=== PATIENT | female | born 1950 | race Caucasian/White ===

== ENCOUNTER 2016-11-22 07:33 | Emergency (ER) | payer OTHER ==
[~2016-11-22] VITALS: Ht 162.6 cm; Wt 68.0 kg
[~2016-11-22 07:33] MED LIST: ACETYLCYST100 MG/1 M INH; AMBIEN 5 MG TABL5 M1 PO; APAP/CODEINE ELI5 M1 PO; APAP500 PO; ASPIR 8181 MG PO; ASPIRIN325; B & O SUPPRETT1 EAC1 RECTAL; B COMPLEX WITH1 EACH PO; B COMPLEX1 EAC1 PO; BACTRIM DS TAB1 EACH PO; CEPACOL SORE T1 EAC7 MM; CIPROFLOXACIN500 M1 PO; COUMADIN 3 MG TA3 M1 PO; DOXYCYCLINE 10100 MG PO; DUONEB 2.5-0.5 M3 ML INH; EFFIENT10 MG; FIBER TABS625 MG PO; FISH OIL 1,001000 M2 PO; FLEXERIL PO; FLUSH FLUSH; GARLIC OIL1 EACH PO; GARLIC1 EACH PO; HYDROCODONE-AP1 EAC6 PO; KEFLEX500 MG PO; LEVAQUIN 500 M500 M1 PO; LIPITOR40 MG; LISINOPRIL2.5 MG PO; LISINOPRIL20 MG; LOPRESSOR25 PO; MAG-AL PLUS SUS30 ML PO; MAGOX 400400 MG PO; MAXIPIME1 GM IVPB; MIRALAX17 GM PO; MUCINEX TA600 MG/TA2 PO; NITROGLYCERIN0.4 MG; NORCO 5-325 TA1 EACH PO; NOVOLOG100 UNIT/1 SUBQ; NYSTATIN 1100000 U/M SW&SWALLOW; NYSTATIN TOP; PERCOCET 5-3251 EACH PO; PREVACID30 MG PO; PRILOSEC10 MG PER TUBE; PROTONIX40 M1 PO; REMERON15 MG PO; RESTORIL15 MG PO; TOPROL XL25 MG; TOPROL XL25 MG PO; TRAMADOL 50 MG50 MG PO; TYLENOL325 MG PO; ULCER MEDICATION; UNICOMPLEX M TA1 TA1 PO; VITALEE TABLET0.4 MG PO; VITAMINC500 PO; XANAX 0.5 MG0.5 MG PO; ZANAFLEX4 MG PO; ZYVOX600 MG PER TUBE; [UNRECOGNIZED DRUG - OTHER]
[2016-11-22] MEDS ORDERED: MOBIC15 MG PO (07:56)
[2016-11-22 08:48] VITALS: BP 123/71
== END 2016-11-22 08:50 | disposition home or self-care (01) ==
LOC: ER 07:33
DX: M25.511 Pain in right shoulder (principal); M25.512 Pain in left shoulder; M79.602 Pain in left arm; M79.601 Pain in right arm; E78.5 Hyperlipidemia, unspecified; I10 Essential (primary) hypertension; E66.8 Other obesity; Z86.79 Personal history of other diseases of the circulatory system; Z98.890 Other specified postprocedural states; Z88.1 Allergy status to other antibiotic agents; Z88.0 Allergy status to penicillin

== ENCOUNTER 2016-11-29 00:07 | Inpatient (IN) | payer OTHER ==
[2016-11-29] VITALS (9 sets, daily range): BP systolic 122–168; BP diastolic 64–117
[~2016-11-29] VITALS: Ht 167.6 cm; Wt 98.3 kg
--- NOTE | ~2016-11-29 | 2DMMODE ---
[place] [address] [facility] [place] [address] 2 D/M-MODE ECHOCARDIOGRAM Name: NATALI UNGER Room #: 205-P [facility] IN ..#: [id number] Admission: 11/29/16 Attend Phys: Ramses Escobedo, Discharge: Date of : 52 Date of Service: 11/29/16 1657 Report #: [id number] THIS REPORT FOR: //name// APPROVED REPORT Study performed: 11/29/2016 14:07:25 EXAM: Comprehensive 2D, Doppler, and color-flow Echocardiogram Patient Location: Bedside Room #: 205 Blood Pressure: 122/64 mmHg Other Information Study Quality: Technically Difficult Indications CAD Hypertension/HDD 2D Dimensions RVDd: 34.70 mm LVEF(%): 75.90 (>50%) IVSd: 9.79 (7-11mm) LVOT Diam: 17.11 (18-24mm) LVDd: 41.33 mm PWd: 10.46 (7-11mm) Ascending Ao: 29.56 (22-36mm) LVDs: 23.06 (25-40mm) Aortic Root: 24.54 mm IVC: 18.00 mm Tovar's LVEF: 75.90 % Volumes Left Atrial Volume (Systole) Single Plane 4CH: 50.16 mL Single Plane 2CH: 102.84 mL LA ESV Index: 38.00 mL/m2 Aortic Valve AoV Peak Harjeet.: 1.65 m/s AO Peak Gr.: 10.95 mmHg LVOT Max P.30 mmHg LVOT Max V: 1.04 m/s OPAL Vmax: 1.44 cm2 Mitral Valve MV Decel. Time: 211.03 ms [facility] [place] [address] [place] [address] 2 D/M-MODE ECHOCARDIOGRAM Name: NATALI UNGER Room #: 205-P [facility] IN [facility].#: [id number] Admission: 11/29/16 Attend Phys: Ramses Escobedo, Discharge: Date of : 52 Date of Service: 11/29/16 1657 Report #: [id number] MV PHT: 61.20 ms IVRT: 72.66 ms Pulmonary Valve PV Peak Harjeet.: 0.90 m/s PV Peak Gr.: 3.22 mmHg Pulmonary Vein P Vein S: 0.73 m/s P Vein A: 0.19 m/s P Vein D: 0.78 m/s P Vein A Dur.: 93.4 msec P Vein S/D Ratio: 0.94 Tricuspid Valve TR Peak Harjeet.: 3.31 m/s RAP Estimate: 10.00 mmHg TR Peak Gr.: 43.84 mmHg Left Ventricle The left ventricle is normal size. Regional wall motion is not well visualized but grossly normal. There is normal left ventricular wall thickness. The overall left ventricular systolic function appears normal. LVEF is 65-70%. Diastolic function is difficult to assess due to patient being unable to perform the valsalva maneuver. Right Ventricle The right ventricle is normal size. The right ventricular systolic function is normal. Atria Left atrium is mildly dilated. The right atrium size is normal. Aortic Valve The aortic valve is mildly sclerotic No aortic regurgitation is present. There is no aortic valvular stenosis. Mitral Valve The mitral valve is normal in structure. No mitral regurgitation. No evidence of mitral valve stenosis. Tricuspid Valve The tricuspid valve is normal in structure. Mild to moderate tricuspid regurgitation. Pulmonic Valve The pulmonary valve is normal in structure. Trace to mild pulmonic regurgitation. [address] [address] 2 D/M-MODE ECHOCARDIOGRAM Name: NATALI UNGER Room #: 205-P [facility] IN ..#: [id number] Admission: 11/29/16 Attend Phys: Ramses Escobedo, Discharge: Date of : 52 Date of Service: 11/29/16 1657 Report #: [id number] Great Vessels The aortic root is normal in size. The ascending aorta is normal in size. IVC is normal in size and collapses <50% with inspiration. Pericardium There is no pericardial effusion. There is no pleural effusion. <Conclusion> The overall left ventricular systolic function appears normal. LVEF is 65-70%. Regional wall motion is not well visualized but grossly normal. The aortic valve is mildly sclerotic without stenosis or insufficiency The mitral valve is normal in structure. No mitral regurgitation. Pulmonary artery pressure of 40mmHg There is no pericardial effusion. <ELECTRONICALLY SIGNED> By: Landon Gamboa MD, [facility] 11/29/161656 56 56 Landon Gamboa MD, FACC /INF
--- NOTE | ~2016-11-29 | EKG ---
[address] [address] ELECTROCARDIOGRAM REPORT Name: NATALI UNGER Room #: [facility] IN .R.#: [id number] Admission: 11/29/16 Attend Phys: Ramses Escobedo MD Discharge: 11/29/16 Date of : 52 Report #: [id number] THIS REPORT FOR: //name// [facility] Test Date: 2016-11-29 Test Time: 17:12:15 Pat Name: NATALI UNGER Department: Room: 205 Gender: F Wedger Machine: Sivakumar CALVO : 1950 Requested By: Ny Bullock Order Number: [id number] MD: Landon Gamboa Measurements Intervals [place] Rate: 52 P: 34 AL: 184 QRS: -40 QRSD: 101 T: 16 QT: 484 QTc: 451 Interpretive Statements Sinus bradycardia Left axis deviation Low voltage, precordial leads Nonspecific T wave abnormality No previous ECGs available for comparison Electronically Signed On 11-30-2016 7:44:57 CDT by Landon Gamboa [email or web address] <ELECTRONICALLY SIGNED> By: Landon Gamboa MD, [facility] 11/30/16 0744 171 11 Landon Gamboa MD, [facility] /EPI
--- NOTE | ~2016-11-29 | HC ---
[facility] [place] [address] CONSULTATION Name: NATALI UNGER Room #: 205-P [facility] IN ..#: [id number] Admission: 11/29/16 Attend Phys: Ramses Escobedo MD Discharge: 11/29/16 Date of : 52 Report #: [id number] THIS REPORT FOR: //name// CC: Ramses Pendleton DATE OF SERVICE: 11/29/2016 HISTORY OF PRESENT ILLNESS: This is a 65-year-old female patient who was seen by me. I discussed the patient with Dr. Escobedo. This patient is being evaluated for leg weakness. Talking to Dr. Escobedo, it would indicate that this patient's history is pretty inconsistent. She complained of some shoulder pain. She vomited on some staff member, etc. She said she has been unable to move the lower extremities since Sunday. That history cannot be confirmed. Everybody has noticed that the history has been pretty impersistent in this patient. REVIEW OF SYSTEMS: Indicate that this patient was here for encephalopathy at one time. She also has up pleural effusion with congestion. She had some flight of ideas. She had no trauma. According to her, it started spontaneously, on other occasion she said she is somewhat weaken all over the body. She does not cooperate with the examination at all. REVIEW OF SYSTEMS: Indicate she complained of rheumatoid arthritis pain. She has a history of hyperlipidemia. She had gastric ulcer in the past. She has polymyalgia rheumatica. She just like she has a previous history of encephalitis. This was a 14-point review of system, which was carried out. PAST MEDICAL HISTORY: Positive for encephalopathy. FAMILY HISTORY: Negative for early age stroke. SOCIAL HISTORY: She does not smoke or drink any alcohol. PHYSICAL EXAMINATION: Multiple attempts were made to examine this patient, but this patient does not cooperate very well. She moves the legs spontaneously, but when I asked her to move, she does not move. This has been the examination of the other people. She will not cooperate with higher function examination, she just talked irreverently . She has no meningeal sign. She looks reasonably well-developed individual. Pulses are difficult to feel. She has no edema, cyanosis or jaundice. Cardiac examination is stable. She does not appear to be in any respiratory difficulty. She is anemic with a hemoglobin of 9.9. Her INR is 4.6, INR is 4.6. She has not had any imaging study. [facility] [address] [place] [address] CONSULTATION Name: UTENATALI Room #: [facility]#: [id number] Admission: 11/29/16 Attend Phys: Ramses Escobedo MD Discharge: 11/29/16 Date of : 52 Report #: [id number] IMPRESSION: It is not clear what the patient's symptoms are from. Her exam is inconsistent. However, the concern is that she is on blood thinner. Because of that, I think we need to make sure there is no spine pathology for that I ordered an MRI in this patient and I will evaluate that and decide about the further management in this patient. RECOMMENDATIONS: MRI of the spine. I noticed this does not done yet. I would like to make sure that it is done today, even if the symptoms are going on since Sunday according to her. Dr. Ro will take over this patient's care from tomorrow morning at 8:00 and follow up with you. Thank very much for this referral. <ELECTRONICALLY SIGNED> By: Matthew Burns MD 12/02/16 1206 1730 0103 Matthew Burns MD /nt
[~2016-11-29 00:07] MED LIST changes: +MOBIC15 MG PO; +OMEPRAZOLE 20 M20 M1 PO; +PREDNISONE 10 M10 MG PO
[2016-11-29 02:00] LABS: HEMATOCRIT 29.1 % (37.0-47.0); HEMOGLOBIN 9.9 gm/dL (12.0-15.0); MCH 29.9 pg (26.0-34.0); MCHC 34.1 g/dL (28.0-37.0); MCV 87.8 fL (80.0-100.0); PLATELET COUNT 338 thou/uL (150-400); RBC 3.31 mil/uL (4.20-5.00); RDW 13.7 % (10.5-14.5); WBC 11.5 thou/uL (4.0-11.0)
[2016-11-29 02:10] LABS: MANUAL DIFF YES
[2016-11-29 02:14] LABS: ACETAMINOPHEN < 2 ug/mL (10-30); ALBUMIN 2.4 g/dL (3.4-5.0); ALKALINE PHOSPHATASE 167 U/L (46-116); ANION GAP 9 mmol/L (7-16); BUN 47 mg/dL (7-18); CALCIUM 8.2 mg/dL (8.5-10.1); CHLORIDE 108 mmol/L (98-107); CO2 22 mmol/L (21-32); CREATININE 1.3 mg/dL (0.6-1.0); GLUCOSE 157 mg/dL (74-106); POTASSIUM 4.7 mmol/L (3.5-5.1); SALICYLATE < 2.8 mg/dL (2.8-20.0); SGOT 43 U/L (15-37); SGPT 63 U/L (30-65); SODIUM 139 mmol/L (136-145); TOTAL BILIRUBIN 0.2 mg/dL (<0.1-1.0); TOTAL PROTEIN 5.9 g/dL (6.4-8.2)
[2016-11-29 02:27] LABS: ABSOLUTE NEUTROPHILS 9.9 thou/uL (1.4-8.2); MYELOCYTES 1 %; TOTAL CELL COUNT 100
[2016-11-29 08:34] LABS: ALBUMIN 2.4 g/dL (3.4-5.0); ALKALINE PHOSPHATASE 158 U/L (46-116); ANION GAP 6 mmol/L (7-16); BUN 47 mg/dL (7-18); CALCIUM 8.1 mg/dL (8.5-10.1); CHLORIDE 112 mmol/L (98-107); CO2 22 mmol/L (21-32); GLUCOSE 133 mg/dL (74-106); SGOT 35 U/L (15-37); SGPT 60 U/L (30-65); SODIUM 140 mmol/L (136-145); TOTAL BILIRUBIN 0.2 mg/dL (<0.1-1.0); TOTAL PROTEIN 5.5 g/dL (6.4-8.2); TROPONIN-I < 0.04 ng/mL (<0.04-0.07)
[2016-11-29 17:06] LABS: PROTIME 48.1 Seconds (9.3-11.4)
[2016-11-29 17:12] LABS: INR 4.6
[2016-11-30 02:11] LABS: GLYCOHEMOGLOBIN (HGB A1C) 5.9 % (4.8-5.6)
== END 2016-11-29 22:40 | disposition short-term general hospital (02) | DRG 91 ==
LOC: ER 00:07 → EROBS 00:13 → ER 00:13 → EROBS 01:25 → 2N 01:25
PROVIDERS: Internal Medicine; Nurse Practitioner Gerontology; Physician Assistant
PROC: 30233L1 Transfusion of Nonautologous Fresh Plasma into Peripheral Vein, Percutaneous Approach (ICD-10-PCS; principal; 2016-11-29)
PROC: 30233K1 Transfusion of Nonautologous Frozen Plasma into Peripheral Vein, Percutaneous Approach (ICD-10-PCS; principal; 2016-11-29)
DX: G95.19 Other vascular myelopathies (principal); G93.40 Encephalopathy, unspecified; E43 Unspecified severe protein-calorie malnutrition; J96.01 Acute respiratory failure with hypoxia; I50.33 Acute on chronic diastolic (congestive) heart failure; N17.9 Acute kidney failure, unspecified; E78.5 Hyperlipidemia, unspecified; I11.0 Hypertensive heart disease with heart failure; M19.90 Unspecified osteoarthritis, unspecified site; I25.10 Atherosclerotic heart disease of native coronary artery without angina pectoris; D63.8 Anemia in other chronic diseases classified elsewhere; E86.0 Dehydration; Z68.35 Body mass index [BMI] 35.0-35.9, adult; I25.5 Ischemic cardiomyopathy; R41.0 Disorientation, unspecified; Z88.1 Allergy status to other antibiotic agents; Z88.0 Allergy status to penicillin; Z86.718 Personal history of other venous thrombosis and embolism; Z95.5 Presence of coronary angioplasty implant and graft; Z79.82 Long term (current) use of aspirin; Z79.899 Other long term (current) drug therapy; Z95.828 Presence of other vascular implants and grafts; Z91.14 Patient's other noncompliance with medication regimen
CPT/HCPCS: 10081

== ENCOUNTER 2016-12-28 01:11 | Inpatient (IN) | payer OTHER ==
[2016-12-28] VITALS (7 sets, daily range): BP systolic 90–114; BP diastolic 46–68
[~2016-12-28] VITALS: Ht 162.6 cm; Wt 97.5 kg
--- NOTE | ~2016-12-28 | H ---
[facility] [place] [address] HISTORY AND PHYSICAL Name: NATALI UNGER Room #: 305-P [facility] IN M.R.#: [id number] Admission: 12/28/16 Attend Phys: Medardo Soria DO Discharge: 01/01/17 Date of : 52 Report #: [id number] THIS REPORT FOR: //name// CC: Medardo Pendleton ATTENDING PHYSICIAN: Dr. Briceño. PRIMARY CARE PHYSICIAN: Dr. Mara Pendleton. CHIEF COMPLAINT: Dysuria, fever, decreased urine output. HISTORY OF PRESENT ILLNESS: The patient is a 65-year-old female who was just admitted here at [facility] with altered mental status and lower extremity weakness. She was noted during that admission to have thoracic spinal hemorrhages on MRI and was transferred to [facility]. She said she did go right the surgery. She is not exactly sure what was done, but she has since been discharged to rehab facility. She has been there for about the last week. She had been on Coumadin at the time of her spinal bleeding that has since been discontinued. She says she continues to have weakness in her bilateral lower extremities and has not been able to ambulate yet or standing on her own. Apparently last week since arrival, she has been having some low-grade fevers. She says she has not been eating much because she really has not felt well, but denies any nausea, vomiting or diarrhea. She was noted in the ER to have significant UTI and has been admitted for further treatment. She has had a UTI during the past admission, which was positive for VRE and Ranjana. She has been hospitalized for a very long hospitalization in mid 2016 when she was treated for bilateral DVT and PE as well as diastolic heart failure. She developed significant dysphagia and required a PEG tube placement. That has subsequently been removed. She also had an IVC filter Placed. She was also treated for gluteal abscess which was drained. PAST MEDICAL HISTORY: Hyperlipidemia, diastolic heart failure, hypertension, osteoarthritis, obesity, coronary artery disease with stent placement, duodenal ulcer with perforation, possible polymyalgia rheumatica, bilateral DVT, PE, recent thoracic spine hemorrhage, gluteal abscess. PAST SURGICAL HISTORY: Left elbow pinning after fracture, , deviated septum surgery, PEG tube placement with subsequent removal, coronary stents, exploratory laparotomy for perforated ulcer, repair of umbilical hernia, IVC filter placement, gluteal abscess I and D. ALLERGIES: ERYTHROMYCIN and PENICILLIN. HOME MEDICATIONS: Med list was not sent by rehab, so current meds are unknown. We do note she was recently taken off her Coumadin because of her thoracic spine hemorrhages. [address] [address] HISTORY AND PHYSICAL Name: NATALI UNGER Room #: 305-P [facility] IN M.R.#: [id number] Admission: 12/28/16 Attend Phys: Medardo Soria DO Discharge: 01/01/17 Date of : 52 Report #: [id number] SOCIAL HISTORY: The patient is a never smoker, denies any alcohol or drug use. She had been living alone prior to her hospitalization, going to rehab. FAMILY HISTORY: Unknown. She was adopted. REVIEW OF SYSTEMS: Twelve point review of systems was reviewed with the patient and otherwise negative unless stated in the HPI. PHYSICAL EXAMINATION: GENERAL: The patient is an alert female in no acute distress. VITAL SIGNS: Temperature is 37.2, heart rate 82, respirations 18, blood pressure 107/54, oxygen is 95% on room air. HEENT: PERRLA. Sclerae are nonicteric. Oral mucosa is pink and dry. NECK: Supple, no JVD noted. CARDIOVASCULAR: No murmurs, rubs, or gallops. Normal S1, S2. RESPIRATORY: Breath sounds are clear in bilateral upper lobes. She is diminished in both bases. Breathing is nonlabored. ABDOMEN: Obese, soft, and nondistended. She does have significant tenderness across the lower quadrant to palpation, specifically in the suprapubic area. VASCULAR: 1+ bilateral lower extremity edema. Pedal pulses are 2+. GENITOURINARY: She does have a Avery catheter in place with cloudy yellow urine. NEUROLOGIC: The patient is alert and oriented. She is able to answer most questions and follow commands, although she does have significant bilateral lower extremity weakness. She is unable to lift her leg the bed at this time. Her hand grasps were 5/5 and there is no facial asymmetry. LABS AND DIAGNOSTICS: WBC is 14.8, hemoglobin 8.8, platelets 342. Sodium 138, potassium 3.7, BUN 21, creatinine 1.0, and glucose is 108. Lactate is 0.9. INR is 1.0. Urine showed 3+ protein, 1+ ketones, 3+ blood, positive nitrites, 3+ leukocyte esterase, many WBCs, and moderate bacteria. ASSESSMENT AND PLAN: 1. Complicated urinary tract infection. We will change her Avery out because it has not been done recently. Continue with Rocephin and follow urine culture. 2. Recent thoracic spine hemorrhages. She underwent recent surgery for these at [facility]. The incision looks clean, dry and intact. She will need to follow up with her surgeon at [facility] after discharge. 3. History of deep venous thrombosis and pulmonary embolism. Coumadin has been on hold since thoracic spine hemorrhages. She does have an IVC filter in place. She continues to have residual bilateral lower extremity weakness for which she will need to continue with physical therapy. 4. History of coronary artery disease with stents. The patient is denying any chest pain. 5. Anemia. This is acute on chronic. There is likely some component of [facility] [address] [place] [address] HISTORY AND PHYSICAL Name: NATALI UNGER Room #: 305-P [facility] IN [facility].#: [id number] Admission: 12/28/16 Attend Phys: Medardo Soria DO Discharge: 01/01/17 Date of : 52 Report #: [id number] blood loss anemia. Currently no signs of bleeding. 6. Deep venous thrombosis prophylaxis. Place sequential compression devices. We will continue to follow the patient closely throughout the hospitalization and make changes based on clinical status. <ELECTRONICALLY SIGNED> By: GLEN Arenas 01/02/17 0907 0910 1126 GLEN Arenas /nt
[2016-12-28 01:33] LABS: URINE BLOOD 3+ (Negative); URINE COLOR YELLOW; URINE GLUCOSE-RANDOM* NEGATIVE (Negative); URINE KETONES 1+ (Negative); URINE LEUKOCYTES-REFLEX 3+ (Negative); URINE PROTEIN (DIPSTICK) 3+ (Negative); URINE SPECIFIC GRAVITY 1.025 (1.003-1.035); URINE UROBILINOGEN 0.2 E.U./dl (0.2-1.0)
[2016-12-28 01:39] LABS: URINE BILIRUBIN NEGATIVE (Negative)
[2016-12-28 01:40] LABS: ICTOTEST (BILI CONFIRMATORY) Negative (Negative)
[2016-12-28 01:41] LABS: CASTS None Seen /LPF (None Seen); SQUAMOUS None Seen /LPF (0-3); URINE WBC-REFLEX >25 Many /HPF (0-5)
[2016-12-28 01:42] LABS: CRYSTALS None Seen /LPF (None Seen); URINE RBC 3-10 Few /HPF (0-2); WBC CLUMPS Packed (None Seen)
[2016-12-28 02:05] LABS: ABSOLUTE NEUTROPHILS 11.1 thou/uL (1.4-8.2); BASOPHILS 0.5 % (0.0-2.0); EOSINOPHILS 0.7 % (0.0-3.0); HEMATOCRIT 26.8 % (37.0-47.0); HEMOGLOBIN 8.8 gm/dL (12.0-15.0); LYMPHOCYTES 17.4 % (24.0-44.0); MCH 29.8 pg (26.0-34.0); MCV 90.4 fL (80.0-100.0); MONOCYTES 6.7 % (1.0-8.0); PLATELET COUNT 342 thou/uL (150-400); POLYS 74.7 % (36.0-66.0); RBC 2.96 mil/uL (4.20-5.00); WBC 14.8 thou/uL (4.0-11.0)
[2016-12-28 02:09] LABS: MANUAL DIFF NO
[2016-12-28 02:10] LABS: CALCIUM 8.6 mg/dL (8.5-10.1); POTASSIUM 3.7 mmol/L (3.5-5.1)
[2016-12-28 04:58] LABS: PROTIME 10.7 Seconds (9.3-11.4)
[2016-12-28] MEDS ORDERED: COUMADIN 5 MG TA5 M1 PO (05:01)
[2016-12-29] MEDS ORDERED: FLEXERIL PO (02:22)
[2016-12-29] MEDS ORDERED: FLOMAX0.4 MG PO (02:23)
[2016-12-29] MEDS ORDERED: LIDODERM 5%1 PATC1 TRANSDERM (02:24)
[2016-12-29] MEDS ORDERED: OLANZAPINE ODT5 MG PO (02:27)
[2016-12-29] MEDS ORDERED: OXYCONTIN10 M1 PO (02:30)
[2016-12-29] MEDS ORDERED: MOM PO (02:31)
[2016-12-29] MEDS ORDERED: PROTONIX40 M1 PO (02:32)
[2016-12-29] MEDS ORDERED: SEROQUEL 25 MG25 M1 PO (02:33)
[2016-12-29 03:51] LABS: ABSOLUTE NEUTROPHILS 6.3 thou/uL (1.4-8.2); BASOPHILS 0.6 % (0.0-2.0); EOSINOPHILS 1.8 % (0.0-3.0); HEMATOCRIT 24.1 % (37.0-47.0); HEMOGLOBIN 8.1 gm/dL (12.0-15.0); LYMPHOCYTES 18.6 % (24.0-44.0); MCHC 33.7 g/dL (28.0-37.0); MCV 89.1 fL (80.0-100.0); MONOCYTES 6.2 % (1.0-8.0); PLATELET COUNT 326 thou/uL (150-400); POLYS 72.8 % (36.0-66.0); RBC 2.71 mil/uL (4.20-5.00); RDW 15.6 % (10.5-14.5); WBC 8.7 thou/uL (4.0-11.0)
[2016-12-29 03:57] LABS: MANUAL DIFF NO
[2016-12-29 03:59] LABS: CALCIUM 8.5 mg/dL (8.5-10.1); CREATININE 0.6 mg/dL (0.6-1.0); POTASSIUM 3.8 mmol/L (3.5-5.1)
[2016-12-29 04:10] VITALS: BP 106/58
[2016-12-29 09:50] VITALS: BP 121/66
[2016-12-29] MEDS ORDERED: KEFLEX500 MG PO (11:12)
[2016-12-29] MEDS ORDERED: NORCO 5-325 TA1 EACH PO (11:12)
[2016-12-29 17:19] VITALS: BP 135/81
[2016-12-29 19:29] VITALS: BP 114/59
[2016-12-30 03:55] VITALS: BP 125/75
[2016-12-30 07:52] VITALS: BP 112/68
[2016-12-30 16:23] VITALS: BP 134/75
[2016-12-30 20:03] VITALS: BP 100/64
[2016-12-31 03:23] VITALS: BP 126/64
[2016-12-31 08:35] VITALS: BP 133/78
[2016-12-31 17:20] VITALS: BP 132/74
[2016-12-31 19:14] VITALS: BP 152/86
[2017-01-01 04:15] VITALS: BP 150/83
[2017-01-01 07:50] VITALS: BP 149/83
== END 2017-01-01 16:42 | DRG 871 ==
LOC: ER 01:11 → 3N 03:46 → EROBS 03:46 → 3N 04:13
PROVIDERS: Emergency Medicine; Family Medicine; Nurse Practitioner Acute Care
DX: A41.9 Sepsis, unspecified organism (principal); G93.41 Metabolic encephalopathy; N39.0 Urinary tract infection, site not specified; I50.30 Unspecified diastolic (congestive) heart failure; N17.9 Acute kidney failure, unspecified; E78.5 Hyperlipidemia, unspecified; M19.90 Unspecified osteoarthritis, unspecified site; I25.10 Atherosclerotic heart disease of native coronary artery without angina pectoris; E66.9 Obesity, unspecified; I11.0 Hypertensive heart disease with heart failure; D64.9 Anemia, unspecified; Z95.5 Presence of coronary angioplasty implant and graft; Z86.718 Personal history of other venous thrombosis and embolism; Z68.36 Body mass index [BMI] 36.0-36.9, adult; Z87.81 Personal history of (healed) traumatic fracture; Z79.899 Other long term (current) drug therapy; Z88.1 Allergy status to other antibiotic agents; Z88.0 Allergy status to penicillin; Z86.711 Personal history of pulmonary embolism; Z93.1 Gastrostomy status
CPT/HCPCS: 10094

== ENCOUNTER 2017-01-01 18:33 | Emergency (ER) | payer OTHER ==
[~2017-01-01] VITALS: Ht 162.6 cm; Wt 86.6 kg
[~2017-01-01 18:33] MED LIST changes: +COUMADIN 5 MG TA5 M1 PO; +FLOMAX0.4 MG PO; +LIDODERM 5%1 PATC1 TRANSDERM; +MOM PO; +OLANZAPINE ODT5 MG PO; +OXYCONTIN10 M1 PO; +SEROQUEL 25 MG25 M1 PO
[2017-01-01 21:41] VITALS: BP 137/85
== END 2017-01-01 20:39 ==
LOC: ER 18:33
DX: M54.5 Low back pain (principal); M54.6 Pain in thoracic spine; G89.29 Other chronic pain; M54.2 Cervicalgia; E78.5 Hyperlipidemia, unspecified; I10 Essential (primary) hypertension; M19.90 Unspecified osteoarthritis, unspecified site; E66.9 Obesity, unspecified; I25.10 Atherosclerotic heart disease of native coronary artery without angina pectoris; Z88.1 Allergy status to other antibiotic agents; Z88.0 Allergy status to penicillin; W17.89XA Other fall from one level to another, initial encounter; Y93.89 Activity, other specified; Y92.89 Other specified places as the place of occurrence of the external cause; Y99.8 Other external cause status

== ENCOUNTER 2017-01-11 18:41 | Emergency (ER) | payer OTHER ==
[~2017-01-11] VITALS: Ht 162.6 cm; Wt 86.6 kg
[2017-01-11 20:16] LABS: ABSOLUTE NEUTROPHILS 5.1 thou/uL (1.4-8.2); BASOPHILS 0.8 % (0.0-2.0); EOSINOPHILS 0.9 % (0.0-3.0); HEMATOCRIT 30.1 % (37.0-47.0); LYMPHOCYTES 25.3 % (24.0-44.0); MCH 29.6 pg (26.0-34.0); MCHC 33.1 g/dL (28.0-37.0); MCV 89.6 fL (80.0-100.0); MONOCYTES 9.2 % (1.0-8.0); PLATELET COUNT 341 thou/uL (150-400); POLYS 63.8 % (36.0-66.0); RBC 3.36 mil/uL (4.20-5.00); RDW 16.7 % (10.5-14.5); WBC 8.1 thou/uL (4.0-11.0)
[2017-01-11 20:20] LABS: MANUAL DIFF NO
[2017-01-11 20:26] LABS: CALCIUM 9.3 mg/dL (8.5-10.1); CREATININE 0.9 mg/dL (0.6-1.0); POTASSIUM 3.5 mmol/L (3.5-5.1)
[2017-01-11 20:45] LABS: URINE BILIRUBIN NEGATIVE (Negative); URINE BLOOD 3+ (Negative); URINE COLOR YELLOW; URINE GLUCOSE-RANDOM* NEGATIVE (Negative); URINE KETONES NEGATIVE (Negative); URINE NITRITE POSITIVE (Negative); URINE PROTEIN (DIPSTICK) 1+ (Negative); URINE UROBILINOGEN 0.2 E.U./dl (0.2-1.0)
[2017-01-11 20:51] LABS: BACTERIA >30 Many /HPF (None Seen); CASTS None Seen /LPF (None Seen); CRYSTALS None Seen /LPF (None Seen); SQUAMOUS None Seen /LPF (0-3); URINE WBC >25 Many /HPF (0-5)
[2017-01-11] MEDS ORDERED: MACROBID 100 M100 M1 PO (21:14)
[2017-01-11 23:51] VITALS: BP 125/74
== END 2017-01-11 23:51 ==
LOC: ER 18:41
PROVIDERS: Emergency Medicine
DX: N39.0 Urinary tract infection, site not specified (principal); R51 Headache; E78.5 Hyperlipidemia, unspecified; I10 Essential (primary) hypertension; M19.90 Unspecified osteoarthritis, unspecified site; E66.9 Obesity, unspecified; I25.10 Atherosclerotic heart disease of native coronary artery without angina pectoris; Z98.890 Other specified postprocedural states; Z88.0 Allergy status to penicillin; Z88.1 Allergy status to other antibiotic agents

== ENCOUNTER → 2017-10-29 | Outpatient (CLI) | payer OTHER ==
[~2017-10-29] MED LIST changes: +MACROBID 100 M100 M1 PO
== END ==
LOC: HYPER 08:45
DX: T24.212A Burn of second degree of left thigh, initial encounter (principal); T31.0 Burns involving less than 10% of body surface; S31.109A Unspecified open wound of abdominal wall, unspecified quadrant without penetration into peritoneal cavity, initial encounter; I21.9 Acute myocardial infarction, unspecified; I25.2 Old myocardial infarction; X58.XXXA Exposure to other specified factors, initial encounter; X08.8XXA Exposure to other specified smoke, fire and flames, initial encounter; Y93.89 Activity, other specified; Y92.89 Other specified places as the place of occurrence of the external cause; Y99.8 Other external cause status

== ENCOUNTER → 2017-11-12 | Outpatient (CLI) | payer OTHER | LOC: HYPER 06:48 | DX: T24.012D Burn of unspecified degree of left thigh, subsequent encounter (principal); R21 Rash and other nonspecific skin eruption; I25.2 Old myocardial infarction; X08.8XXD Exposure to other specified smoke, fire and flames, subsequent encounter ==

== ENCOUNTER 2018-01-10 15:57 | Inpatient (IN) | payer OTHER ==
[~2018-01-10] VITALS: Ht 162.6 cm; Wt 79.0 kg
--- NOTE | ~2018-01-10 | HC ---
[facility] [place] [place] [address] CONSULTATION Name: NATALI UNGER Room #: 417-I ADM IN ..#: [id number] Admission: 01/10/18 Attend Phys: Ramses Escobedo MD Discharge: Date of : 52 Report #: [id number] THIS REPORT FOR: //name// CC: Ramses Peters ATTENDING PHYSICIAN: Ramses Escobedo MD CONSULTATION REQUESTED BY: Isac Peters MD HISTORY OF PRESENT ILLNESS: A 67-year-old white woman admitted [facility] the [facility] through the Emergency Room with left gluteal decubitus soiled with stool. Apparently, the patient had this wound cared for by nursing who referred to Dr. Isac ePters and the patient is admitted. She is started on vancomycin. Apparently, this patient has suffered a neurologic damage to her spinal cord [facility] The patient apparently has weakness, paraparesis, left lower extremity more so than the right and she is not very well versed as to what had transpired all these years. I suspect she may have developed a hemorrhagic lesion that resulting the spinal cord compression, for which she underwent the decompression laminectomy. DRUG ALLERGIES: PENICILLIN, UNKNOWN ADVERSE REACTION; ERYTHROMYCIN, UNKNOWN ADVERSE REACTION. MEDICATIONS: She is on treatment with pantoprazole, lidocaine patch, tamsulosin, metoprolol, Silvadene topical, enoxaparin 40 mg subQ daily, quetiapine fumarate at bedtime, polyethylene glycol, vancomycin loading dose and subsequently 750 mg IV daily. She is also on cyclobenzaprine. SOCIAL HISTORY: . Disabled. Two children. PAST MEDICAL HISTORY: . Dyslipidemia. Hypertension. Coronary artery disease. Inferior vena cava filter after her pulmonary embolism. History of [facility] with subsequent development of left lower extremity weakness, more so than the right. The patient is wheelchair bound. PHYSICAL EXAMINATION: GENERAL: Well-developed woman, not toxic looking, afebrile. VITAL SIGNS: Since admission, temperature 98.6, pulse 83, respirations 18, BP 107/60, O2 saturation normal at room air. HEENMT: Within range. NECK: Supple. She does have a long midline surgical scar from C5 through T6 posteriorly. [address] [place] [address] CONSULTATION Name: UTENATALI Room #: 417-I [facility] IN [facility]#: [id number] Admission: 01/10/18 Attend Phys: Ramses Escobedo MD Discharge: Date of : 52 Report #: [id number] LUNGS: Clear. HEART: S1, S2. ABDOMEN: Reveals surgical scar of previous perforated gastric ulcer. Abdomen is soft. No palpable masses or megaly. BACK: Reveals a stage 2-3 left gluteal decubitus soiled with stool. EXTREMITIES: Revealed weakness particularly left lower extremity. The right appears to be weak as well. LABORATORY DATA: Sodium 142, potassium 4.1, BUN 23, creatinine 1.3, glucose 107. Alkaline phosphatase elevated at 196 U/L, upper limits of normal 116. Note is made that the patient have significant elevation of alkaline phosphatase in the past. WBC 7.9, hemoglobin 11.6, platelets 326,000. White blood cell count differential yesterday was normal. Prealbumin 19.2. Urinalysis revealed 3+ blood, 3+ leukocyte esterase, squamous epithelial cells present indicating vaginal contamination. There is pyuria, bacteriuria and microscopic hematuria as well. MICROBIOLOGY DATA: Decubitus culture obtained. Gram stain and culture result pending. Blood cultures were obtained in the Emergency Room as well. Note is made previously, the patient had Pseudomonas aeruginosa in urine. RADIOLOGY EVALUATION: None available for this hospitalization. ASSESSMENT: 1. Stage 2-3 left gluteal decubitus with stool soiling. 2. 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 3. History of pulmonary embolism treated with warfarin and subsequently inferior vena cava filter. 4. History of perforated gastric ulcer status post exploratory laparotomy and patching of perforated ulcer. 5. History of right gluteal abscess. 6. Chronic pain syndrome. 7. Coronary artery disease. SUGGESTIONS: Recommend continue vancomycin. If MRSA screen negative, discontinue vancomycin, start meropenem 500 mg IV every 8 hours. Obtain ESR, CRP as well as the urine culture. We will discuss with Dr. Isac Peters as to how to approach the patient's care. Dr. Peters and Dr. Escobedo, thank you for requesting my suggestions. <ELECTRONICALLY SIGNED> By: Dilip Keyes MD 01/14/18 1033 1114 0008 Dilip Keyes MD /nt
--- NOTE | ~2018-01-10 | O ---
[facility] [place] [address] OPERATIVE REPORT Name: NATALI UNGER Room #: 417-I [facility] IN ..#: [id number] Admission: 01/10/18 Attend Phys: Ramses Escobedo MD Discharge: Date of : 52 Report #: [id number] THIS REPORT FOR: //name// CC: Ramses Pendleton Isacshira TapiaPeters DATE OF SERVICE: 01/15/2018 PREOPERATIVE DIAGNOSES: 1. Unstageable sacral/perianal decubitus ulcer. 2. Chronic fecal contamination. 3. Generalized debility. 4. Paraplegia. POSTOPERATIVE DIAGNOSES: 1. Stage 3 sacral/perianal decubitus ulcer. 2. Chronic fecal contamination. 3. Generalized debility. 4. Paraplegia. PROCEDURES PERFORMED: 1. Excisional debridement of skin, subcutaneous tissue and muscle of a stage 3 sacral/perianal decubitus wound, ultimately measuring 3 x 3 cm in dimension (9 square cm). Preoperative wound measurements were 2 x 2 cm in dimension with scant periwound necrosis. 2. Diverting loop transverse colostomy. SURGEON: Tejas Nowak MD MAINTENANCE ASSISTANT: NILS Ivan ANESTHESIA: General endotracheal anesthesia. ESTIMATED BLOOD LOSS: Minimal (less than 10 mL). COMPLICATIONS: None appreciated. SPECIMENS: Debrided sacral/perianal tissue to pathology. INDICATIONS: The patient is a 67-year-old female with paraplegia and generalized debility who has had chronic fecal contamination of a perianal/sacral decubitus wound as she sits in her feces for hours on end with inability to obtain proper wound care. The patient's wound has a slight amount of periwound necrosis and improved cellulitis on antibiotic therapy and as such, indication was for debridement today with a diverting colostomy to allow for [facility] [address] [place] [address] OPERATIVE REPORT Name: NATALI UNGER Room #: 417-I [facility] IN [facility]#: [id number] Admission: 01/10/18 Attend Phys: Ramses Escobedo MD Discharge: Date of : 51 Report #: [id number] proper long-term wound healing. DESCRIPTION OF PROCEDURE: After explaining the risks, benefits and alternatives of the procedure with the patient in detail in the preoperative holding area and obtaining written consent, the patient was brought to the operating room and placed supine on the operating room table. After conducting a thorough timeout procedure, verifying correct patient and procedure, the patient was given general endotracheal anesthesia. Once adequate anesthesia was obtained, her SCDs were hooked up to pneumatic compression device. She was already on an inpatient regimen of IV antibiotic therapy, which was all in line with the SCIP protocol. The patient was now positioned in the prone position with all pressure points appropriately padded and her sacral/perianal wound was prepped and draped in a standard surgical sterile fashion. Electrocautery was used to circumferentially debride all nonviable skin, subcutaneous tissue and muscle from the periphery of the wound, carried to the depths of the wound where there was a healthy viable granulation tissue present. The General Compressiononix ultrasonic debridement tool was used to remove all remaining biofilm and nonviable tissue throughout the bed of the wound. Electrocautery was used for hemostasis. The wound was packed after meticulous hemostasis with sterile saline soaked 4 x 4s, dressed with gauze, ABDs and Medipore tape. The patient was now positioned back in the supine position on the operating room table and her abdomen was prepped and draped in standard surgical sterile fashion. A 10 mL of 1% plain lidocaine was used to anesthetize the skin, midway between the xiphoid and the umbilicus, 3 cm to the patient's right. A #15 bladed scalpel was used to create a 2.5 cm vertical incision at this location. Electrocautery was used to carry this down through skin and subcutaneous tissues to ensure hemostasis. Once I arrived upon the anterior fascia, this was scored longitudinally as well revealing the right rectus muscle posteriorly. The belly of the rectus muscle was spread with a hemostat revealing the posterior rectus sheath. This was elevated between hemostats and Metzenbaum scissors were used to gain entry into the peritoneal cavity. A finger was placed in the abdomen and the fascia was opened vertically for the 2.5 cm distance of the skin incision using electrocautery. The transverse colon was seen to reside immediately posterior to this incision. This was grasped with a [place]inas clamp and elevated in the bed of the wound. A window was made in the mesocolon by blunt finger passage with ease. A colostomy retention bar was placed through this window and was anchored to the skin using 2-0 nylon in standard fashion. The antimesenteric aspect of the colon was opened with electrocautery to create a colotomy and then a hemostat was placed within the colotomy and used to control the incision so as not to cause injury to the back wall of the colon from electrocautery burn. The colotomy was extended approximately 2 cm longitudinally. I then used 3-[address] 4 sutures of full thickness bites of the colon and anchoring it to the dermis on either side of the retention bar on both the superior and inferior aspects. These 4 sutures were placed and imbricated the colon appropriately. The remaining mucocutaneous junction on both the right and left lateral aspects was then completed using 3-0 Vicryl in a standard running fashion to anchor the [facility] [address] [place] [address] OPERATIVE REPORT Name: NATALI UNGER Room #: 417-I ADM IN .R.#: [id number] Admission: 01/10/18 Attend Phys: Ramses Escobedo MD Discharge: Date of : 51 Report #: [id number] mucocutaneous junction on either side. This gave us an excellently oriented diverting loop transverse colostomy. Digital finger intubation of the colostomy showed it to be patent to a subfascial level. A sterile colostomy appliance was then applied in standard fashion completing the procedure. At the end of the procedure, all instrument, needle and sponge counts were correct. The patient tolerated the procedure without incident, was awakened in the operating room, transitioned to the recovery room in stable condition with no apparent complications. <ELECTRONICALLY SIGNED> By: Tejas Nowak MD, FACS 01/17/18 1009 [id number] Tejas Nowak MD, FACS /nt
--- NOTE | ~2018-01-10 | HC ---
[facility] [place] [address] CONSULTATION Name: NATALI UNGER Room #: 417-I ADM IN ..#: [id number] Admission: 01/10/18 Attend Phys: Ramses Escobedo MD Discharge: Date of : 51 Report #: [id number] THIS REPORT FOR: //name// CC: Ramses Peters DATE OF SERVICE: 01/10/2018 GENERAL SURGERY CONSULT REFERRING PROVIDER: Isac Peters MD REASON FOR CONSULTATION: Sacral decubitus wound. HISTORY OF PRESENT ILLNESS: The patient is a 67-year-old female well known to me as I performed a prior debridement on her while hospitalized at [facility], who is paraplegic and is admitted directly from Dr. Peters' wound care clinic for recurrent sacral decubitus ulcer. The patient has had ongoing issues over the past year with intermittent wound breakdown as she lays in her own feces for hours on end and as her wound has worsened once again, she is being admitted for proper wound care, antibiotic therapy and ongoing care. PAST MEDICAL HISTORY: Extensive and includes prior perforated duodenal ulcer, diastolic CHF, prior acute respiratory failure, paraplegia, multiple sacral decubitus wounds and chronic pain. HOME MEDICATIONS: Toprol, Flexeril, Flomax, Lidoderm patch, Protonix, Seroquel and nitroglycerin. ALLERGIES: ERYTHROMYCIN AND PENICILLIN. SOCIAL HISTORY: Does not utilize tobacco, alcohol or illicit drugs. FAMILY HISTORY: Reviewed and noncontributory. REVIEW OF SYSTEMS: GENERAL: The patient denies nocturnal fevers or chills. HEENT: No change in vision or change in hearing. NECK: No swelling or difficulty swallowing. HEART: No chest pain or palpitations. LUNGS: No cough or shortness of breath. ABDOMEN: No nausea, no vomiting. GENITOURINARY: No dysuria or hematuria. ENDOCRINE: No polyuria or polydipsia. HEMATOLOGIC: No history of bleeding or easy bruising. [facility] [address] [place] [address] CONSULTATION Name: NATALI UNGER Room #: 417-I [facility] IN [facility].#: [id number] Admission: 01/10/18 Attend Phys: Ramses Escobedo MD Discharge: Date of : 51 Report #: [id number] EXTREMITIES: No history of weakness or limited range of motion. NEUROLOGIC: No history of syncope or near syncopal episodes. SKIN AND INTEGUMENT: No history of abnormal lesions or moles. PSYCHIATRIC: No history of anxiety or depression. PHYSICAL EXAMINATION: VITAL SIGNS: Temperature 98.6, pulse 87, respirations 16, blood pressure 129/87. She is 5 feet 4 inches tall and weighs 174 pounds. GENERAL: She is alert, in no acute distress. HEENT: Normocephalic, atraumatic. Pupils equal, round, reactive to light. NECK: Supple, without lymphadenopathy. Trachea midline. HEART: Regular rate and rhythm. LUNGS: Clear to auscultation bilaterally. ABDOMEN: Soft, nontender, nondistended. GENITOURINARY: Normal external female genitalia. EXTREMITIES: No clubbing, cyanosis or edema. NEUROLOGIC: Cranial nerves 2-12 are grossly intact. She does have paraplegia. PSYCHIATRIC: Normal mood and affect. SKIN AND INTEGUMENT: Unstageable sacral decubitus wound without gross infection. She does have mild surrounding erythema. There is stool covering her wound. LABORATORY AND X-RAY DATA: CBC shows white blood cell count of 10.8 thousand, hemoglobin 12.8, platelets 417,000. Creatinine 1.2, albumin 3.5, lactic acid normal at 0.8. Prealbumin is 19.2. ASSESSMENT AND PLAN: A 67-year-old female well known to me from multiple prior debridements and exploratory laparotomy for perforated duodenal ulcer as well as PEG tube interventions in the past, who presents with a recurrent unstageable sacral decubitus wound. She does have mild surrounding erythema, but no gross fluctuance. The patient will ultimately necessitate debridement of this wound. I recommend admission with IV fluids and antibiotics per the direction of Infectious Disease. The patient has been refusing to proceed with a colostomy, which is necessary for proper wound care in this patient; however, upon discussing with her this evening, she has stated she would be open to it after ongoing discussions and as such, we will hold off on debridement at this time and hopefully proceed with debridement and colostomy in the same setting to avoid multiple anesthetic exposures, especially in light of this not being an emergency debridement. I sincerely appreciate this consult. I did spend greater than 60 minutes at the patient's bedside this evening discussing all the above. I will follow the [address] [address] CONSULTATION Name: NATALI UNGER Room #: 417-I ADM IN M.R.#: [id number] Admission: 01/10/18 Attend Phys: Ramses Escobedo MD Discharge: Date of : 51 Report #: [id number] patient closely and leave any further recommendations in the patient's chart as appropriate. <ELECTRONICALLY SIGNED> By: Tejas Nowak MD, FACS 01/14/18 1717 0925 [id number] Tejas Nowak MD, FACS /nt
--- NOTE | ~2018-01-10 | HC ---
[place] [address] CONSULTATION Name: NATALI UNGER Room #: 417-I [facility]#: [id number] Admission: 01/10/18 Attend Phys: Ramses Escobedo MD Discharge: 01/18/18 Date of : 51 Report #: [id number] THIS REPORT FOR: //name// CC: Ramses Peters DATE OF SERVICE: 01/11/2018 CHIEF COMPLAINT: Coccygeal/perirectal pressure ulceration. HISTORY OF PRESENT ILLNESS: This is a 67-year-old female patient with a history of paraplegia after a spinal infection that occurred approximately a year ago. She has some history of coronary artery disease. She has developed pressure ulceration in the sacrococcygeal region. She was seen by my partner, Dr. Peters in the wound clinic and admitted for further evaluation and treatment. The patient is incontinent of stools. She has not been receptive to the idea of a diverting colostomy thus far. PAST MEDICAL HISTORY: Rheumatoid arthritis, perforated duodenal ulcer, history of gluteal abscess, obesity, coronary artery disease. SOCIAL HISTORY: Negative for alcohol or tobacco use. FAMILY HISTORY: Noncontributory, unknown due to the fact that she is adopted. MEDICATIONS: The patient's medications include metoprolol, Flexeril, Flomax, Lidoderm patch, Protonix, sublingual nitroglycerin p.r.n. and Seroquel. ALLERGIES: TO ERYTHROMYCIN AND PENICILLIN. REVIEW OF SYSTEMS: CONSTITUTIONAL: The patient denies fever, chills or weight loss. NEUROLOGICAL: The patient has paraplegia secondary to spinal cord injury. ENT: The patient denies earache, nasal drainage, sore throat. CARDIOVASCULAR: The patient denies chest pain, palpitations, or diaphoresis. PULMONARY: The patient denies cough or shortness of breath. GASTROINTESTINAL: The patient denies nausea, vomiting, diarrhea, or abdominal pain. She does have stool incontinence. SKIN: The patient notes the pressure ulceration to the coccygeal region. The other systems in a 14-point review of systems are negative. PHYSICAL EXAMINATION: VITAL SIGNS: At this time include pulse rate of 80, respiration of 18, blood pressure 113/69, temperature 98.3. GENERAL: This is a chronically ill-appearing male patient who appears to be in [address] [address] CONSULTATION Name: NATALI UNGER Room #: 417-I [facility] IN [facility].#: [id number] Admission: 01/10/18 Attend Phys: Ramses Escobedo MD Discharge: 01/18/18 Date of : 51 Report #: [id number] no distress. HEENT: Head is normocephalic. Nose and throat are clear. NECK: Supple. CHEST: Clear. HEART: Regular rate and rhythm. ABDOMEN: Bowel sounds present. MUSCULOSKELETAL: Examination of the coccyx demonstrates a stage 2 pressure ulcer that is reasonably clean with a little bit of fibrin. It is very, very close, almost adjacent to the rectal area and it is contaminated with fecal material upon this examination. EXTREMITIES: Lower extremities demonstrate slight contractures. SKIN: [place], warm and dry. NEUROLOGIC: The patient has paraplegia, otherwise alert, oriented and appropriate. LABORATORY DATA: Includes sodium 142, potassium 4.1, chloride 107, CO2 of 26, BUN 23, creatinine is 1.3, glucose 107. Albumin is 3.5. White blood cell count 7.9 with hemoglobin 11.6. CLINICAL IMPRESSION: 1. Stage 3 pressure ulceration to the coccyx. 2. Paraplegia secondary to prior spinal cord injury. 3. Fecal incontinence with wound contamination. 4. Chronic back pain. 5. Rheumatoid arthritis. RECOMMENDATIONS: At this point in time, we will recommend local care with moist gauze dressings. General Surgery has been consulted for surgical debridement. I have discussed with her the possibility of a diverting colostomy and she seems open to the idea. She is concerned that it would not be a temporary or reversible procedure. We will discuss this further with surgery, but it is my recommendation that she have fecal diversion. We will continue with aggressive nutritional support, low air loss mattress, q.2 hour turning and repositioning. I appreciate being asked to see her in consultation. <ELECTRONICALLY SIGNED> By: Delano Castaneda MD 01/21/18 1406 0828 1428 Delano Castaneda MD /nt
[~2018-01-10 15:57] MED LIST changes: -NITROSTAT0.4 M1 SUBLING
[2018-01-10 16:02] VITALS: BP 129/87
[2018-01-10] MEDS ORDERED: NITROSTAT0.4 M1 SUBLING (16:19)
[2018-01-10 17:39] LABS: ABSOLUTE NEUTROPHILS 6.4 thou/uL (1.4-8.2); BASOPHILS 1.6 % (0.0-2.0); EOSINOPHILS 1.3 % (0.0-3.0); HEMATOCRIT 38.1 % (37.0-47.0); HEMOGLOBIN 12.8 gm/dL (12.0-15.0); LYMPHOCYTES 32.1 % (24.0-44.0); MCH 28.1 pg (26.0-34.0); MCHC 33.7 g/dL (28.0-37.0); MCV 83.4 fL (80.0-100.0); PLATELET COUNT 417 thou/uL (150-400); RBC 4.56 mil/uL (4.20-5.00); RDW 14.1 % (10.5-14.5); WBC 10.8 thou/uL (4.0-11.0)
[2018-01-10 17:47] LABS: CALCIUM 9.8 mg/dL (8.5-10.1); CREATININE 1.2 mg/dL (0.6-1.0); POTASSIUM 3.7 mmol/L (3.5-5.1)
[2018-01-10 17:53] LABS: ALBUMIN 3.5 g/dL (3.4-5.0); DIRECT BILIRUBIN 0.1 mg/dL (<0.1-0.3); TOTAL BILIRUBIN 0.6 mg/dL (<0.1-1.0); TOTAL PROTEIN 8.2 g/dL (6.4-8.2)
[2018-01-10 19:04] VITALS: BP 129/87
[2018-01-10 19:20] VITALS: BP 138/83
[2018-01-10 19:20] LABS: ALBUMIN 3.5 g/dL (3.4-5.0); TOTAL PROTEIN 8.1 g/dL (6.4-8.2)
[2018-01-10 19:45] LABS: TSH 1.703 uIU/mL (0.358-3.740)
[2018-01-11 00:01] VITALS: BP 108/64
[2018-01-11 04:20] VITALS: BP 113/69
[2018-01-11 06:03] LABS: HEMATOCRIT 33.9 % (37.0-47.0); HEMOGLOBIN 11.6 gm/dL (12.0-15.0); MCH 28.5 pg (26.0-34.0); MCHC 34.3 g/dL (28.0-37.0); RBC 4.08 mil/uL (4.20-5.00); RDW 13.7 % (10.5-14.5); WBC 7.9 thou/uL (4.0-11.0)
[2018-01-11 06:22] LABS: CALCIUM 9.2 mg/dL (8.5-10.1); CREATININE 1.3 mg/dL (0.6-1.0); POTASSIUM 4.1 mmol/L (3.5-5.1)
[2018-01-11 07:25] VITALS: BP 107/60
[2018-01-11 07:44] LABS: URINE BILIRUBIN NEGATIVE (Negative); URINE BLOOD 3+ (Negative); URINE CLARITY CLOUDY; URINE COLOR YELLOW; URINE GLUCOSE-RANDOM* NEGATIVE (Negative); URINE KETONES NEGATIVE (Negative); URINE LEUKOCYTES 3+ (Negative); URINE NITRITE NEGATIVE (Negative); URINE PROTEIN (DIPSTICK) 1+ (Negative); URINE SPECIFIC GRAVITY 1.015 (1.005-1.035); URINE UROBILINOGEN 0.2 E.U./dl (0.2-1.0)
[2018-01-11 08:03] LABS: CASTS None Seen /LPF (None Seen); CRYSTALS None Seen /LPF (None Seen); SQUAMOUS 4-10 Moderate /LPF (0-3); URINE RBC 3-10 Few /HPF (0-2); URINE WBC >25 Many /HPF (0-5)
[2018-01-11 08:04] LABS: BACTERIA >30 Many /HPF (None Seen)
[2018-01-11 08:15] VITALS: BP 107/60
[2018-01-11 16:30] VITALS: BP 111/69
[2018-01-11 20:42] VITALS: BP 131/70
[2018-01-12 05:36] LABS: HEMATOCRIT 32.8 % (37.0-47.0); HEMOGLOBIN 11.2 gm/dL (12.0-15.0); MCH 28.1 pg (26.0-34.0); MCV 82.6 fL (80.0-100.0); RBC 3.97 mil/uL (4.20-5.00); WBC 6.3 thou/uL (4.0-11.0)
[2018-01-12 05:41] VITALS: BP 142/80
[2018-01-12 05:45] LABS: CALCIUM 8.6 mg/dL (8.5-10.1); CREATININE 1.3 mg/dL (0.6-1.0); MAGNESIUM 1.8 mg/dL (1.8-2.4); POTASSIUM 3.8 mmol/L (3.5-5.1)
[2018-01-12 07:28] VITALS: BP 147/91
[2018-01-12 15:38] VITALS: BP 132/72
[2018-01-12 20:00] VITALS: BP 117/68
[2018-01-13 04:39] VITALS: BP 130/71
[2018-01-13 07:45] VITALS: BP 140/83
[2018-01-13 07:45] LABS: HEMATOCRIT 35.5 % (37.0-47.0); MCH 28.2 pg (26.0-34.0); MCHC 33.7 g/dL (28.0-37.0); MCV 83.4 fL (80.0-100.0); RBC 4.25 mil/uL (4.20-5.00); RDW 13.8 % (10.5-14.5); WBC 6.7 thou/uL (4.0-11.0)
[2018-01-13 08:03] LABS: CALCIUM 8.8 mg/dL (8.5-10.1); CREATININE 1.2 mg/dL (0.6-1.0); MAGNESIUM 1.7 mg/dL (1.8-2.4); POTASSIUM 3.9 mmol/L (3.5-5.1)
[2018-01-13 09:00] VITALS: BP 140/83
[2018-01-13 16:00] VITALS: BP 132/79
[2018-01-13 20:00] VITALS: BP 149/82
[2018-01-14 03:30] VITALS: BP 137/82
[2018-01-14 05:50] LABS: HEMATOCRIT 34.5 % (37.0-47.0); HEMOGLOBIN 11.8 gm/dL (12.0-15.0); MCH 28.2 pg (26.0-34.0); MCHC 34.2 g/dL (28.0-37.0); MCV 82.7 fL (80.0-100.0); RBC 4.18 mil/uL (4.20-5.00); RDW 13.9 % (10.5-14.5); WBC 7.1 thou/uL (4.0-11.0)
[2018-01-14 06:02] LABS: CREATININE 1.1 mg/dL (0.6-1.0); MAGNESIUM 1.7 mg/dL (1.8-2.4)
[2018-01-14 07:47] VITALS: BP 172/72
[2018-01-14 08:04] VITALS: BP 150/85
[2018-01-14 09:00] VITALS: BP 150/85
[2018-01-14 16:00] VITALS: BP 141/79
[2018-01-14 20:43] VITALS: BP 135/65
[2018-01-15 04:14] VITALS: BP 140/69
[2018-01-15 07:10] VITALS: BP 132/76
[2018-01-15 10:50] VITALS: BP 133/73
[2018-01-15 16:21] VITALS: BP 122/64
[2018-01-15 20:00] VITALS: BP 145/89
[2018-01-16 03:39] VITALS: BP 119/69
[2018-01-16 05:30] LABS: HEMATOCRIT 30.2 % (37.0-47.0); HEMOGLOBIN 10.2 gm/dL (12.0-15.0); MCH 27.9 pg (26.0-34.0); MCHC 33.8 g/dL (28.0-37.0); MCV 82.4 fL (80.0-100.0); RBC 3.67 mil/uL (4.20-5.00); RDW 13.5 % (10.5-14.5); WBC 8.5 thou/uL (4.0-11.0)
[2018-01-16 05:35] LABS: CALCIUM 8.5 mg/dL (8.5-10.1); CREATININE 1.2 mg/dL (0.6-1.0)
[2018-01-16 08:00] VITALS: BP 117/69
[2018-01-16 16:00] VITALS: BP 113/67
[2018-01-16 20:09] VITALS: BP 139/80
[2018-01-17 03:02] VITALS: BP 98/61
[2018-01-17 07:53] VITALS: BP 124/79
[2018-01-17] MEDS ORDERED: DAKIN'S473 M2 IRRIG (09:11)
[2018-01-17] MEDS ORDERED: SSD CREAM 1% 5050 GM TOP (09:11)
[2018-01-17 15:39] VITALS: BP 98/63
[2018-01-17 19:19] VITALS: BP 128/74
[2018-01-18 03:47] VITALS: BP 132/69
[2018-01-18 09:06] VITALS: BP 105/59
[2018-01-18 14:13] VITALS: BP 94/55
[2018-01-18 15:45] VITALS: BP 139/62
== END 2018-01-18 16:42 | DRG 579 ==
LOC: ER 15:57 → 4E 18:11 → EROBS 18:11 → 4E 19:14
PROVIDERS: Emergency Medicine; Internal Medicine; Surgery
PROC: 0KBP0ZZ Excision of Left Hip Muscle, Open Approach (ICD-10-PCS; principal; 2018-01-15)
PROC: 0KBN0ZZ Excision of Right Hip Muscle, Open Approach (ICD-10-PCS; principal; 2018-01-15)
PROC: 0D1L0Z4 Bypass Transverse Colon to Cutaneous, Open Approach (ICD-10-PCS; principal; 2018-01-15)
DX: L89.153 Pressure ulcer of sacral region, stage 3 (principal); G82.20 Paraplegia, unspecified; I50.30 Unspecified diastolic (congestive) heart failure; L03.312 Cellulitis of back [any part except buttock and flank]; E78.5 Hyperlipidemia, unspecified; M19.90 Unspecified osteoarthritis, unspecified site; M06.9 Rheumatoid arthritis, unspecified; R15.9 Full incontinence of feces; G89.4 Chronic pain syndrome; F32.9 Major depressive disorder, single episode, unspecified; K21.9 Gastro-esophageal reflux disease without esophagitis; N31.9 Neuromuscular dysfunction of bladder, unspecified; I25.10 Atherosclerotic heart disease of native coronary artery without angina pectoris; E66.9 Obesity, unspecified; Z68.29 Body mass index [BMI] 29.0-29.9, adult; Z87.11 Personal history of peptic ulcer disease; Z95.5 Presence of coronary angioplasty implant and graft; Z86.711 Personal history of pulmonary embolism; Z87.81 Personal history of (healed) traumatic fracture; Z91.81 History of falling; Z98.891 History of uterine scar from previous surgery; Z79.899 Other long term (current) drug therapy; Z88.0 Allergy status to penicillin; Z88.1 Allergy status to other antibiotic agents
CPT/HCPCS: 10084; 50010; 50101; 50386; 50403; 56524; 56525; 62110; 62900; 70005

== ENCOUNTER → 2018-01-10 | Outpatient (CLI) | payer OTHER ==
[~2018-01-10] MED LIST changes: +NITROSTAT0.4 M1 SUBLING
== END ==
LOC: HYPER 06:49
DX: L89.153 Pressure ulcer of sacral region, stage 3 (principal); I21.9 Acute myocardial infarction, unspecified; R32 Unspecified urinary incontinence; I10 Essential (primary) hypertension; I25.2 Old myocardial infarction

== ENCOUNTER 2018-02-10 13:07 | Emergency (ER) | payer OTHER ==
[~2018-02-10] VITALS: Ht 162.6 cm; Wt 77.1 kg
[~2018-02-10 13:07] MED LIST changes: +DAKIN'S473 M2 IRRIG; +NITROSTAT0.4 M1 SUBLING; +SSD CREAM 1% 5050 GM TOP
[2018-02-10 13:56] LABS: ABSOLUTE NEUTROPHILS 6.4 thou/uL (1.4-8.2); BASOPHILS 0.6 % (0.0-2.0); HEMATOCRIT 34.7 % (37.0-47.0); HEMOGLOBIN 11.7 gm/dL (12.0-15.0); LYMPHOCYTES 22.1 % (24.0-44.0); MCH 28.1 pg (26.0-34.0); MCHC 33.6 g/dL (28.0-37.0); MCV 83.5 fL (80.0-100.0); MONOCYTES 5.7 % (1.0-8.0); PLATELET COUNT 402 thou/uL (150-400); POLYS 69.6 % (36.0-66.0); RBC 4.16 mil/uL (4.20-5.00); RDW 14.3 % (10.5-14.5); WBC 9.1 thou/uL (4.0-11.0)
[2018-02-10 13:59] LABS: CALCIUM 9.7 mg/dL (8.5-10.1); POTASSIUM 3.3 mmol/L (3.5-5.1)
[2018-02-10 14:27] LABS: URINE CLARITY TURBID; URINE COLOR YELLOW; URINE PROTEIN (DIPSTICK) 3+ (Negative); URINE SPECIFIC GRAVITY 1.015 (1.005-1.035)
[2018-02-10 14:28] LABS: URINE BILIRUBIN NEGATIVE (Negative); URINE BLOOD 3+ (Negative); URINE GLUCOSE-RANDOM* NEGATIVE (Negative); URINE KETONES NEGATIVE (Negative); URINE LEUKOCYTES-REFLEX 3+ (Negative); URINE NITRITE-REFLEX NEGATIVE (Negative); URINE UROBILINOGEN 0.2 E.U./dl (0.2-1.0)
[2018-02-10 14:31] LABS: CASTS None Seen /LPF (None Seen); CRYSTALS None Seen /LPF (None Seen); SQUAMOUS None Seen /LPF (0-3); URINE WBC-REFLEX >25 Many /HPF (0-5)
[2018-02-10 14:32] LABS: MUCUS >6 Heavy strn/LPF (None Seen)
[2018-02-10 14:33] LABS: BACTERIA-REFLEX >30 Many /HPF (None Seen); URINE RBC 3-10 Few /HPF (0-2); WBC CLUMPS Many (None Seen)
[2018-02-10 18:23] VITALS: BP 99/46
== END 2018-02-10 18:25 | disposition home or self-care (01) ==
LOC: ER 13:07
PROVIDERS: Emergency Medicine
DX: S31.000A Unspecified open wound of lower back and pelvis without penetration into retroperitoneum, initial encounter (principal); I10 Essential (primary) hypertension; M19.90 Unspecified osteoarthritis, unspecified site; E66.9 Obesity, unspecified; Z68.29 Body mass index [BMI] 29.0-29.9, adult; I25.10 Atherosclerotic heart disease of native coronary artery without angina pectoris; E78.5 Hyperlipidemia, unspecified; Z88.0 Allergy status to penicillin; Z88.1 Allergy status to other antibiotic agents; X58.XXXA Exposure to other specified factors, initial encounter; Y93.89 Activity, other specified; Y92.89 Other specified places as the place of occurrence of the external cause; Y99.8 Other external cause status

== ENCOUNTER 2018-04-18 22:52 | Inpatient (IN) | payer OTHER ==
[~2018-04-18] VITALS: Ht 162.6 cm; Wt 77.1 kg
--- NOTE | ~2018-04-18 | O ---
[facility] [place] [address] OPERATIVE REPORT Name: NATALI UNGER Room #: 359-P [facility] IN M.R.#: [id number] Admission: 04/19/18 Attend Phys: Elsi Briceño Discharge: 04/22/18 Date of : 51 Report #: [id number] THIS REPORT FOR: //name// CC: Elsi Pendleton DATE OF SERVICE: 04/20/2018 PREOPERATIVE DIAGNOSIS: Diverting loop transverse colostomy with prolapse. POSTOPERATIVE DIAGNOSES: 1. Diverting loop transverse colostomy with prolapse. 2. Parastomal hernia. PROCEDURES PERFORMED: 1. Colostomy revision to an end proximal transverse colostomy. 2. Suture repair of parastomal hernia. SURGEON: Tejas Nowak M.D. SEWER INSPECTOR: NILS Ivan ANESTHESIA: General endotracheal anesthesia. ESTIMATED BLOOD LOSS: Minimal (less than 10 mL). COMPLICATIONS: None appreciated. SPECIMENS: Prolapsed colostomy to pathology. INDICATIONS: The patient is a 67-year-old female who developed prolapsing of her transverse colostomy with a dusky bowel requiring resection and conversion to an end colostomy as well as suture repair of intraoperatively encountered parastomal hernia. DESCRIPTION OF PROCEDURE: After explaining the risks, benefits and alternatives of the procedure with the patient in detail in the preoperative holding area and obtaining written consent, the patient was brought to the operating room and placed supine on the operating room table. After conducting a thorough timeout procedure, verifying correct patient and procedure, the patient was given general endotracheal anesthesia. Once adequate anesthesia was obtained, her SCDs were hooked up to pneumatic compression device and she was given a preoperative dose of antibiotics in line with the SCIP protocol. The patient's abdomen was prepped and draped in standard surgical sterile fashion. Electrocautery was used to take down the mucocutaneous juncture circumferentially around the prolapsed bowel. This allowed me to elevate the [facility] [address] [place] [address] OPERATIVE REPORT Name: NATALI UNGER Room #: 359-P [facility] IN ..#: [id number] Admission: 04/19/18 Attend Phys: Elsi Briceño Discharge: 04/22/18 Date of : 51 Report #: [id number] entire bowel into the depths of the wound where I transected the prolapsed segment on either side using firings of the linear stapler 75 mm in length and utilizing blue loads. The EnSeal X1 advanced energy device was used to transect the mesentery for hemostasis. A prolapsed colostomy was passed off the field as specimen. The distal staple line and the defunctionalized left colon were placed back into the abdomen and a [place] clamp was placed on the proximal transverse colon staple line for control. We encountered a sizable parastomal hernia and as such, this was suture repaired using #1 PDS in standard running fashion to bring the fascial opening to where it was snug to the colon. 4-0 Monocryl was used in standard running subcuticular fashion for the excess skin opening and Dermabond glue was applied to the skin wound. I now mature the colostomy after removing the staple line with curved Calle scissors by placing imbricating sutures at the 12, 3, 6, and 9 o'clock positions using 3-0 Vicryl in standard [place] fashion. The resultant four quadrants were anchored at the mucocutaneous juncture using short runs of 3-0 Vicryl in standard fashion as well. Digital finger intubation showed that it was patent to a subfascial level. A sterile colostomy appliance was then applied. At the end of the procedure, all instruments, needle and sponge counts were correct. The patient tolerated the procedure without incident, was awakened in the operating room, transitioned to the recovery room in stable condition with no apparent complications. <ELECTRONICALLY SIGNED> By: Tjeas Nowak MD, FACS 05/15/18 0858 1212 1232 Tejas Nowak MD, FACS /nt
--- NOTE | ~2018-04-18 | HC ---
[facility] [place] [address] CONSULTATION Name: NATALI UNGER Room #: 359-P [facility] IN ..#: [id number] Admission: 04/19/18 Attend Phys: Elsi Briceño Discharge: 04/22/18 Date of : 51 Report #: [id number] THIS REPORT FOR: //name// CC: Elsi Pendleton DATE OF SERVICE: 04/19/2018 REASON FOR CONSULTATION: Sacral and bilateral heel ulcers. HISTORY OF PRESENT ILLNESS: This is a 67-year-old female patient with whom I am familiar from multiple admissions to [facility]. She is admitted with a prolapsed colostomy. She has been having increasing prolapse and some question of necrosis and is admitted for surgical evaluation and treatment. She denies any other pain or discomfort at this time. ALLERGIES: PENICILLIN, STATINS AND ERYTHROMYCIN. MEDICATIONS: Include trazodone, cephalexin, sodium hypochlorite, silver sulfadiazine, metoprolol, cyclobenzaprine, tamsulosin, lidocaine, pantoprazole, quetiapine, nitroglycerin. PAST MEDICAL HISTORY: Positive for coronary artery disease, hypertension, hyperlipidemia, possible polymyalgia rhuematica and history of paraplegia. REVIEW OF SYSTEMS: CONSTITUTIONAL: The patient denies fever, chills, weight loss. NEUROLOGICAL: The patient has paraplegia. ENT: The patient denies earache, nasal drainage or sore throat. CARDIOVASCULAR: The patient denies chest pain, palpitations, diaphoresis. PULMONARY: The patient denies cough or shortness of breath. GASTROINTESTINAL: The patient does notice the prolapse of her colostomy. ORTHOPEDIC: The patient is aware of ulcerations to the sacrum and both heels. Other systems and a 14-point review of systems are negative. PHYSICAL EXAMINATION: VITAL SIGNS: At this time include pulse 96, respiration of 18, blood pressure 105/64, temperature 100. GENERAL: This is a chronically ill-appearing female patient who appears to be in minimal distress. HEENT: Head normocephalic. Nose and throat are clear. NECK: Supple. LUNGS: Clear. HEART: Regular. ABDOMEN: Soft. Bowel sounds present. There is a colostomy in the left lower abdomen with moderate prolapse and some perhaps mucosal necrosis. There is no [address] [address] CONSULTATION Name: UTEKODINATALI Joel Room #: 359-P [facility] IN .R.#: [id number] Admission: 04/19/18 Attend Phys: Elsi Briceño Discharge: 04/22/18 Date of : 51 Report #: [id number] erythema or evidence of infection. Pelvic region demonstrates a stage 3 pressure ulceration to the sacrum, which is relatively clean and granulating. Slight amount of fibrin on the surface. Both heels show stage 3 ulcerations bilaterally. These are lint cleaner and improved since the last time I saw her. CLINICAL IMPRESSION: 1. Stage 3 pressure ulcer of both heels. 2. Paraplegia. 3. Status post diverting colostomy with evidence of prolapse. RECOMMENDATIONS: At this point in time, we will recommend silver alginate and a bordered foam to the sacral ulcers as well as both heel ulcers. She will need Prevalon boots for both lower extremities, low air loss mattress, q. 2 hour turning and positioning, aggressive nutritional support. She will need surgical consultation for correction of the prolapsed colostomy. All questions have been answered. I appreciate being asked to see her in consultation. <ELECTRONICALLY SIGNED> By: Delano Castaneda MD 04/30/18 1252 [id number] Delano Castaneda MD /nt
--- NOTE | ~2018-04-18 | PATH ---
[facility] [address] [place] [address] PATHOLOGY RPT PROCEDURE Name: NATALI UNGER Room #: 359-P [facility] IN M.R.#: [id number] Admission: 04/19/18 Date of : 52 Discharge: 04/22/18 Report #: [id number] Path Case #: [id number] [facility] Accession Number: [id number] . 01 Material submitted: . COLOSTOMY PROLAPSE . 01 Clinician provided ICD-10: K94.03 . 01 Clinical history: . Colostomy prolapse . 02 Diagnosis: Colostomy, removal: - Ulceration associated with acute inflammation of the large intestinal mucosa as well as showing ischemic changes. - Margin of bowel mucosa viable. - 13.5 cm of omentum showing chronic inflammation, fat necrosis and reactive changes. (IUV:pit 04/23/2018) QTP/04/24/2018 . 02 Electronically signed: . Jasmyn Flower MD, Pathologist NPI- [id number] . 01 Gross description: . The specimen is received in formalin, labeled "Ping Unger, colostomy". Received is a segment of light brown mucosa with overlying exudate measuring 8.6 x 7.5 x 5.6 cm in greatest dimensions. At the base of the mucosa, there is a slight amount of pale mcintosh skin present. The opposite aspect displays a moderate amount of yellow-mcintosh omentum measuring 13.5 x 13.0 x 4.5 cm, which surrounds a segment of bowel with a stapled margin, which goes up into the aforementioned mucosa, measuring 7.8 cm in length by 2.2 cm in diameter. Opening the segment of bowel reveals pink-mcintosh, smooth mucosa, which opens at the opposite aspect, suggestive that the exposed mucosa is a prolapsed stoma. No distinct nodules or lesions are noted grossly. The specimen is submitted representatively as follows: . A1 patient care representative sections through opened aspect of exposed mucosa A2 patient care representative sections of exposed mucosa with overlying exudate A3 patient care representative sections of bowel to include shefali margin. . Gross photographs are taken. (CAA; 04/22/2018) . [address] [address] PATHOLOGY RPT PROCEDURE Name: NATALI UNGER Room #: 359-P DIS IN M.R.#: [id number] Admission: 04/19/18 Date of : 52 Discharge: 04/22/18 Report #: [id number] Path Case #: [id number] After initial microscopic examination, patient care representative sections of the omentum are submitted in cassette A4. (CAA; 04/23/2018) QAC/QAC . 02 Pathologist provided ICD-10: K94.03, K65.4 . 02 CPT . 894205, 766182 Specimen Comment: A courtesy copy of this report has been sent to Specimen Comment: [phone], . Specimen Comment: Report sent to / DR TRAN Performed at: [address], [place] [id number] MD Ney Zavala MD Phone: [phone] Performed at: [address] [id number] MD Jasmyn Flower MD Phone: [phone]
[~2018-04-18 22:52] MED LIST changes: +BENZONATATE100 MG PO; +CEFDINIR300 MG PO; +COLACE 100 MG100 MG PO; +KEFLEX500 M1 PO; +TRAZODONE HCL50 MG PO
[2018-04-18 22:54] VITALS: BP 129/72
[2018-04-18 23:27] LABS: ABSOLUTE NEUTROPHILS 9.3 thou/uL (1.4-8.2); BASOPHILS 0.9 % (0.0-2.0); EOSINOPHILS 1.1 % (0.0-3.0); HEMATOCRIT 36.8 % (37.0-47.0); HEMOGLOBIN 12.4 gm/dL (12.0-15.0); LYMPHOCYTES 22.3 % (24.0-44.0); MCH 27.5 pg (26.0-34.0); MCHC 33.6 g/dL (28.0-37.0); MCV 81.8 fL (80.0-100.0); MONOCYTES 8.8 % (1.0-8.0); PLATELET COUNT 423 thou/uL (150-400); POLYS 66.9 % (36.0-66.0); RDW 16.3 % (10.5-14.5); WBC 13.9 thou/uL (4.0-11.0)
[2018-04-18 23:31] LABS: CALCIUM 9.9 mg/dL (8.5-10.1); POTASSIUM 3.6 mmol/L (3.5-5.1)
[2018-04-18 23:37] LABS: ALBUMIN 3.1 g/dL (3.4-5.0); TOTAL BILIRUBIN 0.5 mg/dL (<0.1-1.0); TOTAL PROTEIN 8.1 g/dL (6.4-8.2)
[2018-04-18 23:39] LABS: APTT 27.6 Seconds (24.5-32.8); PROTIME 9.9 Seconds (9.3-11.4)
[2018-04-18 23:51] LABS: URINE BILIRUBIN NEGATIVE (Negative); URINE BLOOD 3+ (Negative); URINE CLARITY CLOUDY; URINE COLOR YELLOW; URINE GLUCOSE-RANDOM* NEGATIVE (Negative); URINE KETONES NEGATIVE (Negative); URINE LEUKOCYTES-REFLEX 3+ (Negative); URINE NITRITE-REFLEX NEGATIVE (Negative); URINE PROTEIN (DIPSTICK) 1+ (Negative); URINE UROBILINOGEN 0.2 E.U./dl (0.2-1.0)
[2018-04-19] VITALS (7 sets, daily range): BP systolic 98–128; BP diastolic 50–77
[2018-04-19 00:03] LABS: BACTERIA-REFLEX 1-9 Few /HPF (None Seen); CASTS None Seen /LPF (None Seen); MUCUS 4-6 Moderate strn/LPF (None Seen); SQUAMOUS None Seen /LPF (0-3)
[2018-04-19 00:04] LABS: AMORPHOUS PHOSPHATES Many /LPF (None Seen); TRIPLE PHOSPHATE CRYSTALS 0-3 Few /LPF (None Seen); URINE RBC 3-10 Few /HPF (0-2); WBC CLUMPS Packed (None Seen)
[2018-04-20] VITALS (7 sets, daily range): BP systolic 102–140; BP diastolic 51–101
[2018-04-20 06:09] LABS: HEMATOCRIT 31.8 % (37.0-47.0); HEMOGLOBIN 10.5 gm/dL (12.0-15.0); MCH 27.3 pg (26.0-34.0); MCHC 33.1 g/dL (28.0-37.0); MCV 82.5 fL (80.0-100.0); RBC 3.85 mil/uL (4.20-5.00); RDW 16.2 % (10.5-14.5); WBC 8.8 thou/uL (4.0-11.0)
[2018-04-20 06:24] LABS: CALCIUM 9.4 mg/dL (8.5-10.1); CREATININE 0.9 mg/dL (0.6-1.0); POTASSIUM 3.6 mmol/L (3.5-5.1)
[2018-04-21 03:35] VITALS: BP 101/61
[2018-04-21 06:58] LABS: HEMATOCRIT 29.3 % (37.0-47.0); HEMOGLOBIN 10.1 gm/dL (12.0-15.0); MCH 28.3 pg (26.0-34.0); MCHC 34.4 g/dL (28.0-37.0); MCV 82.2 fL (80.0-100.0); RBC 3.57 mil/uL (4.20-5.00); RDW 15.7 % (10.5-14.5); WBC 9.7 thou/uL (4.0-11.0)
[2018-04-21 07:33] VITALS: BP 107/61
[2018-04-21 16:34] VITALS: BP 114/66
[2018-04-21 19:03] VITALS: BP 105/68
[2018-04-22 03:32] VITALS: BP 119/65
[2018-04-22 07:30] VITALS: BP 124/72
[2018-04-22] MEDS ORDERED: CEFUROXIME250 MG PO (09:32)
[2018-04-22] MEDS ORDERED: LEVAQUIN 500 M500 M2 PO (09:35)
[2018-04-22 12:37] VITALS: BP 124/72
[2018-04-22 14:13] VITALS: BP 124/72
[2018-04-22 16:59] VITALS: BP 124/72
== END 2018-04-22 17:07 | disposition home health service (06) | DRG 853 ==
LOC: ER 22:52 → EROBS 04-19 00:26 → 3W 04-19 00:26
PROVIDERS: Hospitalist; Physician Assistant; Surgery
PROC: 0WQF0ZZ Repair Abdominal Wall, Open Approach (ICD-10-PCS; principal; 2018-04-20)
PROC: 0DBE0ZZ Excision of Large Intestine, Open Approach (ICD-10-PCS; principal; 2018-04-20)
DX: A41.9 Sepsis, unspecified organism (principal); L89.153 Pressure ulcer of sacral region, stage 3; L89.623 Pressure ulcer of left heel, stage 3; L89.613 Pressure ulcer of right heel, stage 3; G82.50 Quadriplegia, unspecified; N39.0 Urinary tract infection, site not specified; I50.32 Chronic diastolic (congestive) heart failure; K94.09 Other complications of colostomy; I11.0 Hypertensive heart disease with heart failure; M19.90 Unspecified osteoarthritis, unspecified site; E78.5 Hyperlipidemia, unspecified; E66.9 Obesity, unspecified; Y83.8 Other surgical procedures as the cause of abnormal reaction of the patient, or of later complication, without mention of misadventure at the time of the procedure; I25.10 Atherosclerotic heart disease of native coronary artery without angina pectoris; M35.3 Polymyalgia rheumatica; Z98.891 History of uterine scar from previous surgery; Z79.01 Long term (current) use of anticoagulants; Z88.0 Allergy status to penicillin; Z88.1 Allergy status to other antibiotic agents; Z86.711 Personal history of pulmonary embolism; Z88.8 Allergy status to other drugs, medicaments and biological substances; Z86.718 Personal history of other venous thrombosis and embolism; Z95.5 Presence of coronary angioplasty implant and graft; Z68.29 Body mass index [BMI] 29.0-29.9, adult; Y92.89 Other specified places as the place of occurrence of the external cause
CPT/HCPCS: 10879; 50093; 50101; 50386; 51708; 51712; 54118; 56524; 56525; 56526; 57092; 62110; 62900; 70005

== ENCOUNTER 2018-05-07 12:18 | Inpatient (IN) | payer OTHER ==
[~2018-05-07] VITALS: Ht 162.6 cm; Wt 81.8 kg
--- NOTE | ~2018-05-07 | HC ---
[facility] [place] [address] CONSULTATION Name: NATALI UNGER Room #: 422-P [facility] IN M.R.#: [id number] Admission: 05/07/18 Attend Phys: Caleb Mart MD Discharge: Date of : 52 Report #: [id number] THIS REPORT FOR: //name// CC: Caleb Peters MD DATE OF SERVICE: 05/08/2018 ATTENDING PHYSICIAN: Dr. Caleb Mart. HISTORY OF PRESENT ILLNESS: A 67-year-old white woman with neurologic dysfunction lower extremities and decubitus ulceration coccygeal area and both feet, admitted [facility] the [facility] through the Emergency Room. The patient resided in assisted living facility, pretty happy with the care she is receiving there. PAST MEDICAL HISTORY: , dyslipidemia, hypertension, osteoarthritis, obesity, coronary artery disease, angioplasty, exploratory laparotomy for perforated gastric ulcer, hernia repair, thoracic spine hemorrhage requiring surgery with lower extremity paraplegia. Stage 3-4 sacrococcygeal decubitus. Diverting colostomy. Bilateral ankle wounds. DRUG ALLERGIES: PENICILLIN, STATINS, ERYTHROMYCIN. MEDICATIONS: The patient is on treatment with meropenem 1 gram IV every 8 hours, metoprolol, tamsulosin, pantoprazole, Silvadene topical p.r.n., ondansetron p.r.n., fentanyl p.r.n., acetaminophen, vancomycin 1 gram IV daily. REVIEW OF SYSTEMS: As above and see H and P. PHYSICAL EXAMINATION: GENERAL: A well-developed, nontoxic-looking woman. VITAL SIGNS: Temperature 97.5, pulse 95, respirations 18, BP 154/92, height 5 feet 4 inches, weight 180 pounds. HEENMT: Within range. NECK: Supple, no thyromegaly. LUNGS: Clear to auscultation. BREASTS: Deferred. HEART: S1, S2, no gallop. ABDOMEN: Colostomy in place, soft. No masses or megaly. EXTREMITIES: Revealed paraplegia. Decubitus both heels, stage 2-3. No active signs of infection. Stage 2 burn right thigh. BACK: Revealed stage 3-4 coccygeal decubitus. No active signs of infection. NEUROLOGIC: Paraplegia. [address] [address] CONSULTATION Name: NATALI UNGER Room #: 422-P [facility] IN ..#: [id number] Admission: 05/07/18 Attend Phys: Caleb Mart MD Discharge: Date of : 52 Report #: [id number] LABORATORY DATA: Sodium 141, potassium 3.9, BUN 13, creatinine 1, glucose 110, albumin 3 g/dL. WBC 7.7, hemoglobin 10.4, platelets 396,000. Blood cultures were obtained yesterday in patient who is not toxic patient, suspect contaminant or remain negative. ASSESSMENT: 1. Stage 3-4 coccygeal decubitus. 2. Bilateral ankle decubitus, stage 2-3. 3. Paraplegia. 4. Hypoalbuminemia. 5. Anemia. 6. Diverting colostomy. SUGGESTIONS: Recommend continue local wound care. Offloading. Improve nutrition. Continue combination with vancomycin and meropenem. Obtain ESR, CRP. Dr. Mart, thank you for requesting my suggestions. <ELECTRONICALLY SIGNED> By: Dilip Keyes MD 05/09/18 0952 1027 0542 Dilip Keyes MD /nt
--- NOTE | ~2018-05-07 | P ---
[facility] [place] [address] PROCEDURE REPORT Name: NATALI UNGER Room #: 422-P ADM IN M.R.#: [id number] Admission: 05/07/18 Attend Phys: Caleb Mart MD Discharge: Date of : 52 Report #: [id number] THIS REPORT FOR: //name// CC: Caleb Pendleton DATE OF SERVICE: 05/08/2018 CHIEF COMPLAINT: Ulceration to the left heel and sacrum. PROCEDURE PERFORMED: Surgical excisional debridement to left heel and sacrum. INDICATION: The patient was seen in room with the wound care team. Evaluation of wounds demonstrated both areas appeared to have a moderate slough and some necrotic tissue. The patient is agreeable to bedside surgical debridement and verbally did consent. A timeout was taken and correct patient, correct site, and correct procedure were identified and confirmed with nursing staff and the patient. The patient's left heel ulcer pre-debridement measured 2.0 x 3.3 x 0.1 cm, post-debridement 2.0 x 3.3 x 0.6 cm. Sacral ulceration stage 4 measured 2.6 x 2.8 x 0.8 cm and post-debridement is 2.6 x 2.9 x 1.6 cm. PROCEDURE DESCRIPTION: Both ulcerations were prepped and draped in usual sterile fashion. A curette was then used to sharply debride through some skin and subcutaneous tissue through the fat layer down to healthy clean bleeding tissue. Hemostasis was controlled with direct pressure. Estimated blood loss from both sites combined approximately 5 mL. The patient tolerated the procedure well with zero pain during or after the procedure. <ELECTRONICALLY SIGNED> By: Delano Castaneda MD 05/10/18 0828 1721 0710 Delano Castaneda MD /nt
[2018-05-07 12:20] VITALS: BP 118/69
[2018-05-07 12:59] LABS: ABSOLUTE NEUTROPHILS 5.2 thou/uL (1.4-8.2); BASOPHILS 1.1 % (0.0-2.0); HEMATOCRIT 34.5 % (37.0-47.0); HEMOGLOBIN 11.3 gm/dL (12.0-15.0); LYMPHOCYTES 33.6 % (24.0-44.0); MCHC 32.9 g/dL (28.0-37.0); MCV 82.3 fL (80.0-100.0); MONOCYTES 5.3 % (1.0-8.0); PLATELET COUNT 465 thou/uL (150-400); RBC 4.19 mil/uL (4.20-5.00); RDW 16.5 % (10.5-14.5); WBC 9.2 thou/uL (4.0-11.0)
[2018-05-07 13:14] LABS: CREATININE 0.8 mg/dL (0.6-1.0); POTASSIUM 3.9 mmol/L (3.5-5.1)
[2018-05-07 13:18] LABS: TOTAL BILIRUBIN 0.3 mg/dL (<0.1-1.0); TOTAL PROTEIN 7.7 g/dL (6.4-8.2)
[2018-05-07 13:50] VITALS: BP 144/69
[2018-05-07 14:44] VITALS: BP 123/77
[2018-05-07 19:45] VITALS: BP 111/46
[2018-05-08 04:00] VITALS: BP 131/72
[2018-05-08 04:58] LABS: HEMATOCRIT 32.6 % (37.0-47.0); HEMOGLOBIN 10.4 gm/dL (12.0-15.0); MCH 26.6 pg (26.0-34.0); MCV 83.2 fL (80.0-100.0); RBC 3.92 mil/uL (4.20-5.00); RDW 16.1 % (10.5-14.5); WBC 7.7 thou/uL (4.0-11.0)
[2018-05-08 04:59] LABS: CALCIUM 9.1 mg/dL (8.5-10.1); POTASSIUM 3.9 mmol/L (3.5-5.1)
[2018-05-08 07:38] VITALS: BP 154/92
[2018-05-08 16:09] VITALS: BP 154/92
[2018-05-08 16:31] VITALS: BP 105/57
[2018-05-08 19:44] VITALS: BP 101/62
[2018-05-09 04:37] VITALS: BP 128/69
[2018-05-09 12:06] VITALS: BP 119/67
[2018-05-09 12:15] VITALS: BP 154/92
[2018-05-09 16:45] VITALS: BP 121/75
[2018-05-09 19:16] VITALS: BP 113/83
[2018-05-10 04:30] VITALS: BP 142/74
[2018-05-10 07:42] VITALS: BP 117/65
[2018-05-10 13:11] VITALS: BP 154/92
[2018-05-10 14:00] VITALS: BP 154/92
[2018-05-10 14:59] VITALS: BP 154/92
== END 2018-05-10 15:50 | disposition home health service (06) | DRG 853 ==
LOC: ER 12:18 → EROBS 13:18 → 4E 13:18
PROVIDERS: Emergency Medicine; Hospitalist
PROC: 0JB70ZZ Excision of Back Subcutaneous Tissue and Fascia, Open Approach (ICD-10-PCS; principal; 2018-05-08)
PROC: 0JBP0ZZ Excision of Left Lower Leg Subcutaneous Tissue and Fascia, Open Approach (ICD-10-PCS; principal; 2018-05-08)
DX: A41.9 Sepsis, unspecified organism (principal); L89.154 Pressure ulcer of sacral region, stage 4; L89.623 Pressure ulcer of left heel, stage 3; L89.613 Pressure ulcer of right heel, stage 3; L89.523 Pressure ulcer of left ankle, stage 3; L89.513 Pressure ulcer of right ankle, stage 3; G82.20 Paraplegia, unspecified; I50.30 Unspecified diastolic (congestive) heart failure; E78.5 Hyperlipidemia, unspecified; I25.10 Atherosclerotic heart disease of native coronary artery without angina pectoris; D64.9 Anemia, unspecified; J32.8 Other chronic sinusitis; E66.9 Obesity, unspecified; M19.90 Unspecified osteoarthritis, unspecified site; I11.0 Hypertensive heart disease with heart failure; Z68.30 Body mass index [BMI] 30.0-30.9, adult; Z95.828 Presence of other vascular implants and grafts; Z86.718 Personal history of other venous thrombosis and embolism; Z86.711 Personal history of pulmonary embolism; Z93.3 Colostomy status; Z93.1 Gastrostomy status; Z88.1 Allergy status to other antibiotic agents; Z88.0 Allergy status to penicillin; Z88.8 Allergy status to other drugs, medicaments and biological substances; Z95.5 Presence of coronary angioplasty implant and graft
CPT/HCPCS: 10084

== ENCOUNTER → 2018-05-07 | Outpatient (CLI) | payer OTHER ==
[~2018-05-07] MED LIST changes: +CEFUROXIME250 MG PO; +LEVAQUIN 500 M500 M2 PO
== END ==
LOC: HYPER
DX: L89.153 Pressure ulcer of sacral region, stage 3 (principal); L89.623 Pressure ulcer of left heel, stage 3; L89.613 Pressure ulcer of right heel, stage 3; T24.012D Burn of unspecified degree of left thigh, subsequent encounter; T31.0 Burns involving less than 10% of body surface; I25.2 Old myocardial infarction; K21.9 Gastro-esophageal reflux disease without esophagitis; M62.81 Muscle weakness (generalized); X08.8XXD Exposure to other specified smoke, fire and flames, subsequent encounter

== ENCOUNTER 2018-06-03 15:38 | Inpatient (IN) | payer OTHER ==
[~2018-06-03] VITALS: Ht 162.6 cm; Wt 81.8 kg
--- NOTE | ~2018-06-03 | P ---
[facility] [place] [address] PROCEDURE REPORT Name: NATALI UNGER Room #: 417-I [facility] IN ..#: [id number] Admission: 06/03/18 Attend Phys: Puneet Bush MD Discharge: 06/05/18 Date of : 52 Report #: [id number] THIS REPORT FOR: //name// CC: Mara Bush DATE OF SERVICE: 06/05/2018 PREOPERATIVE DIAGNOSES: 1. Stage 3 sacral pressure ulcer. 2. Left heel stage 3 pressure ulcer. 3. Right heel stage 3 pressure ulcer. PROCEDURE: Sharp curette debridement of skin, subcutaneous tissue, sacral stage 3 pressure ulcer, right heel pressure ulcer and left heel pressure ulcer. TARE WORKER: Titi Allen M.D. ANESTHESIA: None. INDICATIONS: The patient is a 67-year-old woman who has signed informed consent for skin and subcutaneous debridement of stage 3 sacral ulcer and right and left heel ulcers. No anesthesia was needed. DESCRIPTION OF PROCEDURE: With the patient lying in the right lateral decubitus position, the patient's sacral ulcer was then dressed and exposed. She has a 2 x 2 x 1.5 cm deep stage 3 sacral pressure ulcer with no exposed bone. Surface had adherent exudate, nonviable tissue. Sharp curette was used to perform subcutaneous debridement down to healthy bleeding subcutaneous tissue. All nonviable tissue was removed down to and into healthy bleeding subcutaneous tissue. Hemostasis was achieved by pressure. Wound was packed with Aquacel Ag. Attention was turned to her heels. The patient has a small medial right heel stage 3 pressure ulcer measuring this 3 x 4 x 2 mm deep. Sharp curette debridement was done to healthy bleeding subcutaneous tissue with a curette. Attention was then turned to her left heel where she had a larger left medial stage 3 pressure ulcer measuring 1.3 x 0.8 x 0.3 cm deep. Sharp excisional curette debridement was done with a sharp curette down to and into healthy bleeding subcutaneous tissue. All nonviable tissue was removed down into healthy bleeding subcutaneous tissue. Pressure hemostasis was achieved. Aquacel Ag dressings were placed on both heels. The patient tolerated procedure well. <ELECTRONICALLY SIGNED> By: Titi Allen MD 06/05/18 2031 1038 1502 Titi Allen MD /nt
--- NOTE | ~2018-06-03 | HC ---
[facility] [place] [address] CONSULTATION Name: NATALI UNGER Room #: 417-I [facility] IN ..#: [id number] Admission: 06/03/18 Attend Phys: Puneet Bush MD Discharge: 06/05/18 Date of : 52 Report #: [id number] THIS REPORT FOR: //name// CC: Mara Bush DATE OF SERVICE: 06/04/2018 WOUND CARE CONSULTATION NOTE REASON FOR CONSULTATION: Pressure ulcers of the sacrum and bilateral feet in a paraplegic patient. HISTORY OF PRESENT ILLNESS: The patient is a 67-year-old woman, known to the wound care service, who had been seen for decubitus ulcer which appeared infected, had been placed on p.o. doxycycline for staph infection and sent home. Home health was seeing the patient. Home health felt that the wounds had excessive drainage, might be infected and directed the patient to the Emergency Room at [facility], where she is admitted to the hospital. Wound care was consulted and I am seeing her with my wound care nurse, Arina Mckee, on 06/04/2018. We are seeing the patient for decubitus ulcers of the sacrum and both feet. PAST MEDICAL HISTORY: Sarcopenia, paraplegia, paraparesis of both lower limbs, history of neurogenic bladder, debility and immobility. History of coronary artery disease, history of peptic ulcer disease and hypertension. REVIEW OF SYSTEMS: The patient has no specific complaints. She is afebrile. She is eating well. The patient is immobile due to her paraplegia. MEDICATIONS: Include Lidocaine patch, metoprolol, Silvadene, tamsulosin, pantoprazole, cyclobenzaprine, trazodone, nitroglycerin, polyethylene glycol, and acetaminophen. PHYSICAL EXAMINATION: GENERAL: Shows a chronically ill-appearing, pleasant, elderly woman appearing her stated age. HEENT: Mucous membranes are moist. NECK: Supple. LUNGS: Respirations are unlabored. ABDOMEN: Soft. EXTREMITIES: Examination of the patient's back shows an open sacral pressure ulcer measuring approximately 2 cm x 3 cm x 1 cm deep. This has some surface exudate. There does not appear to be any tunneling. There is no surrounding cellulitis. Examination of the lower extremities shows a small pressure ulcer of the right medial heel measuring 3 x 4 mm x 2 mm [place] [address] CONSULTATION Name: NATALI UNGER Room #: 417-I [facility] IN [facility].#: [id number] Admission: 06/03/18 Attend Phys: Puneet Bush MD Discharge: 06/05/18 Date of : 52 Report #: [id number] pressure ulcer of the left medial heel with some drainage measuring approximately 1.5 cm x 0.5 cm x 3 mm deep. All of these have some surface necrotic tissue, heavy exudate and require physical debridement. IMPRESSION: 1. Paraplegia. 2. Immobility. 3. Stage III pressure ulcer of the sacrum without exposed bone, requiring debridement. 4. Small pressure ulcer of the right medial heel, stage III. 5. Small pressure ulcer of the left medial heel, requiring debridement. PLAN: We will obtain patient's consent and return to the bedside for sharp curette debridement of the sacral decubitus ulcer and also the bilateral heel. We will dress with Aquacel dressings. In my opinion, these wounds do not require continued hospitalization nor continued antibiotics. After debridement, the patient will be discharged home with Aquacel silver dressings. Return to care of home health and return to be seen in the Wound Care Clinic at [facility]. <ELECTRONICALLY SIGNED> By: Titi Allen MD 06/07/18 1536 0654 [id number] Titi Allen MD /nt
[2018-06-03 15:43] VITALS: BP 131/72
[2018-06-03 16:50] LABS: ABSOLUTE NEUTROPHILS 5.9 thou/uL (1.4-8.2); BASOPHILS 0.9 % (0.0-2.0); EOSINOPHILS 1.6 % (0.0-3.0); HEMATOCRIT 35.8 % (37.0-47.0); LYMPHOCYTES 26.2 % (24.0-44.0); MCH 27.6 pg (26.0-34.0); MCHC 33.6 g/dL (28.0-37.0); MCV 82.1 fL (80.0-100.0); MONOCYTES 6.1 % (1.0-8.0); PLATELET COUNT 392 thou/uL (150-400); POLYS 65.2 % (36.0-66.0); RBC 4.36 mil/uL (4.20-5.00); RDW 15.5 % (10.5-14.5); WBC 9.1 thou/uL (4.0-11.0)
[2018-06-03 16:55] LABS: CALCIUM 10.6 mg/dL (8.5-10.1); CREATININE 0.9 mg/dL (0.6-1.0); POTASSIUM 3.5 mmol/L (3.5-5.1)
[2018-06-03 17:02] LABS: ALBUMIN 3.3 g/dL (3.4-5.0); TOTAL BILIRUBIN 0.4 mg/dL (<0.1-1.0); TOTAL PROTEIN 8.2 g/dL (6.4-8.2)
[2018-06-03 18:19] VITALS: BP 143/74
[2018-06-03 20:00] VITALS: BP 112/63
[2018-06-04 03:30] VITALS: BP 113/61
[2018-06-04 05:41] LABS: BASOPHILS 0.8 % (0.0-2.0); EOSINOPHILS 2.4 % (0.0-3.0); HEMATOCRIT 30.8 % (37.0-47.0); HEMOGLOBIN 10.4 gm/dL (12.0-15.0); LYMPHOCYTES 33.1 % (24.0-44.0); MCH 27.6 pg (26.0-34.0); MCHC 33.9 g/dL (28.0-37.0); MCV 81.5 fL (80.0-100.0); MONOCYTES 7.6 % (1.0-8.0); PLATELET COUNT 328 thou/uL (150-400); POLYS 56.1 % (36.0-66.0); RBC 3.78 mil/uL (4.20-5.00); RDW 15.3 % (10.5-14.5); WBC 7.2 thou/uL (4.0-11.0)
[2018-06-04 05:48] LABS: CALCIUM 9.7 mg/dL (8.5-10.1); CREATININE 0.8 mg/dL (0.6-1.0); MAGNESIUM 1.6 mg/dL (1.8-2.4); POTASSIUM 3.6 mmol/L (3.5-5.1)
[2018-06-04 09:32] VITALS: BP 101/58
[2018-06-04 16:26] VITALS: BP 117/72
[2018-06-04 19:11] VITALS: BP 114/57
[2018-06-05 04:37] VITALS: BP 132/73
[2018-06-05 08:01] VITALS: BP 137/76
[2018-06-05] MEDS ORDERED: BACTRIM DS TAB1 EACH PO (11:33)
[2018-06-05] MEDS ORDERED: ACETAMINOPHEN325 M1 PO (11:33)
[2018-06-05 13:45] VITALS: BP 137/76
[2018-06-05 14:12] VITALS: BP 137/76
[2018-06-05 15:48] VITALS: BP 137/76
[2018-06-05 16:43] VITALS: BP 137/76
== END 2018-06-05 14:22 | disposition home health service (06) | DRG 571 ==
LOC: ER 15:38 → EROBS 16:45 → 4E 16:45
PROVIDERS: Emergency Medicine; Nurse Practitioner
DX: L89.153 Pressure ulcer of sacral region, stage 3 (principal); I50.32 Chronic diastolic (congestive) heart failure; G82.20 Paraplegia, unspecified; L89.623 Pressure ulcer of left heel, stage 3; L89.613 Pressure ulcer of right heel, stage 3; E78.5 Hyperlipidemia, unspecified; M19.90 Unspecified osteoarthritis, unspecified site; E66.9 Obesity, unspecified; I25.10 Atherosclerotic heart disease of native coronary artery without angina pectoris; I11.0 Hypertensive heart disease with heart failure; R33.9 Retention of urine, unspecified; M62.84 Sarcopenia; D63.8 Anemia in other chronic diseases classified elsewhere; E83.42 Hypomagnesemia; N31.9 Neuromuscular dysfunction of bladder, unspecified; Z87.11 Personal history of peptic ulcer disease; Z68.31 Body mass index [BMI] 31.0-31.9, adult; Z95.5 Presence of coronary angioplasty implant and graft; Z86.718 Personal history of other venous thrombosis and embolism; Z87.81 Personal history of (healed) traumatic fracture; Z98.891 History of uterine scar from previous surgery; Z86.711 Personal history of pulmonary embolism; Z93.3 Colostomy status; Z79.899 Other long term (current) drug therapy; Z88.0 Allergy status to penicillin; Z88.1 Allergy status to other antibiotic agents; Z88.8 Allergy status to other drugs, medicaments and biological substances
CPT/HCPCS: 10084

== ENCOUNTER 2018-07-17 10:46 | Inpatient (IN) | payer OTHER ==
[~2018-07-17] VITALS: Ht 162.6 cm; Wt 81.6 kg
--- NOTE | ~2018-07-17 | HC ---
[facility] [place] [address] CONSULTATION Name: NATALI UNGER Room #: 451-P [facility] IN M.R.#: [id number] Admission: 07/17/18 Attend Phys: Neil Tiwari MD Discharge: Date of : 52 Report #: [id number] THIS REPORT FOR: //name// CC: Neil Pendleton DATE OF SERVICE: 07/21/2018 CONSULTATION: Infectious diseases. HISTORY OF PRESENT ILLNESS: A 67-year-old white female admitted to [facility] on 07/17 because of a failing sacral decubitus ulcer. The chart notes the wound has been present for about 5 months, but review of the record shows the patient presented on 01/10 with a 3-week history of sacral decubitus ulcer due to paraplegia and inability to manage stools. At that time, the patient had a diverting colostomy and debridement. She has continued to follow with Dr. Peters. Apparently over the last several weeks, the wound became much worse. Her home health recommended that she return to the hospital where Dr. Peters described a wound "the size of a lemon" with foul drainage. CT scan described a 10 cm wound on the sacrum going down to and involving the coccyx. Two days after admission, the patient went to the operating room for debridement down to and including bone. Infectious disease consultation was requested to assist with further wound management and recommendation and antibiotics. PAST MEDICAL HISTORY: Includes diagnosis of rheumatoid arthritis, hypertension, hyperlipidemia, coronary artery disease, congestive heart failure, deep vein thrombosis, obesity. In 11/2016, the patient was on warfarin and suffered a hemorrhage, T6 through T10 with fairly dense paraparesis. She has had problems associated with paraplegia since then with multiple wounds on her sacrum and legs. The patient describes WARFARIN is "an allergy," but really was an adverse reaction with hemorrhage. She says that statins cause elevated liver function tests. PAST SURGICAL HISTORY: Includes open reduction and internal fixation of an elbow fracture, section, coronary angioplasty, exploratory laparotomy for perforated ulcer, placement of an IVC filter and the colostomy. MEDICATIONS: Current medication reconciliation is as follows: Metoprolol 25 mg b.i.d., acidophilus 2 caps daily, lidocaine patches times 2 daily, MiraLax 17 grams daily, pantoprazole 40 mg daily, benzocaine, menthol cetyl alcohol spray q. 2 hours p.r.n., Dakin solution to the wound, trazodone 50 mg at bedtime, docusate 100 mg b.i.d., cefepime 1 gram every 8 hours, Tylenol 650 mg p.r.n., cyclobenzaprine 10 mg t.i.d. p.r.n., tramadol 50 mg every 4 hours p.r.n., fentanyl 50 mcg every 4h p.r.n. IV, Zofran 4 mg q. 4h IV p.r.n., enoxaparin 40 mg at bedtime and vancomycin 1 gram every [address] [address] CONSULTATION Name: NATALI UNGER Room #: 451-P [facility] IN [facility]#: [id number] Admission: 07/17/18 Attend Phys: Neil Tiwari MD Discharge: Date of : 52 Report #: [id number] FAMILY HISTORY: Noncontributory. SOCIAL HISTORY: The patient is . The patient was in independent living, but required assistance to transfer from bed to chair. She had home health for couple of hours every 12 hours to assist with rising and returning to bed. She was pretty much on her own in between. She does have some assistance from friends and family. The patient notes no history of tobacco nor alcohol. REVIEW OF SYSTEMS: GENERAL: The patient denies fevers, chills, sweats. The patient denies any head or neck complaints. The patient denies cough, chest pain, shortness of breath. The patient denies nausea, vomiting, diarrhea, constipation. She has a colostomy. She denies any pain from her wound. She denies any trouble with urination. She has a Avery catheter. She denies any problems or pain from her extremities. The patient does not admit to depression became tearful when expressing that she wants "just to be normal." PHYSICAL EXAMINATION: GENERAL: The patient appeared awake, alert, and comfortable, not in any distress. VITAL SIGNS: Show temperature today 38.1. SKIN: Shows no rash nor exanthem. The wound was dressed and not directly examined. ENT: Negative. HEART: Sounds normal. LUNGS: Clear. ABDOMEN: Belly obese, soft, not tender. EXTREMITIES: Demonstrate the paralysis below the waist. LABORATORY DATA: White count was 15,000 on admission, is down to 12,000. Hemoglobin 9.5, platelet 587,000. Electrolytes, BUN and creatinine are normal. Alkaline phosphatase was 255, now down to 191. Albumin is 1.7. Culture from the wound from last May did show MRSA. Recent vancomycin trough level was 18. ASSESSMENT: In summary, we have a patient with paraplegia, social issues regarding adequate support who developed a deep decubitus wound, which involved bone. I would suggest that the patient be treated aggressively for osteomyelitis with 6 weeks of IV antibiotic therapy. We will continue the vancomycin and cefepime, as cultures from Sunday surgery are still pending. We may be able to adjust the antibiotics based on those results. I would like to check for any metabolic parameters, which may be associated with [facility] [address] [place] [address] CONSULTATION Name: NATALI UNGER Room #: 451-P ADM IN ..#: [id number] Admission: 07/17/18 Attend Phys: Neil Tiwari MD Discharge: Date of : 51 Report #: [id number] poor wound healing and it could be corrected. I want to check a zinc level, TSH level. The dietitian will try to increase protein and Brett supplements. I will order a PICC line tomorrow as I anticipate a long course of parenteral antibiotic therapy will be necessary. The patient should probably be in some place get IV antibiotic therapy and rehabilitation, as well as excellent wound care. I discussed with the patient that it is not impossible that she will have more neurological recovery, but after 18 months, this probably is what we are going to have to deal with. She needs to prepare to maximize her functionality as a paraplegic. Hopefully, she can learn to transfer independently, dress independently, and try to get out and about. At this point, the patient is somewhat overwhelmed with some of these social issues. She may benefit from a psychiatric consultation and adjustment of some of her antidepressant therapy. I appreciate the opportunity of input in the care of this unfortunate patient. Dr. Keyes will return tomorrow for additional followup. By: 1225 [id number] Hans Benavidez MD /nt
[~2018-07-17 10:46] MED LIST changes: +ACETAMINOPHEN325 M1 PO
[2018-07-17 10:49] VITALS: BP 88/43
[2018-07-17 11:19] LABS: HEMATOCRIT 32.4 % (37.0-47.0); HEMOGLOBIN 10.9 gm/dL (12.0-15.0); MCH 27.9 pg (26.0-34.0); MCHC 33.7 g/dL (28.0-37.0); MCV 82.7 fL (80.0-100.0); PLATELET COUNT 602 thou/uL (150-400); RBC 3.92 mil/uL (4.20-5.00); RDW 15.1 % (10.5-14.5)
[2018-07-17 11:27] LABS: CALCIUM 9.3 mg/dL (8.5-10.1); POTASSIUM 3.8 mmol/L (3.5-5.1)
[2018-07-17 11:33] LABS: ALBUMIN 2.2 g/dL (3.4-5.0); TOTAL BILIRUBIN 0.4 mg/dL (<0.1-1.0); TOTAL PROTEIN 7.7 g/dL (6.4-8.2)
[2018-07-17 12:36] LABS: ABSOLUTE NEUTROPHILS 12.3 thou/uL (1.4-8.2); METAMYELOCYTES 1 %; PLATELET ESTIMATE INCREASED
[2018-07-17 13:59] VITALS: BP 96/57
--- NOTE | 2018-07-17 14:21 | NUR ---
REPORT GIVEN TO 4W AT 1410. ROOM IS NOT CLEAN/READY FOR TRANSPORT AT THIS TIME. 4W TO CALL ER WHEN READY
[2018-07-17 14:45] VITALS: BP 107/65
[2018-07-17 15:15] VITALS: BP 104/61
--- NOTE | 2018-07-17 16:21 | NUR ---
ADM PT CAME IN FROM ER. PT ORIENTED TO ROOM. ADM ORDERS CARRIED OUT. WOUND CARE AND PHOTO DONE ATTACHED TO CHART. WILL CONTINUE TO MONITOR.
[2018-07-17 19:08] VITALS: BP 117/65
[2018-07-18 04:18] VITALS: BP 95/45
--- NOTE | 2018-07-18 04:22 | NUR ---
ASSUMED CARE AT START OF SHIFT , PT RESTING IN BED DRESSING INTACT TO COOCYX AREA, LOW AIR LOST PUMP APPLIED TO MATTRESS. DENIES PAIN, DISCUSS PLAN OF CARE AND AGREEABLE, RESTED WELL THROUGHOUT HOURLY ROUNDS. NECK BAND OPERATOR SHOWS NSR.
[2018-07-18 05:28] LABS: ABSOLUTE NEUTROPHILS 7.3 thou/uL (1.4-8.2); BASOPHILS 0.4 % (0.0-2.0); EOSINOPHILS 1.9 % (0.0-3.0); HEMOGLOBIN 9.2 gm/dL (12.0-15.0); LYMPHOCYTES 23.7 % (24.0-44.0); MCH 27.3 pg (26.0-34.0); MCHC 32.8 g/dL (28.0-37.0); MCV 83.2 fL (80.0-100.0); MONOCYTES 8.4 % (1.0-8.0); PLATELET COUNT 535 thou/uL (150-400); POLYS 65.6 % (36.0-66.0); RBC 3.36 mil/uL (4.20-5.00); RDW 14.8 % (10.5-14.5); WBC 11.1 thou/uL (4.0-11.0)
[2018-07-18 05:44] LABS: ALBUMIN 1.7 g/dL (3.4-5.0); CALCIUM 8.2 mg/dL (8.5-10.1); CREATININE 0.8 mg/dL (0.6-1.0); MAGNESIUM 1.6 mg/dL (1.8-2.4); POTASSIUM 3.8 mmol/L (3.5-5.1); TOTAL BILIRUBIN 0.3 mg/dL (<0.1-1.0); TOTAL PROTEIN 5.3 g/dL (6.4-8.2)
[2018-07-18 08:49] VITALS: BP 110/61
--- NOTE | 2018-07-18 10:57 | NUR ---
RD consult received. Familiar with pt from multiple admissions due to chronic sacral pressure ulcer requiring I/D. Paraplegia. Wt stable at 180 lb for long time. Eats high protein foods and will drink Brett-will place order. Physician has indicated protein calorie malnutrition-will defer. Low nutrition risk
--- NOTE | 2018-07-18 14:39 | NUR ---
WOUND CONSULT: PT. WAS SEEN TODAY BY DR. TREVINO AND MYSELF. PT. IS WELL KNOWN TO THE WOUND CARE TEAM. PT. HAS A RESOLVING STAGE 3 PRESSURE ULCER TO HER LEFT HEEL. PT. PRESSURE ULCER TO HER SACRUM HAS ADVANCED TO A STAGE 4. UPON ASSESMENT OF THIS WOUND PURLENT DRAINAGE WITH FLOUL ODOR IS NOTED AND THERE IS VISIBLE BONE EXPOSED. PT. ALSO HAS 2 NEW PRESSURE WOUNDS SINCE HER LAST HOSPITALIZATION. STAGE 2 PRESSURE ULCERS LOCATED ON HER LEFT AND RIGHT BUTTOCK. SPOKE WITH DR. DAILEY IN REGARDS TO THIS PT. AND HE WILL TAKE HER TO THE OR AT THE NEXT AVALIBLE TIME. RECOMMENDATIONS: WOUND CARE TO LEFT HEEL, LEFT AND RIGHT BUTTOCK: GENTLY CLEANSE WITH WOUND CLEANSER OR NORMAL SALINE, COVER WITH OPTIFOAM BORDER, COMPLETE CARES M/W/F AND PRN SOILAGE. WOUND CARE TO SACRUM: GENTLY CLEANSE AREA WITH WOUND CLEANSER OR NORMAL SALINE, PACK WITH DAKIN SOAKED KERLIX, COVER WITH ABD, SECURE WITH TAPE, COMPLETE CARES BID. TURN Q2 HOURS KEEP PT. OFF WOUNDS MUCH POSSIBLE KEEP ON HARRY MATRESS. PT. AND STAFF NURSE WERE INSTRUCTED ON WOUND CARE.
[2018-07-18 15:30] VITALS: BP 134/75
--- NOTE | 2018-07-18 18:21 | NUR ---
PATIENT SEEN BY DR. MIKE THIS DATE. PATIENT IS NOT A REHAB CANDIDATE AT THIS TIME. DETENTION FACILTIY MAY BE A BETTER PLAN FOR DISCHARGE LOCATION. THANK YOU FOR THIS REFERRAL.
[2018-07-18 19:45] VITALS: BP 130/55
--- NOTE | 2018-07-18 19:54 | NUR ---
ASSUMED CARE OF PT AT APPROX 0700. PT IS ALERT AND ORIENTED X4, MONITORED ON TELE AND ABLE TO MAINTAIN 02 SAT >90 ON RA. DENIES PAIN AND SOA. PT TURNED FREQUENTLY TO MAINTAIN SKIN INTEGRITY. WOUND CARE TO SEE PT TODAY WITH NEW WOUND CARE ORDERS. ASSESSMENT CHARTED. EVEN NON LABORED BREATHING. PT TO HAVE I AND D TOMORROW AND IS AWARE. NO NEW CONCERNS VOICED. PT MAKING SLOW PROGRESS TOWARDS POC GOALS.
[2018-07-19] VITALS (7 sets, daily range): BP systolic 105–149; BP diastolic 57–70
--- NOTE | 2018-07-19 04:43 | NUR ---
C/O BACK PAIN. REQUIRED BOTH PO AND IV PRN MEDS TO ACHIEVE EFFECTIVE RELIEF OF DISCOMFORT. PERMIT SIGNED FOR SURGERY PLANNED FOR 07/19/18 AM AT 0900. PATIENT VERBALIZED FEELINGS OF FEAR, ANXIETY REGARDING PROCEDURE, "JUST WANT TO HAVE TO OVER." GIVEN EMOTIONAL SUPPORT. TURNED Q2HRS. ADEQUATE OUTPUT FROM LANIER CATHETER AND COLOSTOMY. NPO SINCE MIDNIGHT.
--- NOTE | 2018-07-19 08:52 | HC ---
[facility] [place] [address] CONSULTATION Name: NATALI UNGER Room #: 451-P [facility] IN ..#: [id number] Admission: 07/17/18 Attend Phys: Neil Tiwari MD Discharge: Date of : 52 Report #: [id number] THIS REPORT FOR: //name// CC: Neil Pendleton DATE OF SERVICE: 07/18/2018 REQUESTING PHYSICIAN: Neil Tiwari MD. CHIEF COMPLAINT: Sacrococcygeal decubitus ulcer. HISTORY OF PRESENT ILLNESS: This is a 67-year-old white female who is well known to me for a nonhealing ulcer in the sacrococcygeal region. 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 The patient was seen in my office approximately 2-3 weeks ago. At that point in time, the patient's home health had discontinued her for unknown reasons and has been having a nursing faculty to do her dressing changes. The patient states that she felt the wound was getting worse, which prompted her to come to the Emergency Department to be evaluated. In the Emergency Department, the patient was diagnosed with an infected sacrococcygeal ulcer with exposed bone. We have been asked to follow her for this. 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 CURRENT MEDICATIONS: Multiple, I reviewed the patient's medication list. DRUG ALLERGIES: PENICILLIN, COUMADIN. SOCIAL HISTORY: The patient does not smoke or drink alcohol. FAMILY HISTORY: Not pertinent to current medical condition. REVIEW OF SYSTEMS: CONSTITUTIONAL: The patient denies fevers or chills. NEUROLOGIC: The patient complains of generalized weakness, which has been progressive. The patient also is paralyzed in the lower extremities. EYES: No complaints. ENT: No complaints. CARDIAC: The patient denies chest pain, palpitations, peripheral edema. RESPIRATORY: The patient denies shortness of breath, cough or wheezes. GASTROINTESTINAL: The patient has decreased appetite, but no nausea, vomiting, diarrhea. GENITOURINARY: The patient denies urgency or frequency. MUSCULOSKELETAL: No complaints. [facility] [address] [place] [address] CONSULTATION Name: NATALI UNGER Room #: 451-P [facility] IN [facility]#: [id number] Admission: 07/17/18 Attend Phys: Neil Tiwari MD Discharge: Date of : 52 Report #: [id number] SKIN: There is a large sacral decubitus ulcer consistent with stage 4 ulcer. PHYSICAL EXAMINATION: VITAL SIGNS: Temperature 38.4, pulse 96, respirations 20, BP 130/55. GENERAL: This is an alert and oriented x 3, chronically ill-appearing white female who appears in mild distress secondary to symptoms. HEENT: Normocephalic, atraumatic. Mucous membranes are dry. Pupils are round. Sclerae white. NECK: Supple, nontender, no JVD. LUNGS: Clear. HEART: Regular. ABDOMEN: Soft, otherwise nontender. EXTREMITIES: The patient has spontaneous movement of the upper extremities, but no movement of the lower extremities. Evaluation of sacrococcygeal region reveals a large foul smelling decubitus ulcer with exposed coccygeal bone. The drainage is brown, foul smelling. There is a significant amount of undermining and tunneling going in all directions. Periwound is otherwise intact. There is ischial tuberosity 2 new stage 2 decubitus ulcers, which are clean and granulating, superficial, without signs of actual infection. NEUROLOGIC: Cranial nerves 2-12 grossly intact. The patient is once again paralyzed in lower extremities. LABORATORY DATA: White count 11.1, hemoglobin 9.2. Sed rate 78, BUN 8, creatinine 0.8, C-reactive protein is 219. Albumin is 1.7. IMPRESSION: 1. Infected stage 4 sacrococcygeal decubitus ulcer, in need of debridement. 2. Bilateral ischial tuberosity stage 2 decubitus ulcers, 1 and 2 are both present on admission. 3. Diabetes mellitus. 4. Protein-calorie malnutrition -- severe with albumin 1.7. 5. Generalized debility. 6. 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 PLAN: At this time, General Surgery will be consulted. They are familiar with this patient for surgical debridement and possibly bony debridement as well. Afterwards, we will look at the options of most likely a negative pressure therapy for this wound as well as there is a high likelihood he will need myocutaneous flap closure for final healing of this wound. We will make sure we maximize the patient's protein supplementation. I will talk to patient about possibly even putting a PEG tube for temporary use. At this time, we will start Dakin's half strength wet to dry dressings to the sacrococcygeal decubitus ulcer, change twice daily. We will start foam dressings over the bilateral ischial ulcerations, change 3 times weekly. We will put on a low air loss mattress and will be turned every 2 hours. Continue all other current [address] [address] CONSULTATION Name: UTENATALI Room #: 451-P [facility] IN [facility].#: [id number] Admission: 07/17/18 Attend Phys: Neil Tiwari MD Discharge: Date of : 51 Report #: [id number] medications and continue to follow the patient. I appreciate the ability to consult. <ELECTRONICALLY SIGNED> By: Isac Peters MD 07/19/18 0852 [id number] Isac Peters MD /nt
--- NOTE | 2018-07-19 11:25 | NUR ---
ARRIVED POST OP THIS MORNING 1015. A/OX4 PAIN MANAGED WITH MEDICATIONS. COMPLAINTS OF DIZZINESS THAT ARE RESOLVING WITH FLUIDS. VSS. RESUME DIET PER ORDER. LANIER 250 POST SURGERY.COLOSTOMY INTACT SOFT BROWN OUTPUT. TURNS Q2HR TOLERATED. USES CALL LIGHT APPROPRIATELY. CONTINUE TO MONITOR.
--- NOTE | 2018-07-19 14:18 | NUR ---
pt back to room after surgical procedure today. pt in bed, eye open, cont on isolation precaution. pt is a & o x 3, and able to make her needs know. intro to cm and transition of care, rehab, wound care and home health. "well i will be going home, so what is to plan. never had private duty. live home alone, have wheel chair and xiomara lift. resting now"/rosalind. will cont following as needed for dc needs. discussed during los, here through the weekend.
[2018-07-20 04:59] VITALS: BP 154/77
--- NOTE | 2018-07-20 08:07 | NUR ---
PROGRESS PT A/O X4 RATES PAIN A 6 TAKING TRAMADOL NEEDED, IV ABT'S GIVEN ORDERED CONTINUE POC.
[2018-07-20 08:49] VITALS: BP 148/75
[2018-07-20 17:04] VITALS: BP 94/46
[2018-07-20 18:24] VITALS: BP 102/63
[2018-07-20 19:08] VITALS: BP 124/57
--- NOTE | 2018-07-20 19:24 | NUR ---
A/OX4, PAIN MANAGED WITH MEDS, DRESSING CHANGED PER ORDERS, TURNED Q2HR TOLERATED. CALL FOR ASSISTANCE APPROPRIATELY. 75% OF BREAKFAST, 5% OF LUNCH. 100% OF DINNER. REPORTS BEING TIRED. VSS, PLEASANT, CALL LIGHT IN REACH. MAY DC TO [facility] ON SUNDAY.
[2018-07-21 04:16] VITALS: BP 86/43
--- NOTE | 2018-07-21 05:32 | NUR ---
Pt. rested quietly at intervals during the night when checked on during frequent rounds. Dressing to her sacral wound is intact. No c/o pain. Turned and repositioned during the night. Bed alarm is on.
[2018-07-21 07:19] VITALS: BP 90/47
[2018-07-21 09:41] LABS: HEMATOCRIT 28.4 % (37.0-47.0); HEMOGLOBIN 9.5 gm/dL (12.0-15.0); MCH 27.6 pg (26.0-34.0); MCHC 33.4 g/dL (28.0-37.0); MCV 82.5 fL (80.0-100.0); PLATELET COUNT 587 thou/uL (150-400); RBC 3.45 mil/uL (4.20-5.00); RDW 14.9 % (10.5-14.5)
[2018-07-21 10:04] LABS: ABSOLUTE NEUTROPHILS 8.6 thou/uL (1.4-8.2); ANISOCYTOSIS 1+
[2018-07-21 10:06] LABS: POLYCHROMASIA OCCASIONAL
[2018-07-21 11:48] VITALS: BP 99/47
--- NOTE | 2018-07-21 12:59 | NUR ---
Assumed pt care at 0645. pt was sleeping at shift change, upon return with morning medication pass, pt was alert and oriented with no issues or concerns. [facility]
[2018-07-21 16:34] VITALS: BP 94/53
--- NOTE | 2018-07-21 16:53 | NUR ---
VASCULAR ACCESS CONSULTED FOR PICC PLACEMENT. PT'S LABS,MEDS,HISTORY,ORDER AND CONSENT VERIFIED.DISCUSSED BENEFITS AND RISK OF PICC WITH PT,VERBALIZED UNDERSTANDING. PT WAS PREPPED AND DRAPED FOR MAX BARRIER PRECAUTIONS.MEASURED 25% OF VESSEL. 1% LIDOCAINE GIVEN SQ. 4FR SL POWER PICC TRIMMED TO 49CM INSERTED TO 3CM EXTERNAL. PICC SECURED STAT CXR ORDERED.
--- NOTE | 2018-07-21 17:24 | NUR ---
PRIOR CHARTING LINE WAS TRIMMED TO 44CM NOT 49CM. CXR CONFIRMED PLACEMENT AT [facility]. PICC RELEASED FOR IMMEDIATE USE PER PROTOCOL.
[2018-07-22 01:13] VITALS: BP 114/59
--- NOTE | 2018-07-22 04:57 | NUR ---
Pt. rested quietly at intervals during the night when checked on during frequent rounds. She was given po pain med for c/o pain to her buttocks with some relief noted (see emar). Pt. turned and repositioned. Bed alarm is on.
[2018-07-22] MEDS ORDERED: UNICOMPLEX M TA1 TA1 PO ×2 (05:12)
[2018-07-22] MEDS ORDERED: LIORESAL 10 MG10 MG PO ×2 (05:13)
[2018-07-22] MEDS ORDERED: COLACE100 MG PO ×2 (05:15)
[2018-07-22] MEDS ORDERED: PROTONIX40 M1 PO ×2 (05:17)
[2018-07-22] MEDS ORDERED: ASPIRIN81 M2 PO ×2 (05:18)
[2018-07-22] MEDS ORDERED: CLARITIN10 MG PO ×2 (05:19)
[2018-07-22 05:36] LABS: HEMATOCRIT 25.7 % (37.0-47.0); HEMOGLOBIN 8.5 gm/dL (12.0-15.0); MCH 27.4 pg (26.0-34.0); MCV 83.1 fL (80.0-100.0); RBC 3.09 mil/uL (4.20-5.00); RDW 15.2 % (10.5-14.5); WBC 9.8 thou/uL (4.0-11.0)
[2018-07-22 05:44] LABS: CALCIUM 8.4 mg/dL (8.5-10.1); CREATININE 0.9 mg/dL (0.6-1.0); POTASSIUM 3.1 mmol/L (3.5-5.1)
[2018-07-22 09:27] VITALS: BP 111/59
--- NOTE | 2018-07-22 10:59 | NUR ---
Assumed pt care at 0645, pt is a/ox4 with no issues or concerns at this time. will continue to [facility] patient.
--- NOTE | 2018-07-22 12:34 | NUR ---
ostomy care; outer wafer soiled w/ stool, pt does not remember how long pouch has been on, changed using 2 piece system alyx w/ adapt ring under wafer, stoma pink viable budded w/ loose brown stool noted, peristomal skin intact, supplies at bs, staff veterinarian informed of care, will cont to follow prn
[2018-07-22 16:27] VITALS: BP 98/53
[2018-07-22 20:22] VITALS: BP 163/86
[2018-07-22 22:10] LABS: GLYCOHEMOGLOBIN (HGB A1C) 5.6 % (4.8-5.6)
--- NOTE | 2018-07-23 03:13 | NUR ---
PT RESTED THROUGHOUT THE NIGHT PT USED CALL LIGHT EFFECTIVELY NO ISSUES OVERNIGHT.
[2018-07-23 05:03] VITALS: BP 143/80
[2018-07-23 07:56] VITALS: BP 122/75
--- NOTE | 2018-07-23 08:19 | NUR ---
WOUND FOLLOW UP: PT. WAS SEEN ON 07/22/[address] MANCIA AND MYSELF FOR A FOLLOW-UP. PT. HAD SURGICAL DEBRIDEMENT OF HER SACRAL WOUND ON SUNDAY. TODAY THE WOUND BED IS BEEFY RED AND CLEAN. PT. WILL BE STARTED ON WOUND VAC THERAPY ON 07/23/18 TO AID IN WOUND HEALING. RECOMMENDATIONS: CONTINUE WITH CURRENT PLAN OF CARE. PT. AND STAFF NURSE WERE INSTRUCTED ON PLAN OF CARE.
--- NOTE | 2018-07-23 11:08 | PATH ---
[facility] [address] [place] [address] PATHOLOGY RPT PROCEDURE Name: NATALI UNGER Room #: 451-P [facility] IN M.R.#: [id number] Admission: 07/17/18 Date of : 52 Discharge: Report #: [id number] Path Case #: [id number] [facility] Accession Number: [id number] . 01 Material submitted: . SACRAL DEBRIDEMENT . 01 Clinical history: . Sacral wound . 02 Diagnosis: Sacral wound debridement: - Ulceration along with marked acute inflammation as well as fibrinoid degeneration. - Skeletal muscle and fibroadipose tissue showing reactive changes. (IUV:pit 07/22/2018) QTP/07/22/2018 . 02 Electronically signed: . Jasmyn Flower MD, Pathologist NPI- [id number] . 01 Gross description: . The specimen is received in formalin, labeled "Natali Unger, debridement". Received are multiple segments of dusky grady-mcintosh to yellow-mcintosh fibroadipose tissue with attached pale mcintosh skin measuring 12.5 x 9.7 x 4.3 cm in aggregate dimensions. The specimen is submitted representatively in cassette A1. (CAA; 07/19/2018) QAC/QAC . 02 Pathologist provided ICD-10: L89.159 . 02 CPT . [id number] Specimen Comment: A courtesy copy of this report has been sent to Specimen Comment: [phone], , , . Specimen Comment: Report sent to ,DR ARCE,DR EASON / DR DARDEN Specimen Comment: A duplicate report has been generated due to demographic updates. Performed at: [address] [id number] MD Ney Zavala MD Phone: [phone] Performed at: 02 [facility] [address] [place] [address] PATHOLOGY RPT PROCEDURE Name: NATALI UNGER Room #: 451-P [facility] IN M.R.#: [id number] Admission: 07/17/18 Date of : 52 Discharge: Report #: [id number] Path Case #: [id number] [address] [place] [id number] MD Jasmyn Flower MD Phone: [phone]
--- NOTE | 2018-07-23 11:30 | NUR ---
WOUND FOLLOW UP: PT. WAS STARTED ON WOUND VAC THERAPY TODAY PER DR. MANCIA'S ORDERS. WE UTLIZED VERAFLOW THERAPY. PT. TOLERATED PROCEDURE WELL. RECOMMENDATIONS: CONTINUE WITH CURRENT PLAN OF CARE. PT. AND STAFF NURSE WERE INSTRUCTED ON PLAN OF CARE.
[2018-07-23 17:11] VITALS: BP 106/63
--- NOTE | 2018-07-23 17:11 | NUR ---
PT STABLE THROUGHOUT SHIFT. PT VERY UNCOOPERATIVE THIS MORNING AND REFUSED BREAKFAST. PT TURNED Q2 HOURS. LATER IN SHIFT PT MORE COOPERATIVE, VERY EMOTIONALLY LABILE RANGING FROM ANGER TO CRYING. PT C/O PAIN, GIVEN MEDS. PT RESTING.
[2018-07-23 19:19] VITALS: BP 93/55
--- NOTE | 2018-07-24 03:21 | NUR ---
PT ANGRY AND YELLING AT STAFF PT EVENTUALLY CALMED DOWN PT GIVEN TRAMADOL FOR PAIN PT RESTED THROUGH MOST OF THE NIGHT PT TURNED Q2 HOURS
[2018-07-24 04:49] VITALS: BP 99/59
[2018-07-24 09:07] VITALS: BP 115/64
--- NOTE | 2018-07-24 14:07 | NUR ---
WOUND FOLLOW UP: PT. WAS SEEN TODAY BY DR. MANCIA AND MYSELF. PT. WOUND VAC IS C/D/I AT THIS VISIT. SINCE IT WAS STARTED YESTERDAY IT WAS LEFT IN PLACE TODAY. HEEL IS STABLE AT THIS TIME. RECOMMENDATIONS: CONTINUE WITH CURRENT PLAN OF CARE. PT. AND STAFF NURSE WERE INSTRUCTED ON PLAN OF CARE.
--- NOTE | 2018-07-24 14:37 | NUR ---
dp faxed initial skilled referral to [facility] and to [facility]. Patient likely to discharge tomorrow, will have wound vac and probably iv antibiotics. Dp will ensure delivery of faxed referrals. Case management to follow.
--- NOTE | 2018-07-24 15:12 | NUR ---
CARE TEAM INDICATED PT REQUIRES POST ACUTE CARE STAY. IT IS UNLIKELY THAT PT'S INSURANCE WITH AUTH [facility]. CM MET WITH PT AT BEDSIDE THIS DAY AND PROVIDED SNF LIST FOR PT'S REVIEW. SHE REQUESTED THAT REFERRALS BE SENT TO [facility], AND [facility]. DC CUSTOM BIKE BUILDER TO FAX REFERRALS. ANTICIPATE DC TOMORROW. CM TO FOLLOW INDICATED WITH DC PLANNING.
[2018-07-24 15:56] VITALS: BP 113/63
--- NOTE | 2018-07-24 18:21 | NUR ---
PT STABLE THROUGHOUT SHIFT. PT C/O PAIN, MEDS GIVEN. PT TURNED REGULARLY. PT RESTING.
[2018-07-24 20:30] VITALS: BP 107/60
[2018-07-25 05:25] VITALS: BP 121/68
[2018-07-25 06:08] LABS: HEMATOCRIT 28.5 % (37.0-47.0); HEMOGLOBIN 9.3 gm/dL (12.0-15.0); MCHC 32.6 g/dL (28.0-37.0); MCV 82.7 fL (80.0-100.0); RBC 3.45 mil/uL (4.20-5.00); RDW 14.8 % (10.5-14.5); WBC 7.3 thou/uL (4.0-11.0)
[2018-07-25 06:24] LABS: ALBUMIN 1.7 g/dL (3.4-5.0); CALCIUM 8.9 mg/dL (8.5-10.1); CREATININE 0.9 mg/dL (0.6-1.0); POTASSIUM 3.2 mmol/L (3.5-5.1); TOTAL BILIRUBIN 0.2 mg/dL (<0.1-1.0); TOTAL PROTEIN 5.9 g/dL (6.4-8.2)
--- NOTE | 2018-07-25 07:17 | NUR ---
progress pt alert and oriented, very demanding. picc line to fiorella infusing ns @ 20cc's hr intermittent anticiotics continue. pain controlled with hydrocodone gave one dose last night and patient slept through the night.
[2018-07-25 07:22] VITALS: BP 101/57
--- NOTE | 2018-07-25 12:41 | NUR ---
[facility] INDICATED THEY AREN'T ABLE TO ACCEPT PT. [facility] IS [facility] AND DOESN'T HAVE FEMALE BEDS OPEN. REFERRAL BEINF RESENT TO [facility] FOR REVIEW. CM TO VISIT WITH PT AND REQUEST MORE FACILITIES TO SEND REFERRALS TO.
[2018-07-25 14:24] VITALS: BP 147/78
--- NOTE | 2018-07-25 15:15 | NUR ---
WOUND FOLLOW UP: PT. WAS SEEN TODAY BY DR. MANCIA AND MYSELF. PT. WOUND VAC IS C/D/I AT THIS TIME. RECOMMENDATIONS: CONTINUE WITH CURRENT PLAN OF CARE. PT. AND STAFF NURSE WERE INSTRUCTED ON PLAN OF CARE.
--- NOTE | 2018-07-25 16:19 | NUR ---
[facility] IS SEEKING INSURANCE AUTH FOR POSSIBLE ADMISSION. CM FOLLOWING FOR ADMISSION.
--- NOTE | 2018-07-25 16:39 | NUR ---
ASSUMED PT CARE AT 0700. PT IS A/O X4 WITH SOME CONFUSION. WILL CONTINUE TO MONTIOR PT. WOUND VAC WAS REINFORCED AND IS WORKING WELL. WILL CONTINUE TO WORK ON D/C
[2018-07-25 18:58] VITALS: BP 111/69
[2018-07-26 04:57] VITALS: BP 91/56
--- NOTE | 2018-07-26 05:28 | NUR ---
ASSESSMENT: PT REMAIN ALERT AN ORIENT TIMES FOUR. PT ORDERED A PIZZA LAST NIGHT, ONLY EATING A FEW BITES. SR PER MONITOR, VSS, AFEBRILE. COLOSTOMY INTACT, SEMI-LIQUID, BROWN STOOL PRESENT. TURNED PER REQUEST BECAUSE PT ONLY ASKE TO BE TURNED WHEN "SHE" WANT TO BE TURNED. LANIER PATENT, DOES HAVE BLADDER SPASMS WHERE SHE WILL LEAK AROUND LANIER. CONTACT ISOLATION MAINTAINED FOR MRSA WOUNDS. SLOW PROGRESS TOWARDS DC GOALS, WILL CONTINUE TO MONITOR.
[2018-07-26 08:00] VITALS: BP 116/71
--- NOTE | 2018-07-26 09:32 | NUR ---
ostomy care pouch on 4 days, changed using 2 piece system alyx w/ adapt ring under wafer, stoma pink viable budded w/ mushy brown stool, peristomal skin intact, cooperative w/ care, supplies at bs, staff software engineer informed of care, will cont to follow prn
--- NOTE | 2018-07-26 11:01 | NUR ---
Nutrition followup: S/P debridement of stage 4 chronic sacral wound. Wound care follows, wound vac in place. No new weight to evaluate. Pt continues to eat well and orders meals, eats high protein foods and daniel BID. Pt is also agreeable to Ensure max once daily. D/C soon. Low nutrition risk.
--- NOTE | 2018-07-26 11:28 | NUR ---
WOUND FOLLOW UP: PT. WAS SEEN TODAY BY WOUND CARE FOR WOUND VAC DRESSING CHANGE. DRESSING WAS CHANGED TODAY. PT. TOLERATED PROCEDURE WELL. RECOMMENDATIONS: CONTINUE WITH CURRENT PLAN OF CARE. PT. AND STAFF NURSE WERE INSTRUCTED ON PLAN OF CARE.
--- NOTE | 2018-07-26 15:22 | NUR ---
AWAITING INSURANCE AUTH FOR PT TO ADMIT TO [facility]. GALO SPOKE WITH DEANNA IN ADMISSIONS AT THE FACILITY AND INDICATED THAT SHE ANTICIPATES THAT THEY WILL RECIEVE DETERMINATION BY THIS AFTERNOON. SHE SAID THEY WILL BE ABLE TO PROVIDE TRANSPORT. PT WILL NEED [facility]. CONTACT DEANNA AT . FAX ORDERS ONCE COMPLETED TO . CALL REPORT TO .
[2018-07-26 16:00] VITALS: BP 121/77
--- NOTE | 2018-07-26 18:25 | NUR ---
ASSUMED CARE OF PT 0700. PROGRESSING TOWARD GOALS. ALERT X4, PAIN MANAGED WITH MEDICATION, PT BECOMES IMPATIENT AND CRIES. WOUND CARE DONE BY WOUND TYREL. CALL LIGHT IN REACH.
[2018-07-26 19:13] VITALS: BP 108/58
--- NOTE | 2018-07-27 03:11 | NUR ---
PT WAS ABLE TO GET SOME SLEEP PT USED CALL LIGHT EFFECTIVELY PT GIVEN TRAMADOL AND FLEXARIL FOR PAIN.
[2018-07-27 04:15] VITALS: BP 99/60
[2018-07-27 07:38] VITALS: BP 100/60
[2018-07-27 14:59] VITALS: BP 93/55
--- NOTE | 2018-07-27 16:26 | NUR ---
ASSUMED CARE OF PT 0700. PROGRESSING TOWARD GOALS, IMPATIENT, Q2H TURN TOLERATED. WOUND VAC SEAL LEAKING ATTEMPTED TO REINFORCE, REPLACED WITH WET TO DRY. PAIN MANAGED WITH MEDICATIONS, CALL LIGHT IN REACH.
[2018-07-27 18:59] VITALS: BP 127/70
[2018-07-28 07:12] LABS: MCH 26.7 pg (26.0-34.0); MCHC 32.2 g/dL (28.0-37.0); RBC 3.74 mil/uL (4.20-5.00); RDW 15.5 % (10.5-14.5); WBC 12.4 thou/uL (4.0-11.0)
[2018-07-28 07:39] LABS: ALBUMIN 2.2 g/dL (3.4-5.0); CALCIUM 9.2 mg/dL (8.5-10.1); POTASSIUM 4.2 mmol/L (3.5-5.1); TOTAL BILIRUBIN 0.2 mg/dL (<0.1-1.0)
[2018-07-28 08:00] VITALS: BP 101/63
--- NOTE | 2018-07-28 08:06 | NUR ---
progress pt reported pain giving hydrocodone with effect, tramadol given later iv antibiotics administered as ordered pt repositioned q2hrs drsg wet to dry to sacrum is c/d/i barakat in place drainage clear yellow urine, colostomy stoma protruding and pink with soft brown stool noted. pt quiet and slept most of shift.
--- NOTE | 2018-07-28 15:05 | HC ---
[facility] [place] [address] CONSULTATION Name: NATALI UNGER Room #: 451-P [facility] IN M.R.#: [id number] Admission: 07/17/18 Attend Phys: Neil Tiwari MD Discharge: Date of : 52 Report #: [id number] THIS REPORT FOR: //name// CC: Neil Pendleton DATE OF SERVICE: 07/27/2018 ATTENDING PHYSICIAN: Neil Tiwari MD. OPERATIONS GENERAL AGENT: Riaz Garvey, PhD. CLINICAL PRESENTATION: The patient is a 67-year-old female admitted to the [facility] for evaluation and treatment of lower extremity paraparesis. She was living in a penitentiary community when she experienced a deterioration in functioning. Her diagnosis on admission to the hospital was a chronic nonhealing sacral wound, chronic bilateral lower extremity nonhealing ulcers, hypertension, coronary artery disease, lower extremity paraplegia, chronic diastolic heart failure, peptic ulcer disease, PMR and hyperlipidemia. A complete description of her medical condition and history can be found in her medical record. Neuropsychological consultation was requested to provide assistance in the assessment of cognitive and emotional status and to provide recommendations and services. Prior to this most recent medical event, she was living in an independent apartment. She has 2 children. One child is a nurse and living in [facility]. The patient reported that her children are only minimally supportive. She relies primarily on jainism and peer support. She is a college graduate and retired from a career as a culinary art teacher. The patient also has worked as a medical receptionist assistant. It should be noted that her recently , in 05/2018. TECHNIQUES UTILIZED: Clinical interview, review of medical records, staff consultation and behavioral observation, mini mental status exam 2 brief version and subtest of attention/concentration and naming. EXAMINATION FINDINGS: The patient was alert, but irritable during the assessment. She presents as frustrated with the lingering nature of her medical condition, with intermittent agitation and decreased tolerance for frustration. She is lacking insight into her cognitive functioning and mood. Her subjective experience is that her memory, word finding, concentration and thought organization are all within normal limits. She also does not report depression or anxiety. She states that she does not want psychotherapy, counseling or psychotropic medication. However, as indicated, decreased insight into her emotional [facility] [address] [place] [address] CONSULTATION Name: NATALI UNGER Room #: 451-P [facility] IN [facility].#: [id number] Admission: 07/17/18 Attend Phys: Neil Tiwari MD Discharge: Date of : 52 Report #: [id number] status as well as cognition is suggested. Her performance on the MMSE 2 brief version was extremely low with a raw score of 11/16. She required frequent repetition for initial registration of information. She was 4/5 for orientation to time and 4/[address] She was 1/3 for immediate recall of 3 items after a brief time delay and distraction. Her mood was irritable and it was difficult for her to focus attention throughout the assessment. She was 2/5 for serial 7's. Naming was within normal limits. The patient appears to be presenting with both cognitive disorder as well as depression and anxiety. Depression is likely subsequent to the loss of her as well as coping with the severity of her medical condition and increased reliance on others for support. Lack of insight into her behavioral and cognitive symptoms further contribute to self-defeating behavior. DIAGNOSTIC IMPRESSION: Adjustment disorder with Depressed and Anxiety. Mild neurocognitive disorder, unspecified, with increased irritability. RECOMMENDATIONS: The patient will likely benefit from the use of an antidepressant. Consider an antidepressant that can also assist in the management of pain, example Cymbalta. However, the patient reports being opposed to the use of an antidepressant. The effectiveness of the medication for pain and depression may improve compliance with the recommendation. Her use of narcotics may be interfering with cognition. Reduce as medically appropriate, medication with sedating features. The patient would also benefit from psychotherapy to assist in adjustment. However, she is not currently requesting counseling services. Thank you very much for allowing me to provide the consultation on this patient. <ELECTRONICALLY SIGNED> By: Riaz Garvey, PhD 07/28/18 1505 [id number] Riaz Garvey, PhD /nt
[2018-07-28 17:01] VITALS: BP 115/62
--- NOTE | 2018-07-28 17:02 | NUR ---
Assumed patient care @ 0700. A&O X3. Telementry monitored. Turned Q 2 hours. Contact isolation maintained. Catheter patent yellow urine. Wet to dry drsg change to sacrum area completed. Ostomy in place. Pain meds given PRN pain. Used cath flow on PICC line to help flush line - effective for blood return. Resting in bed at present - no acute distress. Will continue to monitor throughout remainder of shift (1900).
[2018-07-28 19:43] VITALS: BP 105/56
[2018-07-29 03:56] VITALS: BP 103/63
[2018-07-29 05:47] LABS: HEMATOCRIT 29.2 % (37.0-47.0); HEMOGLOBIN 9.6 gm/dL (12.0-15.0); MCH 27.7 pg (26.0-34.0); MCHC 32.9 g/dL (28.0-37.0); MCV 84.1 fL (80.0-100.0); RBC 3.48 mil/uL (4.20-5.00); RDW 15.8 % (10.5-14.5)
[2018-07-29 06:06] LABS: CALCIUM 9.3 mg/dL (8.5-10.1); CREATININE 0.8 mg/dL (0.6-1.0); POTASSIUM 3.7 mmol/L (3.5-5.1); TOTAL BILIRUBIN 0.2 mg/dL (<0.1-1.0); TOTAL PROTEIN 6.5 g/dL (6.4-8.2)
[2018-07-29 08:33] VITALS: BP 113/61
--- NOTE | 2018-07-29 11:03 | NUR ---
ASSUMED PT CARE AT 0645AM, PT IS A/OX4 WITH NO CONCERNS OR ISSUES. PTS WOUND VAC WAS REMOVED ON SUNDAY, WET TO DRY DRESSING IN PLACE. WILL CHANGE DRESSING TODAY OR HAVE WOUND VAC REAPPLIED DEPENDING ON PTS D/C STATUS TODAY.
--- NOTE | 2018-07-29 15:52 | NUR ---
WOUND FOLLOW UP: PT. WAS SEEN TODAY BY WOUND CARE. PT. WOUND VAC THERAPY WAS RE-STARTED TODAY. PT. TOLERATED WELL. RECOMMENDATIONS: CONTINUE WITH CURRENT PLAN OF CARE. PT. AND STAFF NURSE WERE INSTRUCTED ON PLAN OF CARE.
[2018-07-29 15:57] VITALS: BP 102/60
--- NOTE | 2018-07-29 17:03 | NUR ---
HEARD FROM ADMISSIONS AT [facility] THIS AM AND THEY INDICATED THEY ARE STILL AWAITING AUTH. CM TO FOLLOW INDICATED WITH DC PLANNING.
[2018-07-29 20:00] VITALS: BP 105/65
[2018-07-30 04:03] VITALS: BP 95/60
--- NOTE | 2018-07-30 07:59 | NUR ---
ostomy care; pouch changed last richard but adapt ring not applied under wafer, pt requested new pouch, alyx cut to fit w/ adapt ring applied, stoma pink viable slightly budded w/ soft formed stool, peristomal skin intact, cooperative w/ care, supplies and info left at bs, will cont to follow prn
[2018-07-30 08:00] VITALS: BP 89/47
--- NOTE | 2018-07-30 08:58 | NUR ---
PROGRESS PT MORE RELAXED AND REASONABLE LAST NIGHT ABLE TO DISCUSS CARES AND TIMING AND NEED FOR STAFF TO ATTEND TO OTHER PTS ALSO, ASKED TO PLEASE NOT YELL OUT TO USE CALL LIGHT IF SHE NEEDS OR WANTS SOMETHING SHE WAS AGREEABLE TO PLAN, WOUND VAC INTACT SUCTION AT 125CM NO INDICATION OF LEAKING, CANNISTER CHANGED, PAIN CONTROLLED WITH HYDROCODONE AND TRAMADOL CONTINUE TO MONITOR PLAN TO DC SNF WHEN INSURANCE APPROVED
--- NOTE | 2018-07-30 10:14 | NUR ---
GALO LEFT MESSAGE WITH EYAD AT [facility] TO SEE IF AUTH HAS BEEN APPROVED FOR PT TO BE DC TO SNF AT [facility] [place], [place]
--- NOTE | 2018-07-30 10:18 | NUR ---
WOUND FOLLOW UP: PT. WAS SEEN TODAY BY DR. MANCIA AND MYSELF. PT. WOUND VAC IS C/D/I AT THIS TIME. THERE IS TALK OF PT. DISCHARGE SO, DISCHARGE PLANNING WAS DISCUSSED. RECOMMENDATIONS: CONTINUE WITH CURRENT PLAN OF CARE. PT. AND STAFF NURSE WERE INSTRUCTED ON PLAN OF CARE.
[2018-07-30 13:30] VITALS: BP 111/62
--- NOTE | 2018-07-30 14:47 | NUR ---
dp sent therapy updates to [facility] in [place], will follow up to ensure they receive.
[2018-07-30 19:10] VITALS: BP 109/67
--- NOTE | 2018-07-30 19:50 | NUR ---
ASSUMED CARE AT 0700. AXOX4. AWAITING PLACEMENT AND AUTH FOR A SNF. NO AUTH DAY. ISO FOR MRSA. WOUND CARE DOEN. NO S/S ACUTE DISTRESS NOTED OR REPORTED DURING THIS SHIFT.IV MEROPEMEM ADMIN. NO C/O PAIN TODAY. Q2 REPOSITION DONE.
[2018-07-31 04:56] VITALS: BP 109/65
[2018-07-31 07:28] VITALS: BP 104/62
--- NOTE | 2018-07-31 09:53 | NUR ---
PROGRESS PT SLEPT THROUGHOUT NIGHT REPOSITIONED MUCH POSSIBLE. WOUND VAC ALARMING COLLECTION CONTAINER REPLACED, FLUSHES STOPPED POSSIBLE LEAK TURNED TO VAC MODE AND REINFORCED DRAPE, DRAPE WAS WET AND STUCK TO CHUX PAD REINFORCEMENT WAS NOT EFFECTIVE , SPOKE TO WOUND CARE NURSE THIS AM PHYSICIAN AND WOUND CARE TEAM TO ROUND ON PATIENTS TODAY.
[2018-07-31] MEDS ORDERED: HYDROCODON-ACE1 EAC7 PO ×2 (11:58)
[2018-07-31] MEDS ORDERED: ENOXAPARIN30 MG/0.1 SUBQ ×2 (11:58)
[2018-07-31] MEDS ORDERED: TRAMADOL 50 MG50 MG PO ×2 (11:58)
[2018-07-31] MEDS ORDERED: ACIDOPHILUS1 EAC4 PO ×2 (11:58)
[2018-07-31] MEDS ORDERED: MIRALAX17 GM PO ×2 (11:58)
[2018-07-31] MEDS ORDERED: CYCLOBENZAPRINE5 MG PO ×2 (11:58)
[2018-07-31] MEDS ORDERED: ZINC SULFATE 2220 M1 PO ×2 (11:58)
[2018-07-31] MEDS ORDERED: METOPROLOL SUCC25 M1 PO ×2 (11:58)
--- NOTE | 2018-07-31 12:19 | NUR ---
WOUND FOLLOW UP: PT. WAS SEEN TODAY BY DR. POWER AND MYSELF. PT. WOUND VAC DRESSING WAS CHANGED TODAY. PT. TOLERATED WELL. PT. WOUND TO HER LEFT HEEL HAS RESOLVED. RECOMMENDATIONS: CONTINUE WITH CURRENT PLAN OF CARE. PT. AND STAFF NURSE WERE INSTRUCTED ON PLAN OF CARE.
--- NOTE | 2018-07-31 12:32 | NUR ---
CM RECIEVED NOTIFICATION THAT [facility] HAS GOTTEN INSURANCE AUTH FOR PT TO ADMIT THIS DAY. CM NOTIFIED PT. CHART COPY ORDERED AND ORDERS FAXED. REPORT TO BE CALLED TO . CM TO COMMUNICATE WITH FACILITY REGARDING TRANSPORT. CM TO FOLLOW INDICATED WITH DC PLANNING.
--- NOTE | 2018-07-31 15:44 | NUR ---
PRESCRIPTION WRITTEN FOR MEROPENEM 500 MG IVPB EVERY 8 HOURS X 4-[address] SANDOVAL TO MANAGE ANTIBIOTICS.
[2018-07-31 17:43] VITALS: BP 104/62
--- NOTE | 2018-07-31 17:44 | NUR ---
VSS-AFEBRILE. LUNGS CLEAR-ROOM AIR. REMOVED WOUND VAC AND REPLACED WITH WET TO DRY DRESSING FOR TRANSFER TO [facility]. REPORT CALLED TO ERIK. DISCUSSED ALL DC INSTRUCTIONS, PATIENT VERBALIZED UNDERSTANDING. SOME PERSONAL BELONGINGS AND PATIENTS WHEECHAIR LEFT FOR STAFF AT [facility] TO FLIGHT OPERATIONS COORDINATOR ON 08/01/18. THESE ITEMS HAVE HAD A NAME LABEL ON THEM, AND WILL BE SENT WITH SECURITY. OTHER BELONGINGS WERE SENT WITH PATIENT. LEFT ON CART WITH EMS. RIGHT UPPER ARM, SINGLE LUMEN PICC LEFT IN FOR CONTINUED ANTIBIOTIC THERAPY.
--- NOTE | 2018-08-01 11:23 | HC ---
[facility] [place] [address] CONSULTATION Name: NATALI UNGER Room #: 451-P [facility].#: [id number] Admission: 07/17/18 Attend Phys: Neil Tiwari MD Discharge: 07/31/18 Date of : 52 Report #: [id number] THIS REPORT FOR: //name// CC: Neil Pendleton DATE OF SERVICE: 07/18/2018 HISTORY OF PRESENT ILLNESS: The patient is a 67-year-old white female with lower extremity paraparesis. 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 She is chronically wheelchair bound. She has had problems with a nonhealing sacral pressure ulcer as well as heel wounds. Her caregiver advised her to come to [facility] for possible wound infection. She is to be seen by Surgery and Wound Care. We are seeing her in rehabilitation medicine consultation. She does already have a diverting colostomy. PAST MEDICAL HISTORY: As noted above. She has bilateral lower extremity paraparesis. She had prior history of dysphagia with PEG tube placement and removal, history of obesity, hypertension, hyperlipidemia, coronary artery disease, bilateral DVT, pulmonary embolism, and diverting colostomy. ALLERGIES: ERYTHROMYCIN, PENICILLIN, STATINS, AND COUMADIN PER LISTED ALLERGIES. MEDICATIONS: Please see the full medication listing. This includes vitamins, herbals, and supplements per report. SOCIAL HISTORY: She lives in an apartment alone, premorbidly wheelchair bound. She has a manual wheelchair. She has been receiving private duty with [facility] and they come over in the morning between 8-9 and then in the evening from 8-9. There is a [employer] lift that is utilized to get her in and out of bed. There is a girlfriend that comes over often. A son buy her groceries. The patient is unable to transfer on her own. She has been in a manual wheelchair to this standpoint. She notes that she now has a powered wheelchair, which does have a tilt back mechanism per her history. REVIEW OF SYSTEMS: Did not offer any current complaints of chest pain, shortness of breath, and abdominal discomfort. PHYSICAL EXAMINATION: GENERAL: A 67-year-old white female, in no obvious distress. HEENT: Appeared to be benign. VITAL SIGNS: Last recorded temperature 99.5, pulse 77, respirations 18, blood pressure 110/61. NEUROLOGIC: Cranial nerves grossly intact. The [place] [address] CONSULTATION Name: NATALI UNGER Joel Room #: 451-P [facility]#: [id number] Admission: 07/17/18 Attend Phys: Neil Tiwari MD Discharge: 07/31/18 Date of : 52 Report #: [id number] symmetric. She has functional range of motion of both upper extremities. Strength is grade 4-/5. DTRs are trace to 1. She is lying in bed with bilateral hips and knees flexed. I did not examine her buttock/sacral ulcer. Lower extremities had decreased tone. She does have some limited gross movement of both lower extremities, probably a grade 2+ at the hips and extending the knees. No movement distally bilaterally. She has decreased sensation distally bilaterally to proprioception. ASSESSMENT: A 67-year-old white female with the following problem list: 1. Bilateral lower extremity dense paraparesis. 2. Nonhealing sacral pressure ulcer. 3. Heel wounds. 4. Status post diverting colostomy. 5. Hypertension. 6. Chronic elevated LFTs. 7. History of deep venous thrombosis and pulmonary embolism with inferior vena cava filter. 8. History of duodenal ulcer with perforation. PLAN: While physical therapy assess her and work on bilateral lower extremity passive and active assisted range of motion, proper positioning issues education. With her receiving the powered wheelchair with the tilt back mechanism. This could certainly be of benefit to her as far as off awaiting her sacral pressure ulcer. I do not see that the patient would meet criteria for an acute [address] [place] [address] Inpatient Rehabilitation stay. We will need to see what surgery/wound care have to say. I discussed with her more realistic expectations as she is hoping she can walk again, which appears extremely unlikely at this point. I discussed with her, trying to maximize her functional abilities within her current stay. Hopefully, she will be able to return back to the home setting with increased assistance and use of the tilt back wheelchair, which will help off weight her pressure ulcer. On the other hand, she may need more assistance such as she is in a skilled level regarding further care of her pressure ulcers. We will need to defer to wound care in that regard. We will be glad to follow along with you while she is here at [place]. <ELECTRONICALLY SIGNED> By: Sage Lei MD 08/01/18 1123 [id number] Sage Lei MD /[facility]
--- NOTE | 2018-08-13 15:20 | O ---
[facility] [place] [address] OPERATIVE REPORT Name: NATALI UNGER Room #: 451-P [facility]..#: [id number] Admission: 07/17/18 Attend Phys: Neil Tiwari MD Discharge: 07/31/18 Date of : 52 Report #: [id number] THIS REPORT FOR: //name// CC: Neil Pendleton DATE OF SERVICE: 07/19/2018 PREOPERATIVE DIAGNOSIS: Stage 4 sacral decubitus wound. POSTOPERATIVE DIAGNOSIS: Stage 4 sacral decubitus wound. PROCEDURES: 1. Excisional debridement of skin, subcutaneous tissue, muscle and bone of a stage 4 sacral decubitus wound ultimately measuring 17.5 x 14 cm in dimension (245 square cm). Preoperative wound measurements were 15 x 10 cm in dimension with periwound necrosis and gross infection. 2. Application of Interfyl (1.5 mL x 2 applications). SURGEON: Tejas Nowak MD. PHP CONSULTANT: Medical student. ANESTHESIA: General endotracheal anesthesia. ESTIMATED BLOOD LOSS: Minimal (less than 20 mL). COMPLICATIONS: None appreciated. SPECIMENS: All excised tissue to pathology including bone to microbiology for aerobic and anaerobic culture and sensitivity. INDICATIONS: The patient is a 67-year-old female with a longstanding history of stage 4 sacral decubitus wound, who has undergone numerous debridements in the past and now shows evidence of gross infection and worsening decubitus wound due to her underlying immobility. As such, indication was for the above-mentioned procedures today. DESCRIPTION OF PROCEDURE: After explaining the risks, benefits, alternatives of the procedure and obtaining consent, the patient was brought to the operating room, supine on her hospital bed. After conducting a thorough timeout procedure verifying correct patient and procedure, the patient was given general endotracheal anesthesia. Once adequate anesthesia was obtained, her SCDs were hooked up to pneumatic compression device. She was given a preoperative dose of antibiotics in line of SCIP protocol. The patient's SCDs were then hooked up to pneumatic compression device. She was positioned on the operating room table in [address] [address] OPERATIVE REPORT Name: NATALI UNGER Room #: 451-P [facility]..#: [id number] Admission: 07/17/18 Attend Phys: Neil Tiwari MD Discharge: 07/31/18 Date of : 52 Report #: [id number] the prone position with all pressure points appropriately padded. The patient's sacral wound was now prepped and draped in standard surgical sterile fashion. Electrocautery was used to circumferentially debride all nonviable skin, subcutaneous tissue and muscle from the periphery of the wound taking it back to healthy bleeding tissue. Hemostasis was assured with electrocautery. The wound was then carried to the depths which took this all the way to bone with soft spongy bony cortex which was removed with rongeurs and passed off the field for microbiologic analysis. The Aerobonix ultrasonic debridement tool was now used to remove all remaining nonviable tissue as well as any biofilm present in the bed of the wound. Hemostasis was again assured with electrocautery. I then applied a total of 3 mL of the Interfyl into the wound bed for assistance with ongoing wound healing. The wound was then dressed with Adaptic, 4 x 4s, ABDs and Medipore tape completing the procedure. At the end of the procedure, all instrument, needle and sponge counts were correct. The patient tolerated the procedure without incident, was awakened in the operating room, transitioned to the recovery room in stable condition with no apparent complications. <ELECTRONICALLY SIGNED> By: Tejas Nowak MD, FACS 08/13/18 1520 0716 0801 Tejas Nowak MD, FACS /nt
== END 2018-07-31 17:35 | DRG 853 ==
LOC: ER 10:46 → EROBS 12:52 → 4W 12:52
PROVIDERS: Emergency Medicine; Hospitalist; Internal Medicine; Internal Medicine Infectious Disease; ADMIT Hospitalist
PROC: 0QB10ZZ Excision of Sacrum, Open Approach (ICD-10-PCS; principal; 2018-07-19)
DX: A41.9 Sepsis, unspecified organism (principal); L89.154 Pressure ulcer of sacral region, stage 4; E43 Unspecified severe protein-calorie malnutrition; G82.20 Paraplegia, unspecified; L97.429 Non-pressure chronic ulcer of left heel and midfoot with unspecified severity; L97.419 Non-pressure chronic ulcer of right heel and midfoot with unspecified severity; M46.28 Osteomyelitis of vertebra, sacral and sacrococcygeal region; I50.32 Chronic diastolic (congestive) heart failure; I25.10 Atherosclerotic heart disease of native coronary artery without angina pectoris; L89.322 Pressure ulcer of left buttock, stage 2; E66.9 Obesity, unspecified; M19.90 Unspecified osteoarthritis, unspecified site; E78.5 Hyperlipidemia, unspecified; F43.23 Adjustment disorder with mixed anxiety and depressed mood; G31.84 Mild cognitive impairment of uncertain or unknown etiology; R45.4 Irritability and anger; Z66 Do not resuscitate; M35.3 Polymyalgia rheumatica; I95.9 Hypotension, unspecified; I11.0 Hypertensive heart disease with heart failure; F32.9 Major depressive disorder, single episode, unspecified; L89.312 Pressure ulcer of right buttock, stage 2; I73.9 Peripheral vascular disease, unspecified; D63.8 Anemia in other chronic diseases classified elsewhere; Z86.718 Personal history of other venous thrombosis and embolism; Z86.711 Personal history of pulmonary embolism; Z93.3 Colostomy status; Z79.899 Other long term (current) drug therapy; Z68.30 Body mass index [BMI] 30.0-30.9, adult; Z88.1 Allergy status to other antibiotic agents; Z88.0 Allergy status to penicillin; Z88.8 Allergy status to other drugs, medicaments and biological substances; Z91.19 Patient's noncompliance with other medical treatment and regimen; Z98.891 History of uterine scar from previous surgery; Z86.14 Personal history of Methicillin resistant Staphylococcus aureus infection; Z79.1 Long term (current) use of non-steroidal anti-inflammatories (NSAID); Z95.5 Presence of coronary angioplasty implant and graft
CPT/HCPCS: 10045; 10047; 27000; 50010; 50101; 50386; 50403; 57192; 62110; 62900; 70005

== ENCOUNTER → 2018-08-12 | Outpatient (CLI) | payer OTHER ==
[~2018-08-12] MED LIST changes: +ACIDOPHILUS1 EAC4 PO; +ASPIRIN81 M2 PO; +CLARITIN10 MG PO; +COLACE100 MG PO; +CYCLOBENZAPRINE5 MG PO; +ENOXAPARIN30 MG/0.1 SUBQ; +HYDROCODON-ACE1 EAC7 PO; +LIORESAL 10 MG10 MG PO; +METOPROLOL SUCC25 M1 PO; +ZINC SULFATE 2220 M1 PO
== END ==
LOC: HYPER 07-24 09:45
DX: L89.154 Pressure ulcer of sacral region, stage 4 (principal); L89.623 Pressure ulcer of left heel, stage 3; L89.613 Pressure ulcer of right heel, stage 3; I25.2 Old myocardial infarction; K21.9 Gastro-esophageal reflux disease without esophagitis; Z93.3 Colostomy status

== ENCOUNTER → 2018-09-10 | Outpatient (CLI) | payer OTHER | LOC: HYPER 07:07 | DX: L89.154 Pressure ulcer of sacral region, stage 4 (principal); L89.623 Pressure ulcer of left heel, stage 3; L89.613 Pressure ulcer of right heel, stage 3; B36.9 Superficial mycosis, unspecified; I25.2 Old myocardial infarction ==

== ENCOUNTER → 2018-09-24 | Outpatient (CLI) | payer OTHER, SELFPAY | LOC: HYPER 07:13 | DX: L89.154 Pressure ulcer of sacral region, stage 4 (principal); B36.9 Superficial mycosis, unspecified; E66.9 Obesity, unspecified; I25.2 Old myocardial infarction; K21.9 Gastro-esophageal reflux disease without esophagitis; M62.81 Muscle weakness (generalized); Z68.38 Body mass index [BMI] 38.0-38.9, adult ==

== ENCOUNTER 2018-09-30 18:09 | Inpatient (IN) | payer OTHER ==
[~2018-09-30] VITALS: Ht 162.6 cm; Wt 82.9 kg
--- NOTE | 2018-09-30 18:13 | NUR ---
UPON ARRIVAL TO ER PT STATES THAT SHE NEEDS "BOOTS" (TO HELP FLOAT HER HEELS) AND A LIDOCAINE PATCH. PT UPDATED THAT NEITHER ARE READILY AVAILABLE IN THE ER BUT THAT THERE WOULD BE INQUIRY ABOUT THEM WITH APPROPRIATE CHANNELS
[2018-09-30] MEDS ORDERED: REGLAN 10 MG TA10 MG PO (18:17)
[2018-09-30] MEDS ORDERED: VITAMINC500 PO (18:17)
[2018-09-30] MEDS ORDERED: NEURONTIN 300300 M1 PO (18:18)
[2018-09-30 18:43] LABS: HEMATOCRIT 30.4 % (37.0-47.0); HEMOGLOBIN 10.3 gm/dL (12.0-15.0); MCH 28.7 pg (26.0-34.0); MCHC 33.7 g/dL (28.0-37.0); MCV 84.9 fL (80.0-100.0); PLATELET COUNT 395 thou/uL (150-400); RBC 3.58 mil/uL (4.20-5.00); RDW 17.8 % (10.5-14.5); WBC 14.3 thou/uL (4.0-11.0)
--- NOTE | 2018-09-30 19:10 | NUR ---
PATIENT YELLING OUT. WAS ROTATED TO RIGHT SIDE.
[2018-09-30 19:24] LABS: ABSOLUTE NEUTROPHILS 9.9 thou/uL (1.4-8.2); ANISOCYTOSIS 1+; ATYPICAL LYMPHS 1 %; POLYCHROMASIA OCCASIONAL
--- NOTE | 2018-09-30 20:53 | NUR ---
ALL EQUIPMENT OBTAINED TO APPLY WOUND VAC. UNIT MANGER HERE. STATES WE CANNOT APPLY WOUND VAC. STATES WET TO DRY DRESSING AND WOUND CARE CONSULT
[2018-09-30 21:03] LABS: CALCIUM 9.1 mg/dL (8.5-10.1); CREATININE 1.5 mg/dL (0.6-1.0); TOTAL BILIRUBIN 0.7 mg/dL (<0.1-1.0)
[2018-09-30 21:07] LABS: POTASSIUM 2.5 mmol/L (3.5-5.1)
--- NOTE | 2018-09-30 21:38 | NUR ---
HEEL PROTECTOR BOOTS PLACED TO BILATERAL HEELS AT PATIENT REQUEST
[2018-09-30 22:27] VITALS: BP 101/58
[2018-09-30 22:30] LABS: URINE BILIRUBIN NEGATIVE (Negative); URINE BLOOD 2+ (Negative); URINE CLARITY CLOUDY; URINE COLOR YELLOW; URINE GLUCOSE-RANDOM* NEGATIVE (Negative); URINE KETONES NEGATIVE (Negative); URINE LEUKOCYTES 3+ (Negative); URINE NITRITE NEGATIVE (Negative); URINE PROTEIN (DIPSTICK) 2+ (Negative); URINE SPECIFIC GRAVITY 1.015 (1.005-1.035); URINE UROBILINOGEN 0.2 E.U./dl (0.2-1.0)
[2018-09-30 22:41] LABS: BACTERIA >30 Many /HPF (None Seen); CASTS None Seen /LPF (None Seen); MUCUS None Seen strn/LPF (None Seen); SQUAMOUS None Seen /LPF (0-3); TRIPLE PHOSPHATE CRYSTALS 4-10 Moderate /LPF (None Seen); URINE WBC >25 Many /HPF (0-5)
[2018-09-30 22:42] LABS: CRYSTALS None Seen /LPF (None Seen)
[2018-09-30 23:37] VITALS: BP 89/36
[2018-09-30 23:53] VITALS: BP 102/52
[2018-10-01 03:07] LABS: HEMATOCRIT 28.7 % (37.0-47.0); HEMOGLOBIN 9.6 gm/dL (12.0-15.0); MCH 28.7 pg (26.0-34.0); MCHC 33.5 g/dL (28.0-37.0); MCV 85.9 fL (80.0-100.0); RBC 3.35 mil/uL (4.20-5.00); RDW 17.4 % (10.5-14.5); WBC 11.1 thou/uL (4.0-11.0)
[2018-10-01 03:15] LABS: CALCIUM 8.9 mg/dL (8.5-10.1); CREATININE 1.3 mg/dL (0.6-1.0)
[2018-10-01 03:18] LABS: POTASSIUM 2.7 mmol/L (3.5-5.1)
[2018-10-01 04:20] VITALS: BP 102/53
--- NOTE | 2018-10-01 05:14 | NUR ---
Pt came up from ED approx 2245. Pt anxious and agitated. Q2h turn. IVF and antibiotics administered. NPO after midnight. Lab called with critical potassium of 2.7. Client Care Manager on duty notified. IV potassium ordered. Pt screaming, stating her IV site is hurting a lot. Potassium infusing lowered to 10ml/hr, it is the only rate the pt can tolerate. Pt states she has a headache 01/22. Client Care Manager on duty notified. New orders noted. Chronic barakat catheter and colostomy in place. Fall precautions in place. Call light within reach.
--- NOTE | 2018-10-01 13:51 | NUR ---
Nutrition: Pt admitted and seen for nonhealing sacral wound s/p debridement of stage 4 sacral p/u in July. Medications include vitamin C, multivitamin, sodium hypochlorite. K+ 2.7, Albumin 2.0. Wt stable at 180-182 lbs x5 months. Appetite good, intake 100%. Communicated understanding of protein importance for wound healing. Physician indicated sarcopenia and PCM, defer. Pt requested Brett, will order. Otherwise low nutrition risk.
--- NOTE | 2018-10-01 16:35 | NUR ---
WOUND CONSULT: PT. WAS SEEN TODAY BY DR. MANCIA AND MYSELF. PT. IS WELL KNOWN TO THE WOUND CARE TEAM. PT. HAS A CHRONIC STAGE 4 PRESSURE ULCER TO HER SACRUM, DEEP TISSUE INJURY TO HER LEFT HEEL AND A STAGE 2 LEFT MEDIAL CALF. THE STAGE 4 PRESSURE ULCER IS IN NEEDED OF SURGICAL INTERVENTION. RECOMMENDATIONS: WOUND CARE TO LEFT MEDIAL CALF AND LEFT HEEL: GENTLY CLEANSE WITH WOUND CLEANSER OR NORMAL SALINE, COVER WITH OPTIFOAM BORDER, COMPLETE CARES DAILY AND PRN SOILAGE. WOUND CARE TO SACRUM: GENTLY CLEANSE AREA WITH WOUND CLEANSER OR NORMAL SALINE, PACK WITH DAKIN MOIST KERLIX, COVER WITH ABD, SECURE WITH TAPE, COMPLETE CARES BID. TURN Q2 HOURS KEEP PT. OFF WOUNDS MUCH POSSIBLE KEEP ON HARRY MATRESS. PT. AND STAFF NURSE WERE INSTRUCTED ON PLAN OF CARE.
[2018-10-01 16:56] VITALS: BP 82/41
--- NOTE | 2018-10-01 17:11 | NUR ---
INITIAL ASSESSMENT: CINDY reviewed chart and spoke with nursing and attending physician. Pt was admitted from home due to nonhealing sacral wound. Wound care consulted. Pt will have wound vac placed. CINDY met with pt at bedside. Introduced role of SW. Pt is alert/orientated x 4. Pt states she lives alone in an apt at [facility]. Pt states she has HH coming to her apt, but is unsure of HH agency. Pt was discharged from [facility] to [facility] on 07/31. Pt states she left [facility] last week. Pt requests SW contact her dtr, Amina ([phone]) to discuss discharge plan. SW spoke with Amina via phone. Amina states that [facility] contacted her today to discuss pt getting additional help at home. Per Amina, Renzo may contact APS due to concerns with pt being alone in her apt and calling EMS frequently. Amina requests to speak with SW tomorrow to discuss plan. Amina states that pt has mentioned that she would apply for [place] Medicaid. SW explained that in the past, pt has been reluctant to do so and that she will need to apply for Medicaid in order to go into a jail care facility. Pt's dtr is aware and states that pt should hopefully be agreeable. Pt does have a trust that she has had in place for many years. Per Amina, pt was supposed to have a wound vac delivered on Sunday and be placed by HH. Amina is unsure of HH agency. Amina to have pt's nurse contact SW tomorrow afternoon when she is at the hospital. Pt's PCP is Dr. Mara Pendleton. Pt's dtr states that pt will be agreeable with placement. CINDY spoke with Carley at [facility]. Pt was at [facility] from 07/31/18-09/26/18. Carley was unsure which HH was arranged for pt. Pt will need post-acute placement at time of discharge. CINDY is following to assist as needed with discharge planning.
--- NOTE | 2018-10-01 18:30 | NUR ---
PT ASSESSED THIS AM. IN GOOD SPIRITS. PLAN FOR I&D OF SACRAL WD ON SUNDAY PER DR. CORONA. WOUND CARE IN TODAY AND DRESSED WOUNDS. PT TURNED Q2HRS. EATING AND DRINKING WELL. NO C/O PAIN.
[2018-10-01 19:42] VITALS: BP 93/44
--- NOTE | 2018-10-02 03:58 | NUR ---
ASSUMED PT CARE 1899. PT ALERT AND ORIENTED. IV DRESSING C/D/I, NO SIGNS OF INFILTRATION. VSS. PT DENIES PAIN, N/V AT THIS TIME. PT CALL LIGHT AND PERSONAL BELONINGS WITHIN REACH. WILL CONTINUE POC UNTIL EOS.
[2018-10-02 04:25] VITALS: BP 95/51
[2018-10-02 07:50] VITALS: BP 110/60
[2018-10-02 13:39] LABS: HEMOGLOBIN 9.6 gm/dL (12.0-15.0); MCH 28.6 pg (26.0-34.0)
[2018-10-02 13:40] LABS: HEMATOCRIT 29.1 % (37.0-47.0); MCHC 32.9 g/dL (28.0-37.0); MCV 87.1 fL (80.0-100.0); RBC 3.35 mil/uL (4.20-5.00); RDW 17.6 % (10.5-14.5); WBC 13.7 thou/uL (4.0-11.0)
[2018-10-02 13:47] LABS: CALCIUM 8.8 mg/dL (8.5-10.1); CREATININE 1.2 mg/dL (0.6-1.0); MAGNESIUM 1.7 mg/dL (1.8-2.4); POTASSIUM 4.7 mmol/L (3.5-5.1)
--- NOTE | 2018-10-02 16:17 | HC ---
[facility] [place] [address] CONSULTATION Name: NATALI UNGER Room #: 422-P [facility] .R.#: [id number] Admission: 09/30/18 ������������������ Attend Phys: Elsi Briceño Discharge: ������������������ Date of : 52 Report #: [id number] THIS REPORT FOR: //name// CC: Elsi Peters DATE OF SERVICE: 10/01/2018 INFECTIOUS DISEASE CONSULTATION REASON FOR CONSULTATION: I was asked to evaluate concerning sacral decubitus and coccygeal osteomyelitis. HISTORY OF PRESENT ILLNESS: The patient is a 67-year-old that is [place] [facility] with increased drainage from her known sacral decubitus. This wound has been present since December. She has underlying rheumatoid arthritis and spinal hemorrhage resulting in paraparesis in 2016. She has had multiple hospitalizations. Her most recent hospital stay was in 07/2018. Her cultures from her wound revealed Bacteroides. She has undergone several debridements and a diverting colostomy. CT scan at that time showed evidence of coccygeal osteomyelitis. She has undergone wound care with a wound VAC. This was removed several days ago. Denies any fever, chills or sweats. She is now presenting for further debridement and antibiotic therapy. PAST MEDICAL AND SURGICAL HISTORY: Rheumatoid arthritis, hypertension, hyperlipidemia, coronary artery disease, congestive heart failure, DVT, obesity, spinal hemorrhage, paraplegia, elbow fracture, , coronary artery angioplasty, perforated peptic ulcer, IVC filter and colostomy. FAMILY HISTORY: Noncontributory. SOCIAL HISTORY: Nonsmoker, no significant alcohol intake. ALLERGIES: Allergic to PENICILLIN, STATINS, ERYTHROMYCIN and COUMADIN. MEDICATIONS: As noted on her MAR including vancomycin and cefepime. REVIEW OF SYSTEMS: Denies any cough, sputum, nausea, vomiting, diarrhea. She has indwelling Avery catheter. A 10-point review of systems was otherwise negative other than what is described above. PHYSICAL EXAMINATION: VITAL SIGNS: Afebrile and hemodynamically stable. GENERAL: She was obese, alert, appeared her stated age. HEENT: Eyes: Without scleral icterus. Mouth without mucositis. [facility] [address] [place] [address] CONSULTATION Name: NATALI UNGER Room #: 422-P [facility] [place] .R.#: [id number] Admission: 09/30/18 ������������������ Attend Phys: Elsi Briceño Discharge: ������������������ Date of : 52 Report #: [id number] NECK: Supple. LUNGS: Clear. HEART: Regular without murmur. ABDOMEN: Soft and obese. Colostomy site was unremarkable with soft stool in the bag. GENITOURINARY: External genitalia unremarkable with indwelling Avery catheter. Sacral wound was very large and deep. Bone was exposed, very close to the anus. Paraplegic. Cranial nerves intact. Mood normal. LABORATORY STUDIES: Sodium 136, potassium 2.7, bicarbonate 23, creatinine 1.3, alkaline phosphatase 303 and ALT 72. Hemoglobin 9.6, white count 11.1, platelet count 373,000. Urinalysis with wbc's and bacteria. IMPRESSION: 1. Extensive sacral wound with underlying osteomyelitis. 2. Paraplegia. 3. Hypertension. 4. Coronary artery disease. 5. Previous deep venous thrombosis with IVC filter. 6. History of duodenal ulcer with perforation. RECOMMENDATION: We will continue with broad antibiotic coverage and obtain deep tissue cultures. Surgical evaluation for debridement. Continue with offloading. ��������������������������������������������� <ELECTRONICALLY SIGNED> ���������������������������������������� By: Juan David Delgado MD ��������������������������������������������� 10/02/18 1617 1742 [id number] Juan David Delgado MD /nt
[2018-10-02 17:17] VITALS: BP 96/60
--- NOTE | 2018-10-02 17:23 | NUR ---
WOUND FOLLOW UP: PT. WAS SEEN TODAY BY DR. MANCIA AND MYSELF. PT. STATED THAT SHE SHOULD GO TO SURGERY TOMORROW FOR DEBRIDEMENT OF SACRAL WOUND. RECOMMENDATIONS: CONTINUE WITH CURRENT PLAN OF CARE. PT. AND STAFF NURSE WERE INSTRUCTED ON PLAN OF CARE.
[2018-10-02 19:30] VITALS: BP 114/65
--- NOTE | 2018-10-03 04:27 | NUR ---
ASSUMED PT CARE 1899. PT ALERT AND ORIENTED, FORGETFUL. REASSESSMENT COMPLETE. VSS. CONTINUED Q2 TURNS. PT DENIES N/V. REPORTS SEVERE PAIN, SEE EMAR. IV DRESSING C/D/I, NO SIGNS OF INFILTRATION. WOUND DFRESSING D/I. WILL CONTINUE POC UNTIL EOS.
[2018-10-03 05:43] LABS: HEMATOCRIT 30.2 % (37.0-47.0); MCH 28.9 pg (26.0-34.0); MCHC 33.3 g/dL (28.0-37.0); MCV 86.9 fL (80.0-100.0); RBC 3.47 mil/uL (4.20-5.00); RDW 17.7 % (10.5-14.5); WBC 10.5 thou/uL (4.0-11.0)
[2018-10-03 05:50] VITALS: BP 107/49
[2018-10-03 06:41] LABS: CALCIUM 9.3 mg/dL (8.5-10.1); CREATININE 1.1 mg/dL (0.6-1.0); MAGNESIUM 1.6 mg/dL (1.8-2.4); POTASSIUM 4.4 mmol/L (3.5-5.1)
[2018-10-03 08:34] VITALS: BP 122/70
--- NOTE | 2018-10-03 10:58 | NUR ---
PT A&OX4, IV INTACT IN L FA. NON AMB. PARA. PT MOANING WITH BACK TODAY. NPO FOR SURGERY TODAY. IV FENTYNL GIVEN FOR PAIN, WOUND TO SACRAL CHANGED. CONSENT FOR SURGERY OBTAINED. WILL CONT POC.
--- NOTE | 2018-10-03 14:00 | NUR ---
DC ORDERS RECEIVED. DC INSTRUCTIONS AND FOLLOW UP APPOINTMENT REVIEWED WITH PT. SCRIPTS GIVEN TO PT PRIOR TO AMISSION. IV REMOVED FROM R HAND BY BASEBALL PLAYER, PT WAITING FOR WALKER AT THIS TIME.
--- NOTE | 2018-10-03 15:06 | NUR ---
WOUND FOLLOW UP: PT. WAS SEEN TODAY BY DR. MANCIA AND MYSELF. PT. IS ON HER WAY TO HAVE HER SUGICAL DEBRIDEMENT TODAY. PT. IS IN GOOD SPIRITS. RECOMMENDATIONS: CONTINUE WITH CURRENT PLAN OF CARE. PT. AND STAFF NURSE WERE INSTRUCTED ON PLAN OF CARE.
[2018-10-03 17:24] VITALS: BP 137/58
--- NOTE | 2018-10-03 17:28 | NUR ---
PT HAD SACRAL DEBRIDEMENT DONE TODAYL. THERAPIES HAVE BEEN ORDERED & AWAITING THEIR REC.
--- NOTE | 2018-10-03 17:34 | NUR ---
PT RETURNED TO ROOM 422. SACRAL DRSG D/I. VSS. PT STARTED MOANING/ CRYING W/I 5 MIN OF RETURNING TO ROOM FOR WATER, ECT. ALL PTS CALLS BEING ANSWERED CALL LIGHT IS W/I REACH.
[2018-10-03 19:51] VITALS: BP 115/70
--- NOTE | 2018-10-04 03:19 | NUR ---
ASSUMED CARE AT 1900, ASSESSMENT COMPLETED. PT CALLING OUT FREQUENTLY, OFTEN INCOHERENT OR BABBLING WITH POOR FOCUS, TALKS ABOUT HER "TEETH HAVE SHIFTED AND MOVED SINCE THE LITTLE MEN FIXED THEM STRAIGHT." PT HAS CALLED ON THE LIGHT AND YELLED FROM BED MULTIPLE TIMES BECAUSE SHE CAN'T FIGURE OUT HER CELL PHONE, SHE LOST THE CALL LIGHT (WHICH SHE WAS HOLDING IN HER HAND), OR FOR OTHER UNCLEAR NEEDS. DENIES NAUSEA OR SOB. C/O PAIN IN BACK AND LEGS, SPASTIC MOVEMENT IN LEGS. SACRAL DRESSING INTACT, NO DRAINAGE NOTED. BP SLIGHTLY LOW THIS AM. NO OTHER CONCERNS, WILL CONTINUE TO MONITOR.
[2018-10-04 03:24] VITALS: BP 88/44
[2018-10-04 03:51] LABS: CALCIUM 8.8 mg/dL (8.5-10.1); CREATININE 1.1 mg/dL (0.6-1.0); MAGNESIUM 2.1 mg/dL (1.8-2.4); POTASSIUM 4.1 mmol/L (3.5-5.1)
[2018-10-04 04:40] LABS: HEMATOCRIT 28.8 % (37.0-47.0); HEMOGLOBIN 9.8 gm/dL (12.0-15.0); MCH 29.3 pg (26.0-34.0); MCHC 34.1 g/dL (28.0-37.0); MCV 86.1 fL (80.0-100.0); RBC 3.34 mil/uL (4.20-5.00); RDW 17.5 % (10.5-14.5); WBC 10.1 thou/uL (4.0-11.0)
[2018-10-04 07:48] VITALS: BP 95/51
--- NOTE | 2018-10-04 11:06 | HC ---
[facility] [place] [address] CONSULTATION Name: NATALI UNGER Room #: 422-P [facility] IN M.R.#: [id number] Admission: 09/30/18 ������������������ Attend Phys: Elsi Briceño Discharge: ������������������ Date of : 52 Report #: [id number] THIS REPORT FOR: //name// CC: Elsi Peters DATE OF SERVICE: 10/01/2018 CLINICAL IMPRESSION: Stage 4 pressure ulceration to the sacrum. HISTORY OF PRESENT ILLNESS: This is a 67-year-old female with whom I am familiar from multiple hospitalizations. She has had a history of stage 4 pressure ulceration and is paraplegic following a spinal hemorrhage. The patient was living at a nursing care facility, was noted to have worsening drainage and odor from the sacral region. She was admitted to the hospital for further evaluation and treatment. PAST MEDICAL HISTORY: The patient's past medical history is significant for a history of hyperlipidemia, hypertension, paraplegia, long-standing persistent sacral pressure ulceration and some history of noncompliance with offloading. She has had previous diverting colostomy and multiple previous surgical debridements. She has known history of coronary artery disease. SOCIAL HISTORY: The patient denies alcohol or tobacco use. FAMILY HISTORY: Unknown as she is adopted. ALLERGIES: THE PATIENT'S ALLERGIES INCLUDE ERYTHROMYCIN, PENICILLIN, STATINS AND COUMADIN. MEDICATIONS: The patient's current medications include acetaminophen, Flexeril, metoprolol, hydrocodone, Lactobacillus acidophilus, metoclopramide, gabapentin, aspirin, baclofen and Protonix. REVIEW OF SYSTEMS: CONSTITUTIONAL: The patient denies fever, chills or weight loss. NEUROLOGIC: The patient denies focal weakness, other than her paraplegia. ENT: The patient denies earache, nasal drainage or sore throat. CARDIOVASCULAR: The patient denies chest pain, palpitations or diaphoresis. PULMONARY: The patient denies cough or shortness of breath. GASTROINTESTINAL: The patient denies nausea, vomiting, diarrhea or abdominal pain. ORTHOPEDIC: The patient is aware of the ulceration on the sacrum. Other systems in a 14-point review of systems are negative. [facility] [address] [place] [address] CONSULTATION Name: NATALI UNGER Room #: 422-P [facility] IN ..#: [id number] Admission: 09/30/18 ������������������ Attend Phys: Elsi Briceño Discharge: ������������������ Date of : 52 Report #: [id number] PHYSICAL EXAMINATION: VITAL SIGNS: At this time include temperature 36.6, pulse 87, respiratory rate of 18 and blood pressure of 93/44. GENERAL: This is a chronically ill-appearing female patient who appears to be in no distress. HEENT: Head normocephalic. Nose and throat are clear. NECK: Supple. LUNGS: Clear. ABDOMEN: Soft. Bowel sounds present. Colostomy noted. SKIN: Examination of the sacral region demonstrates a very large sacral pressure ulceration. It is deep. Bone is palpable. There is some odor and drainage. There is fairly good granulation tissue as well. EXTREMITIES: Lower extremities demonstrate a blister, stage 2 type pressure ulceration to the left medial lower leg. NEUROLOGIC: The patient is paraplegic. She is alert, oriented and appropriate. LABORATORY DATA: Sodium 136, potassium 2.7, chloride 103, CO2 of 23, BUN 28 and creatinine 1.3. C-reactive protein is 176.3. White blood cell count 11.1 with hemoglobin of 9.6. CLINICAL IMPRESSION: 1. Stage 4 sacral pressure ulceration. 2. Presumed sacral osteomyelitis. 3. Stage 2 pressure ulceration to the left medial lower leg. 4. 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 5. History of noncompliance. RECOMMENDATIONS: At this point in time, the patient would benefit from surgical debridement of the sacral ulceration, possible placement of a skin substitute. We will recommend Dakin's moist gauze for the short term and likely return to a wound VAC when she has had appropriate debridement. She will need a bordered foam to the left medial lower leg. She will need low air loss mattress, q. 2-hour turning and repositioning and aggressive nutritional support. 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 Compliance with offloading is alfaro here as well as nutritional support. I appreciate being asked to see her in consultation. ��������������������������������������������� <ELECTRONICALLY SIGNED> ���������������������������������������� By: Delano Castaneda MD ��������������������������������������������� 10/04/18 1106 [id number] 1037 Delano Castaneda MD /nt
--- NOTE | 2018-10-04 12:28 | NUR ---
FAXED REFERRAL TO [facility] SPOKE WITH BRANDON IN ADM. SHE WILL REVIEW REFERRAL. PT. HAS BEEN AT THEIR FACILITY BEFORE. DCP TO FOLLOW.
--- NOTE | 2018-10-04 13:57 | NUR ---
CONSULTED TO PLACE A LINE FOR A PATIENT DISCHARGING WITH HOME IV ANTIBIOTICS. ORDER AND CONSENT NOTED. THE PROCEDURE WELL BENIFITS AND RISK FOR DVT AND INFECTION DISCUSSED AND SHE VERBALIZED UNDERSTANDING. THE LEFT UPPER ARM BRACHIAL WAS WIDLEY PATENT. A #4F SINGLE LUMEN POWER PICC WAS PLACED PER HOSPITAL POLICY AFTER A BEDSIDE TIMEOUT WAS COMPLETE. PICC WAS TRIMMED TO 47CM AND ADVANCED WITHOUT DIFFICULTY. A STAT CHEST XRAY CONFIRMED LINE IN CORRECT POSITION FOR USE
--- NOTE | 2018-10-04 14:21 | NUR ---
WOUND FOLLOW UP: PT. WAS SEEN TODAY BY DR. MANCIA AND MYSELF. PT. HAD SURGICAL DEBRIDEMENT OF SACRAL WOUND YESTERDAY. WOUND BED IS HEALTHY IN APPEARENCE TODAY. WOUND VAC WAS APPLIED AND PT. TOLERATED PROCEDURE WELL. RECOMMENDATIONS: CONTINUE WITH CURRENT PLAN OF CARE. PT. AND STAFF NURSE WERE INSTRUCTED ON PLAN OF CARE.
--- NOTE | 2018-10-04 14:50 | NUR ---
THIS NURSE AND WOUND CARE NURSE TOOK POST DEBRIDEMENT PICTURES AND THEN WOUND CARE NURSE TO PUT ON WOUND VAC. CONTINOUS AT 125.
[2018-10-04 16:30] VITALS: BP 108/63
--- NOTE | 2018-10-04 17:11 | NUR ---
Attempted to meet with the pt to discuss dc planning efforts. Pt was very sleepy. Call placed to dtr but no answer and her voice mail is full. Uncertain if she met with cm earlier this week. Will reattempt to contact her dtr. Pt will need a SNF that can offer ltc as well as rehab. She will need to address her trust/medicaid situation and give up [facility].
[2018-10-04 20:50] VITALS: BP 98/58
[2018-10-05 03:12] VITALS: BP 93/59
[2018-10-05 05:37] LABS: HEMATOCRIT 28.8 % (37.0-47.0); HEMOGLOBIN 9.5 gm/dL (12.0-15.0); MCH 28.6 pg (26.0-34.0); MCV 86.5 fL (80.0-100.0); RBC 3.33 mil/uL (4.20-5.00); RDW 17.3 % (10.5-14.5); WBC 11.4 thou/uL (4.0-11.0)
[2018-10-05 05:48] LABS: CALCIUM 9.1 mg/dL (8.5-10.1); CREATININE 1.2 mg/dL (0.6-1.0); MAGNESIUM 1.9 mg/dL (1.8-2.4); POTASSIUM 3.6 mmol/L (3.5-5.1)
--- NOTE | 2018-10-05 07:50 | NUR ---
ASSUMED CARE AT 1900, ASSESSMENT COMPLETED. PT C/O PAIN MAINLY IN HER LEGS, GIVEN TYLENOL, FLEXERIL, AND NORCO AT VARIOUS TIMES OVERNIGHT. Q2 TURNS WITH PILLOWS BETWEEN LEGS AND PRAFO BOOTS. DENIED NAUSEA OR SOB. MINIMAL OUTPUT FROM COLOSTOMY BUT LARGE AMOUNTS OF AIR PRODUCTION OVERNIGHT. IV ABX OVERNIGHT. WOUND VAC INTACT, WITH SMALL AMOUNT OF REDDISH LIQUID IN VACUUM CONTAINER. NO OTHER CONCERNS, REPORT GIVEN AT 0700.
--- NOTE | 2018-10-05 10:44 | NUR ---
PT RESING IN BED WOUND VAC IN PLACE. PT COMFORTABLE WAS GIVEN PRN PAIN MED EARLIER. TALKING ON PHONE.
[2018-10-05 18:02] VITALS: BP 113/53
[2018-10-06 04:11] VITALS: BP 124/60
--- NOTE | 2018-10-06 04:49 | NUR ---
ASSUMED CARE AT 1900, ASSESSMENT COMPLETED. PT C/O MORE GENERALIZED PAIN THAN PREVIOUS NIGHT SHIFTS, ALSO STATING THAT LEGS ARE HURTING MORE THAN USUAL, MULTIPLE PRN MEDS GIVEN. DENIES NAUSEA OR SOB. MINIMAL OUTPUT FROM COLOSTOMY, LARGE AMOUNTS OF CLEAR CEBALLOS URINE OUT OF LANIER. REPOSITIONING Q2 HOURS. CHANGED BED LINENS D/T SOILAGE. REINFORCED WOUND VAC DRESSING IT WAS SLIGHTLY LOOSE AND DECOMPRESSED, APPROPRIATE SUCTION RETURNED AFTER REINFORCEMENT. PT KEEPS STATING "DID I HAVE SOME KIND OF XRAY? I FEEL LIKE I WAS IN SOME KIND OF MACHINE WITH FLASHING LIGHTS." MORE DROWSY AND CONFUSED TONIGHT COMPARED TO PREVIOUS SHIFT, SLOW TO COMPREHEND STATEMENTS MADE BY STAFF. NO OTHER CONCERNS, WILL CONTINUE TO MONITOR.
[2018-10-06 05:10] LABS: HEMATOCRIT 28.2 % (37.0-47.0); HEMOGLOBIN 9.5 gm/dL (12.0-15.0); MCH 28.9 pg (26.0-34.0); MCHC 33.6 g/dL (28.0-37.0); MCV 85.9 fL (80.0-100.0); RBC 3.29 mil/uL (4.20-5.00); RDW 17.5 % (10.5-14.5); WBC 11.3 thou/uL (4.0-11.0)
[2018-10-06 05:27] LABS: CREATININE 1.1 mg/dL (0.6-1.0); MAGNESIUM 1.8 mg/dL (1.8-2.4); POTASSIUM 3.5 mmol/L (3.5-5.1)
[2018-10-06 09:32] VITALS: BP 163/85
[2018-10-06 17:49] VITALS: BP 112/64
[2018-10-06 20:05] VITALS: BP 101/53
--- NOTE | 2018-10-07 04:49 | NUR ---
RECEIVED PT'S CARE AROUND 1920; PT. OVER BED AOX4; DURING ASSESSMENT; PT. REQUESTED TO BE TURNED; TURNED OVER HER R. SIDE; INFORMED ABOUT NEXT PRN PAIN MEDICATION WOULD BE AVAILABLE; STChris UNDERSTANDING; AT 2300 PT. SLEEPING; AT 0026 VANCOMYCIN GIVEN; PT. REQUESTED PRN PAIN MEDICATION AND BEING TURNED; PRN PAIN MEDICATION GIVEN AND TURNED; REST OF THE NIGHT PT. SLEEPING UNTIL AROUND 0430 AM WHEN REQUESTED COUGH DROPS; COUGH DROOPS GIVEN AND TURNED OVER HER R. SIDE; INFORMED NEXT TIME OF TURNING WILL BE AROUND 0630; ASSESSMENT CHARGED; FOLLOWING POC; WILL PASS ON REPORT.
[2018-10-07 05:18] VITALS: BP 98/57
--- NOTE | 2018-10-07 08:16 | NUR ---
PT IS A&0X4, NONAMBULATORY, USES CALL LIGHT FOR NEEDS, Q2H TURNS, IS NOT IMPULSIVE, HAS WOUND VAC ON SACRUM AND COLOSTOMY ON RQ, MENTIONS EX SPOUSE LAST YEAR, AND HER MOM TWO YEARS AGO. WILL GIVE HER MORE ATTN LATER ON IN SHIFT FOR HER TO TALK ABOUT THESE LOSSES. ISO FOR MRSA/VRE HX
[2018-10-07] MEDS ORDERED: MAXIPIME 1 GM/D51 G1 IV (08:44)
[2018-10-07] MEDS ORDERED: VAN500AD IV (08:44)
--- NOTE | 2018-10-07 09:51 | NUR ---
Spoke with patient she is A/Ox4. Reports she has spoken to friend. She is aware [facility] unable to accept. She is interested in referrals to [facility], and [facility] in [place]. She is aware she needs to apply for [place] medicaid. referrals to facility for review.
--- NOTE | 2018-10-07 12:51 | NUR ---
FAXED REFERRAL TO [facility] SPOKE WITH SABINE IN ADM. AND THEY DO NOT ACCEPT PT'S INSURANCE. FAXED REFERRAL TO [facility]. LEFT MSG WITH ADM. TO REVIEW AND THAT PT. IS DC READY. DCP TO FOLLOW.
--- NOTE | 2018-10-07 13:43 | NUR ---
Followup: pt with chronic stage IV pressure ulcer s/p debridement. Good appetite and drinks daniel. Likely discharge soon. Low nutrition risk
--- NOTE | 2018-10-07 15:42 | NUR ---
WOUND FOLLOW UP: PT. WAS SEEN TODAY BY WOUND CARE TEAM. PT. WOUND VAC DRESSING WAS CHANGED TODAY ALONG WITH DRESSING TO LEFT MEDIAL CALF AND HEEL. PT. WOUNDS ARE ALL CLINICALLY BETTER AT THIS TIME. PT. TOLERATED PROCEDURES WELL. RECOMMENDATIONS: CONTINUE WITH CURRENT PLAN OF CARE. PT. AND STAFF NURSE WERE INSTRUCTED ON PLAN OF CARE.
[2018-10-07 15:59] VITALS: BP 109/62
--- NOTE | 2018-10-07 16:46 | NUR ---
[facility] TO RETURN CALL, BERNICE MOLD MAINTENANCE TECHNICIAN LEFT 2 MESSAGES. [facility] CANNOT ACCEPT. REFERRALS TO [facility].
--- NOTE | 2018-10-07 17:19 | NUR ---
FAXED REFERRAL TO [facility] WILL F/U IN AM WITH ADM LIASON AT FACILITY FAXED REFERRAL TO [facility] WITH ADM. FAXED REFERRAL TO [facility] WILL F/U WITH FACILITY IN AM. DCP TO FOLLOW.
[2018-10-07 19:41] VITALS: BP 111/59
[2018-10-08 03:58] VITALS: BP 115/60
--- NOTE | 2018-10-08 04:43 | NUR ---
PATIENT ALERT AND ORIENTED X4. C/O PAIN Q2-4 HOURS. PAIN MED GIVEN IF TIME. COLOSTOMY PATENT, EMPTIED X2. LANIER BAG CHANGED HOOK WAS BROKEDN. TURNED [id number].WOUND VAC ON SACRAL WOUND INTACT AND AT 125 CONTINOUS. SLEPT LITTLE THS SHIFT.
[2018-10-08 07:30] VITALS: BP 115/62
[2018-10-08] MEDS ORDERED: MEROPENEM-500 MG/50 IVPB (09:41)
--- NOTE | 2018-10-08 10:07 | PATH ---
[facility] [address] [place] [address] PATHOLOGY RPT PROCEDURE Name: NATALI UNGER Room #: 422-P [facility] IN M.R.#: [id number] ������������������ Admission: 09/30/18 ������������������ Date of : 52 Discharge: Report #: [id number] Path Case #: [id number] [facility] Accession Number: [id number] . 01 Material submitted: . SACRAL WOUND . 01 Clinical history: . Sacral wound . 02 Diagnosis: Sacral wound, debridement: - Marked acute inflammation associated with fibrinoid degeneration as well as necrosis, consistent with wound tissue. (IUV:emelyn; 10/07/2018) QMS/10/07/2018 . 02 Electronically signed: . Jasmyn Flower MD, Pathologist NPI- [id number] . 01 Gross description: . Received in formalin labeled "Gayla, Natali, sacral wound," are two segments of yellow-grady to dark red-brown soft tissue measuring 4.8 x 2.4 x 1.8 cm and 4.8 x 4.4 x 1.9 cm in greatest dimensions. Skin is not identified grossly. Serial sectioning reveals yellow-mcintosh to dark brown, grossly necrotic cut surfaces. Both segments are submitted representatively in cassette A1. (DAC; 10/04/2018) XDC/XDC . 02 Pathologist provided ICD-10: L08.9, I96 . 02 CPT . 586962 Specimen Comment: A courtesy copy of this report has been sent to Specimen Comment: [phone], , . Specimen Comment: Report sent to ,DR TRAN / DR DARDEN Specimen Comment: A duplicate report has been generated due to demographic updates. Performed at: [address], [place] [id number] MD Ney Zavala MD Phone: [phone] Performed at: [address] [address] PATHOLOGY RPT PROCEDURE Name: NATALI UNGER Room #: 422-P [facility] IN M.R.#: [id number] ������������������ Admission: 09/30/18 ������������������ Date of : 52 Discharge: Report #: [id number] Path Case #: [id number] [address] [place] [address], [place] [id number] MD Jasmyn Flower MD Phone: [phone]
--- NOTE | 2018-10-08 12:23 | NUR ---
WOUND FOLLOW UP: PT. WAS SEEN TODAY BY DR. POWER AND MYSELF. PT. WOUNDS ARE ALL C/D/I AT THIS TIME AND PT. HAS NO COMPLAINTS. RECOMMENDATIONS: CONTINUE WITH CURRENT PLAN OF CARE. PT. AND STAFF NURSE WERE INSTRUCTED ON PLAN OF CARE.
--- NOTE | 2018-10-08 14:11 | NUR ---
PATIENT WAS VERY EMOTIONAL ALL DAY. CRIED WITH ANY MENTION OF HER CHILDREN OR CURRENT SITUATION. PATIENT WAS TURNED EVERY 2 HOURS; TOLERATED WELL. NO FURTHER ESCALATION OF WOUND AND NO NEW WOUNDS. WHEN INFORMED SHE WOULD BE DISCHARGED, SHE WAS CONCERED ABOUT FINDING A FACILITY TO MOVE TO. PATIENT WILL BE DISCHARGED TODAY TO [facility].
--- NOTE | 2018-10-08 14:17 | NUR ---
I have reviewed and concur with student documentation.
--- NOTE | 2018-10-08 14:58 | NUR ---
Following for d/c planning needs. Spoke with Mera at [facility]. Liaison met with pt and has clinically accepted pt for admission. She will submit for auth from insurance and make arrangements for transport. Faxed updated PT/OT notes to liaison. Will remain available to assist as needed.
[2018-10-08 20:28] VITALS: BP 128/55
--- NOTE | 2018-10-09 04:58 | NUR ---
PATIENTS CARES WERE ASSUMED AT SHIFT. PATIENT WAS ASSESSED AND MEDS WERE PASSED. PATIENT IS A VERY NEEDY LADY AND CALLS OUT FREQUENTLY. PATIENT WAS TURN 2Q HOURS EXCEPT WHEN PATIENT WAS SLEEPING FROM MIDNIGHT TO 0500. THIS WAS DONE TO PROMOTE SLEEP. HOURLY ROUNDING WAS DONE. THE BED IS IN A LOW AND LOCKED POSITION. THE BED ALARM IS ON.
[2018-10-09 06:00] VITALS: BP 108/70
[2018-10-09 07:30] VITALS: BP 101/59
--- NOTE | 2018-10-09 10:48 | NUR ---
[facility] awaiting ins auth. They also note that they are in network with [facility] through their [facility] facility contract and provider number #[id number]. Trustee information and dtrs contact info provided to them to coordinate regarding her copay and transition to long term care social worker care once off her skilled benefit. Message left for her Trustee Brad Downs [phone] to advise on the dc plan and provide him with the facility information for ongoing financial arrangements and planning. Pt aware of dc plan. All parties anticipating possible dc today pending the ins auth.
[2018-10-09 16:00] VITALS: BP 102/63
--- NOTE | 2018-10-09 16:43 | NUR ---
WOUND FOLLOW UP: PT. WAS SEEN TODAY BY DR. MANCIA AND MYSELF. PT. WOUND VAC DRESSING WAS REMOVED AND PT. SHOULD BE TRANSPORTING TO SNF TODAY. PT. WOUND'S ARE CLINICALLY BETTER AT THIS TIME. DISCHARGE PLANNING WAS DISCUSSED AND WET TO DRY WAS PLACED FOR TRANSPORT. RECOMMENDATIONS: CONTINUE WITH CURRENT PLAN OF CARE. PT. AND STAFF NURSE WERE INSTRUCTED ON PLAN OF CARE.
[2018-10-09 21:41] VITALS: BP 112/70
--- NOTE | 2018-10-10 04:19 | NUR ---
ASSUMED CARE AT 1900, ASSESSMENT COMPLETED. PT SLEEPING MUCH OF SHIFT. TURNING REGULARLY. LANIER LEAKING SOME, CHANGED LINENS. GIVEN PAIN MEDS TWICE, C/O PAIN IN BACK AND LEGS. WET-TO-DRY DRESSING ON SACRUM IS INTACT. D/C PENDING INSURANCE AUTHORIZATION. NO OTHER CONCERNS, WILL CONTINUE TO MONITOR.
[2018-10-10 05:06] VITALS: BP 101/61
[2018-10-10 07:50] VITALS: BP 107/66
[2018-10-10 08:43] VITALS: BP 107/66
--- NOTE | 2018-10-10 09:34 | NUR ---
PT A&OX4, IV PICC LINE IN ANKUR, PIV IN L FA. PT NOT TRANSFERED YESTERDAY D/T INSURANCE AUTH. SACRAL WOUND VAC WAS REMOVED YESTERDAY AND PLACED WITH W/D DRSG. RECEIVING IV ANTIBIOTICS IN THE MEANWHILE. WILL CONT POC.
--- NOTE | 2018-10-10 13:49 | NUR ---
Spoke with Dorie at [facility]. She said they received insurance authorization for skilled. She will arrange stretcher transport and call back with pick-up time. Chart copy ordered. RN notified.
--- NOTE | 2018-10-10 16:22 | NUR ---
WOUND FOLLOW UP: PT. WAS SEEN TODAY BY DR. MANCIA AND MYSELF. PT. WAS IN [facility] TODAY AND WILL BE DISCHARGING TODAY. RECOMMENDATIONS: CONTINUE WITH CURRENT PLAN OF CARE. PT. AND STAFF NURSE WERE INSTRUCTED ON PLAN OF CARE.
--- NOTE | 2018-10-16 09:00 | O ---
[facility] [address] OPERATIVE REPORT Name: NATALI UNGER Room #: 422-P [facility] IN M.R.#: [id number] Admission: 09/30/18 ������������������ Attend Phys: Elsi Briceño Discharge: 10/10/18 ������������������ Date of : 52 Report #: [id number] THIS REPORT FOR: //name// CC: Elsi Peters DATE OF SERVICE: 10/03/2018 PREOPERATIVE DIAGNOSIS: Infected stage IV sacral decubitus wound. POSTOPERATIVE DIAGNOSIS. Infected stage IV sacral decubitus wound. PROCEDURES PERFORMED: 1. Excisional debridement of skin, subcutaneous tissue, muscle and bone of a stage IV sacral decubitus wound ultimately measuring 17 x 17 cm in dimension (289 square cm). Preoperative wound measurements were 16 x 16 cm in dimension with periwound necrosis. 2. Application of an extracellular matrix tissue to the entire bed of the wound measuring 289 square cm. SURGEON: Tejas Nowak M.D. STARCH COOKER: None. ANESTHESIA: General endotracheal anesthesia. ESTIMATED BLOOD LOSS: Minimal (less than 5 mL). COMPLICATIONS: None appreciated. SPECIMENS: All excised tissue to pathology. INDICATIONS: The patient is a 67-year-old paraplegic with a longstanding stage IV sacral decubitus wound shows recurrent necrosis and need of further debridement. DESCRIPTION OF PROCEDURE: After explaining the risks, benefits and alternatives of the procedure and obtaining consent, the patient was brought to the operating room and placed supine on the hospital bed. After conducting a thorough timeout procedure verifying correct patient and procedure, the patient was given general endotracheal anesthesia. Once adequate anesthesia was obtained, her SCDs were hooked up to pneumatic compression device. She is already on an inpatient regimen of IV antibiotic therapy, which is all in line with the SCIP protocol. [address] [address] OPERATIVE REPORT Name: NATALI UNGER Room #: 422-P [facility] IN ..#: [id number] Admission: 09/30/18 ������������������ Attend Phys: Elsi Briceño Discharge: 10/10/18 ������������������ Date of : 52 Report #: [id number] The patient was now positioned on the operating room table in the prone position with all pressure points appropriately padded and her sacral wound was prepped and draped in standard surgical sterile fashion. Electrocautery was used to circumferentially debride all nonviable skin, subcutaneous tissue and muscle from the periphery of the wound, carried down to the bed of the wound where bone was removed with rongeurs. Forsevaonix ultrasonic debridement tool was used to remove all remaining biofilm as well as remaining necrotic tissue. Hemostasis was assured with electrocautery. I now applied extracellular matrix tissue in the form of Intrafill covering 289 square cm. This was dressed with Adaptic, which was stapled to the skin around the wound as well as sterile saline soaked Kerlix gauze and dressed with ABDs and Medipore tape completing the procedure. At the end of the procedure, all instrument, needle and sponge counts were correct. The patient tolerated the procedure without incident, was awakened in the operating room, transitioned to the recovery room in stable condition with no apparent complications. ��������������������������������������������� <ELECTRONICALLY SIGNED> ���������������������������������������� By: Tejas Nowak MD, FACS ��������������������������������������������� 10/16/18 0900 1624 [id number] Tejas Nowak MD, FACS /nt
== END 2018-10-10 18:20 | DRG 853 ==
LOC: ER 18:09 → 4E 22:06 → EROBS 22:06 → 4E 23:31
PROVIDERS: Internal Medicine; Nurse Practitioner Family; Physician Assistant; Surgery; ADMIT Hospitalist
PROC: 0QB10ZZ Excision of Sacrum, Open Approach (ICD-10-PCS; 2018-10-03)
PROC: 02HV33Z Insertion of Infusion Device into Superior Vena Cava, Percutaneous Approach (ICD-10-PCS; principal; 2018-10-04)
DX: A41.9 Sepsis, unspecified organism (principal); L89.154 Pressure ulcer of sacral region, stage 4; E43 Unspecified severe protein-calorie malnutrition; G82.20 Paraplegia, unspecified; I50.30 Unspecified diastolic (congestive) heart failure; N39.0 Urinary tract infection, site not specified; M46.28 Osteomyelitis of vertebra, sacral and sacrococcygeal region; N17.9 Acute kidney failure, unspecified; A49.1 Streptococcal infection, unspecified site; E66.9 Obesity, unspecified; E78.5 Hyperlipidemia, unspecified; M19.90 Unspecified osteoarthritis, unspecified site; I25.10 Atherosclerotic heart disease of native coronary artery without angina pectoris; E87.6 Hypokalemia; M06.9 Rheumatoid arthritis, unspecified; L89.892 Pressure ulcer of other site, stage 2; F32.9 Major depressive disorder, single episode, unspecified; E16.2 Hypoglycemia, unspecified; M62.84 Sarcopenia; E83.42 Hypomagnesemia; Z68.31 Body mass index [BMI] 31.0-31.9, adult; Z86.718 Personal history of other venous thrombosis and embolism; Z79.899 Other long term (current) drug therapy; Z79.82 Long term (current) use of aspirin; Z86.711 Personal history of pulmonary embolism; Z93.1 Gastrostomy status; Z95.5 Presence of coronary angioplasty implant and graft; Z93.3 Colostomy status; Z88.1 Allergy status to other antibiotic agents; Z88.0 Allergy status to penicillin; Z88.8 Allergy status to other drugs, medicaments and biological substances; Z95.828 Presence of other vascular implants and grafts; Z91.19 Patient's noncompliance with other medical treatment and regimen; I11.0 Hypertensive heart disease with heart failure
CPT/HCPCS: 10084; 27000; 50010; 50101; 50386; 50403; 57119; 57120; 57192; 62110; 62900; 70005

== ENCOUNTER → 2018-10-31 | Outpatient (CLI) | payer OTHER ==
[~2018-10-31] MED LIST changes: +MAXIPIME 1 GM/D51 G1 IV; +MEROPENEM-500 MG/50 IVPB; +NEURONTIN 300300 M1 PO; +REGLAN 10 MG TA10 MG PO; +VAN500AD IV
== END ==
LOC: HYPER 06:47
DX: L89.154 Pressure ulcer of sacral region, stage 4 (principal); B36.9 Superficial mycosis, unspecified; R26.2 Difficulty in walking, not elsewhere classified; R54 Age-related physical debility; I25.2 Old myocardial infarction; K21.9 Gastro-esophageal reflux disease without esophagitis; M62.81 Muscle weakness (generalized)

== ENCOUNTER → 2018-11-27 | Outpatient (CLI) | payer OTHER | LOC: HYPER 07:00 | DX: L89.154 Pressure ulcer of sacral region, stage 4 (principal); B36.9 Superficial mycosis, unspecified; G62.9 Polyneuropathy, unspecified; I25.2 Old myocardial infarction; K21.9 Gastro-esophageal reflux disease without esophagitis ==

== ENCOUNTER → 2018-12-02 | Outpatient (CLI) | payer OTHER | LOC: ULTRA 09:15 | DX: K80.20 Calculus of gallbladder without cholecystitis without obstruction (principal); N28.1 Cyst of kidney, acquired; K82.8 Other specified diseases of gallbladder ==

== ENCOUNTER 2018-12-18 11:05 | Inpatient (IN) | payer OTHER ==
[~2018-12-18] VITALS: Ht 162.6 cm; Wt 73.9 kg
--- NOTE | ~2018-12-18 | HC ---
[facility] [place] [address] CONSULTATION Name: NATALI UNGER Room #: 449-I ADM IN .R.#: [id number] Admission: 12/18/18 ������������������ Attend Phys: Neil Tiwari MD Discharge: ������������������ Date of : 52 Report #: [id number] THIS REPORT FOR: //name// CC: FAM unknown Neil Tiwari DATE OF SERVICE: 12/19/2018 INFECTION DISEASES CONSULTATION REASON FOR CONSULTATION: I was asked to evaluate concerning sacral decubitus infection. HISTORY OF PRESENT ILLNESS: The patient is a 68-year-old with paraplegia following thoracic spinal hemorrhage. She has had a nonhealing sacral pressure wound that was treated in September 2018. She returns now with worsening wounds and purulent drainage. No fever, chills or sweats. Otherwise, feels well. Seen by general surgery who recommended surgical debridement. ALLERGIES: ERYTHROMYCIN, PENICILLIN, STATINS, COUMADIN. MEDICATIONS: As noted on her SEP, now on meropenem. PAST MEDICAL HISTORY: Obesity, hypertension, hyperlipidemia, osteoarthritis, coronary artery disease, DVT and pulmonary embolus, diastolic heart failure, paraplegia, dysphagia, fractured elbow, , cardiac stents, gastric ulcer, status post exploratory laparotomy and repair, herniorrhaphy, IVC filter, multiple debridements of sacral wounds, bilateral ankle wounds, diverting colostomy. FAMILY HISTORY: Noncontributory. SOCIAL HISTORY: Nonsmoker, no significant alcohol intake. REVIEW OF SYSTEMS: Ten-point review was negative other than what is described above in her HPI. PHYSICAL EXAMINATION: VITAL SIGNS: Afebrile, hemodynamically stable. GENERAL: Alert and cooperative. She was in no acute distress. Mild obesity. Paraplegic. SKIN: Sacral decubitus with moderate amount of drainage. Mild surrounding erythema, tunnels to the bone. No palpable adenopathy. HEENT: Eyes without scleral icterus. Mouth without mucositis. NECK: Supple. LUNGS: Clear. [facility] [address] [place] [address] CONSULTATION Name: NATALI UNGER Joel Room #: 449-I [facility] IN [facility]#: [id number] Admission: 12/18/18 ������������������ Attend Phys: Neil Tiwari MD Discharge: ������������������ Date of : 52 Report #: [id number] HEART: Regular, without murmur, gallop or rub. ABDOMEN: Soft, no appreciable mass or hepatosplenomegaly. Colostomy site was unremarkable with no surrounding erythema. GENITOURINARY: External genitalia unremarkable. No rash or wound. Has an indwelling Avery catheter. EXTREMITIES: Paraplegic, lower extremities. Small wound to the lateral aspect of her left ankle. LABORATORY STUDIES: Sodium 141, potassium 3.3, bicarbonate 25, creatinine 1. Hemoglobin 9.5, WBC 8.9, platelet count 586,000. Alkaline phosphatase 275. Liver function test otherwise normal. Culture of her sacral wound in September 2018 showed group B Streptococcus, methicillin-susceptible Staphylococcus aureus and Pseudomonas aeruginosa. IMPRESSION: 1. Paraplegia with nonhealing wound to the sacrum and associated osteomyelitis. 2. Hypertension. 3. Coronary artery disease. 4. Previous deep venous thrombosis and pulmonary embolism. RECOMMENDATIONS: We will continue meropenem pending surgical debridement and cultures. She had been seen by general surgery, anticipating surgery tomorrow. Follow laboratory studies. Continue offloading and wound care. Suspect the patient will require myocutaneous flap procedure down the road. ��������������������������������������������� ���������������������������������������� By: ��������������������������������������������� 0029 [id number] Juan David Delgado MD /nt
[2018-12-18 11:16] VITALS: BP 103/65
[2018-12-18 12:11] LABS: ABSOLUTE NEUTROPHILS 9.8 thou/uL (1.4-8.2); BASOPHILS 0.6 % (0.0-2.0); EOSINOPHILS 1.6 % (0.0-3.0); HEMATOCRIT 33.4 % (37.0-47.0); LYMPHOCYTES 20.4 % (24.0-44.0); MCH 27.4 pg (26.0-34.0); MCHC 32.8 g/dL (28.0-37.0); MCV 83.6 fL (80.0-100.0); MONOCYTES 6.5 % (1.0-8.0); PLATELET COUNT 657 thou/uL (150-400); POLYS 70.9 % (36.0-66.0); RBC 3.99 mil/uL (4.20-5.00); RDW 14.6 % (10.5-14.5); WBC 13.9 thou/uL (4.0-11.0)
[2018-12-18 12:20] LABS: CALCIUM 9.7 mg/dL (8.5-10.1); POTASSIUM 3.6 mmol/L (3.5-5.1)
[2018-12-18 12:26] LABS: ALBUMIN 2.3 g/dL (3.4-5.0); TOTAL BILIRUBIN 0.2 mg/dL (<0.1-1.0); TOTAL PROTEIN 7.7 g/dL (6.4-8.2)
[2018-12-18 15:05] VITALS: BP 109/56
[2018-12-18 17:07] VITALS: BP 102/67
[2018-12-18 17:19] VITALS: BP 112/58
[2018-12-18 19:12] VITALS: BP 118/60
--- NOTE | 2018-12-18 20:15 | NUR ---
PATIENT ADMITTED TO 449 FROM ER. PATIENT ALERT AND ORIENTED X 4. PATIENT HAS COCCYX WOUND, DRESSING IN PLACE, C/D/I. PATIENT HAS LANIER CATHETER IN PLACE WITH CLOUDY, YELLOW, SEDIMENT URINE NOTED. PATIENT HAS COLOSTOMY TO MID-ABDOMEN, FLUID FILLED BLISTER TO RIGHT SIDE OF ADBOMEN. PATIENT HAS LEFT AC IV 22G IN PLACE WITH NS AT 75CC/HR. PATIENT C/O SOME BACK PAIN. PATIENT IS PARAPLEGIA, NON-AMBULATING. ADMISSION ASSESSMENT DONE, PERIOPERATIVE ASSISTANT WILL DO PICTURE OF WOUND AND MEASUREMENTS. FALL PRECAUTIONS IN PLACE. WILL CONTUNUE TO MONITOR.
[2018-12-19 04:04] VITALS: BP 105/55
--- NOTE | 2018-12-19 05:14 | NUR ---
Assumed care at 1845. Pt resting in bed. AOX4. VSS. Turn Q2. Pictures taken of pressure ulcer. Dressing changed CDI. Wound culture sent to lab. Gena is intact. Pt denies pain. No identified needs at the moment. Will continue to monitor.
[2018-12-19 05:29] LABS: HEMATOCRIT 28.9 % (37.0-47.0); HEMOGLOBIN 9.5 gm/dL (12.0-15.0); MCH 27.6 pg (26.0-34.0); MCHC 33.1 g/dL (28.0-37.0); MCV 83.4 fL (80.0-100.0); RBC 3.46 mil/uL (4.20-5.00); RDW 14.2 % (10.5-14.5); WBC 8.9 thou/uL (4.0-11.0)
[2018-12-19 05:39] LABS: CALCIUM 8.9 mg/dL (8.5-10.1); POTASSIUM 3.3 mmol/L (3.5-5.1)
[2018-12-19 09:18] VITALS: BP 92/52
--- NOTE | 2018-12-19 11:37 | NUR ---
Nutrition: pt admitted with nonhealing stage 4 sacral wound. Hx paraplegia. Familiar with pt from multiple prior admits. Appetite is good generally. Noted UBW 180 and current weight of 163#. Pt feels this is accurate and is happy about the loss however has noted no change in the way clothes fit. RD re- weighed pt at 190#. Unsure of 163# accuracy. Pt is well aware of protein needs and likes Brett BID and ensure max daily per past admits. On MVI, ascorbic acid. Plan debridement. Place as low risk for now with interventions in place.
--- NOTE | 2018-12-19 13:42 | NUR ---
WOUND CONSULT; ROUNDING WITH DR VU TUTTLE TODAY. SACRAL STAGE 4 WOUND LOOKS PALE AND ODEROUS. THE PATIENT WAS ON A VAC DRESSING. RECOMMENDATION; 1-A SURGICAL CONSULT FOR DEBRIDEMENT. 2-JOY CASTELAN ABD DAILY/PRN DISCUSSED WITH HAMILTON
[2018-12-19 14:56] VITALS: BP 133/55
[2018-12-19 15:14] VITALS: BP 98/58
[2018-12-19 19:14] VITALS: BP 97/58
--- NOTE | 2018-12-19 19:54 | NUR ---
PT A&OX4, VSS, PAIN IN SACRUM. PT REQUEST TO BE TURNED Q3 AND HAS BEEN DONE. FALL BUNDLE IN PLACE. PT NPO AT MIDNIGHT AND AWARE, I&D IN THE AM. WILL CONTINUE TO MONITOR.
[2018-12-20] VITALS (8 sets, daily range): BP systolic 66–123; BP diastolic 38–68
--- NOTE | 2018-12-20 03:38 | NUR ---
Assumed pt care at 1900. Pt's A/OX4. VSS. C/o pain to back/sacrum, medicated with [place] with relief reported. Pt is paraplegic and requires max assist,turned every 3 hrs instead of 2 per request. Dressing to sacrum C/D/I. Pt has been NPO since midnight for a debridement today, Lovenox held at [facility] Type Caster notified. Colostomy/barakat patent draining yellow urine. Contact isolation maintained. Will continue to monitor pt. Fall precautions in place.
[2018-12-20 05:21] LABS: HEMATOCRIT 27.4 % (37.0-47.0); MCH 27.5 pg (26.0-34.0); MCV 83.5 fL (80.0-100.0); RBC 3.28 mil/uL (4.20-5.00); RDW 14.2 % (10.5-14.5); WBC 6.3 thou/uL (4.0-11.0)
[2018-12-20 05:28] LABS: CALCIUM 8.7 mg/dL (8.5-10.1); POTASSIUM 3.8 mmol/L (3.5-5.1)
--- NOTE | 2018-12-20 14:51 | NUR ---
WOUND CARE FOLLOW UP; S/P WOUND I&d TODAY. THE DRESSING WAS NOT VISUALIZED. THE PATIENT DENIES PAIN. CONT. CURRENT PLAN DISCUSSED WITH RN
--- NOTE | 2018-12-20 15:12 | NUR ---
patient admits with worsening ulcer. Rec I/D today. Patient is paraplegic. She dc from [facility] 10/10/18 to [facility] were she is now ltc. Patient A/Ox4. Her wc is in her room. Plan return to [facility] at pa. If dc over weekend call [phone] Martha is admissions with [facility] alert of dc if they can arrange transport and patients wc in room. Fax orders to [phone]. Sp with admissions today plan to update.
--- NOTE | 2018-12-20 15:26 | NUR ---
DISCHARGE PLANNING. PATIENT IS A RESIDENT AT [facility]. PLAN IS FOR PATIENT TO RETURN TO [facility] ONCE MEDICALLY READY. UPDATED CLINICAL INFORMATION FAXED TO JIGNESH MERCHANDISING EXECUTION ASSOCIATE. FOLLOWING TO ASSIST WITH DISCHARGE NEEDS.
--- NOTE | 2018-12-20 18:42 | NUR ---
PT A&OX4, VSS, PAIN IN SACRUM MANAGED WITH TYLENOL AND NORCO. PT HAD I&D TODAY, DRESSING C/D/I. FALL PRECAUTIONS IN PLACE. PATIENT TURNED Q3 AT HER OWN REQUEST. WILL CONTINUE TO MONITOR.
--- NOTE | 2018-12-20 19:40 | NUR ---
VASCULAR ACCESS CONSULTED FOR PIV. PT HAS HX MULTIPLE LINES, VESSELS DEEP.DISCUSSED BENEFITS AND RISK OF MIDLINE, PT VERBALIZED UNDERSTANDING AND GAVE CINSENT FOR MIDLINE. PT WAS PREPPED AND DRAPED FOR MAX BARRIER PRECAUTIONS. SHIRAZ BASILIC WAS WIDELY PATENT WITH USG. 4FR POWER MIDLINE INSERTED SHIRAZ TRIMMED TO 15CM INSERTED WITH 4CM EXTERNAL. LINE SECURED, RELEASED TO REINALDO VILLASENOR PER PROTOCOL
[2018-12-21 00:10] VITALS: BP 125/64
--- NOTE | 2018-12-21 02:46 | NUR ---
ASSUMED CARE AROUND 1900. AXOX4. HYPOTENSION NOTED. NS BOLUS, BP IMPROVED. NOTICED A DNR BRACELET ON LARM. PT WISHES TO BE DNR. CALLED [employer] TREATMENT PLANT OPERATOR HARIS BUS ATTENDANT FOR YUMI AND CODE STATUS CHANGED. SACRUM WOUND I&D TODAY. DRESSING WAS SOACKED IN CLEAR DRAINAGED. PERFROMED WET TO DRY TO KEEP THE DRESSING CDI. NO S/S ACUTE DISTRESS NOTED OR REPORTED AT THIS TIME. WILL CONT TO MONITOR ANY CHANGES IN CONDITION.
[2018-12-21 05:16] VITALS: BP 113/51
[2018-12-21 07:45] VITALS: BP 103/48
--- NOTE | 2018-12-21 11:16 | O ---
[facility] [place] [address] OPERATIVE REPORT Name: NATALI UNGER Room #: 449-I ADM IN .R.#: [id number] Admission: 12/18/18 ������������������ Attend Phys: Neil Tiwari MD Discharge: ������������������ Date of : 52 Report #: [id number] THIS REPORT FOR: //name// CC: FAM unknown Neil Tiwari DATE OF SERVICE: 12/20/2018 PREOPERATIVE DIAGNOSES: 1. Stage 4 sacral decubitus wound. 2. Paralysis. POSTOPERATIVE DIAGNOSES: 1. Stage 4 sacral decubitus wound. 2. Paralysis. PROCEDURE: Excisional debridement of skin, subcutaneous tissue, muscle and bone of the stage 4 sacral decubitus wound, ultimately measuring 22.5 x 13.5 cm in dimension (303.75 cm2). Preoperative wound measurements were similar, as the overall dimensions did not change substantially. SURGEON: Tejas Nowak M.D. HYDRAULIC CHAIR ASSEMBLER: None. ANESTHESIA: General endotracheal anesthesia. ESTIMATED BLOOD LOSS: Minimal (less than 10 mL). COMPLICATIONS: None appreciated. SPECIMENS: All excised tissue to pathology. INDICATIONS: The patient is a 68-year-old female with paralysis after undergoing evacuation of a clot from her spinal column, who developed a stage 4 sacral decubitus wound that has undergone multiple rounds of debridement over the past years and also necessitated diversion colostomy. The patient was readmitted with purulent drainage and necrotic tissue from the wound and as such, indication was for repeat debridement today. DESCRIPTION OF PROCEDURE: After explaining the risks, benefits and alternatives of the procedure with the patient in detail and obtaining consent, the patient was brought to the operating room and placed supine on her hospital cart. After conducting a thorough time-out procedure, verifying correct patient and procedure, the patient was given general endotracheal anesthesia. Once adequate anesthesia was obtained, her SCDs were hooked up to pneumatic compression device [facility] [address] [place] [address] OPERATIVE REPORT Name: NATALI UNGER Room #: 449-I [facility] IN [facility]#: [id number] Admission: 12/18/18 ������������������ Attend Phys: Neil Tiwari MD Discharge: ������������������ Date of : 52 Report #: [id number] and she was already on an inpatient regimen of IV antibiotic therapy. The patient was now positioned in the prone position with all pressure points appropriately padded on the operating room table and her sacral wound was prepped and draped in a standard surgical sterile fashion. Electrocautery was used to debride all nonviable skin, subcutaneous tissue and muscle from the periphery of the wound. Rongeurs were used to remove all nonviable tissue and bone from the bed of the wound. The MeFeediaonix ultrasonic debridement tool was now used to remove all remaining nonviable tissue as well as biofilm, carried down to healthy vascularized tissue throughout the bed of the wound. There was undermining in both lateral directions, although there was significant bulky vascularized healthy tissue overlying and as this is fully accessible to packing or wound VAC, I elected to not excise the overlying skin, thereby not changing the overall dimensions substantially. Hemostasis was assured with electrocautery. The wound was then packed tightly with sterile saline-soaked Kerlix gauze, dressed with 4 x 4s, ABDs and Medipore tape. At the end of the procedure, all instrument, needle and sponge counts were correct. The patient tolerated the procedure without incident, was awakened in the operating room and transitioned to the recovery room in stable condition, with no apparent complications. ��������������������������������������������� <ELECTRONICALLY SIGNED> ���������������������������������������� By: Tejas Nowak MD, FACS ��������������������������������������������� 12/21/18 1116 [id number] [id number] Tejas Nowak MD, FACS /nt
[2018-12-21 15:06] VITALS: BP 95/71
[2018-12-21 15:15] VITALS: BP 93/55
--- NOTE | 2018-12-21 15:27 | NUR ---
ASSUMED CARE 0700.A/0X4, FROM [facility]OS[facility] CONTROL COORDINATOR CARE. COMPLIANT WITH CARES, DRESSING CHANGED WET TO DRY. TURNS [id number] TOLERATED. PT MANAGES CARE OF OSTOMY BAG. LANIER PATENT. FALL PRECAUTIONS REMAIN IN PLACE. CALLS APPROPRIATLY.
--- NOTE | 2018-12-21 17:42 | HC ---
[facility] [place] [address] CONSULTATION Name: NATALI UNGER Room #: 449-I [facility] IN [facility].#: [id number] Admission: 12/18/18 ������������������ Attend Phys: Neil Tiwari MD Discharge: ������������������ Date of : 52 Report #: [id number] THIS REPORT FOR: //name// CC: FAM unknown Neil Tiwari DATE OF SERVICE: 12/19/2018 CHIEF COMPLAINT: Stage 4 sacral pressure ulcerations. HISTORY OF PRESENT ILLNESS: This is a 68-year-old female patient with whom I am familiar from previous hospitalization. She was admitted to the hospital with worsening sacral pressure ulceration and evidence of infection. She denies any fever or chills. 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 PAST MEDICAL HISTORY: Positive for history of hyperlipidemia, hypertension and paraplegia following a spinal hemorrhage, longstanding persistent sacral ulceration and a history of noncompliance with offloading. She has had a previous diverting colostomy and multiple previous surgical debridements. She also has a history of coronary artery disease. SOCIAL HISTORY: The patient denies alcohol or tobacco use. FAMILY HISTORY: Noncontributory. ALLERGIES: INCLUDE ERYTHROMYCIN, PENICILLIN, STATINS, AND COUMADIN. CURRENT MEDICATIONS: Include acetaminophen, Flexeril, metoprolol, hydrocodone, lactobacillus acidophilus, metoclopramide, gabapentin, aspirin, baclofen, and Protonix. REVIEW OF SYSTEMS: CONSTITUTIONAL: The patient denies fever, chills or weight loss. NEUROLOGICAL: The patient has paraplegia, but denies new focal weakness. ENT: The patient denies earache, nasal drainage, sore throat. CARDIOVASCULAR: The patient denies chest pain, palpitations or diaphoresis. PULMONARY: The patient denies cough or shortness of breath. GASTROINTESTINAL: The patient denies nausea, vomiting, diarrhea or abdominal pain. ORTHOPEDIC: The patient denies pain or swelling of her extremities. She is aware of the pressure ulceration on her sacrum and notes that the patient's long-term care facility has been unable to get a wound VAC to stay in place. Other systems in a 14-point review of systems are negative. [address] [address] CONSULTATION Name: NATALI UNGER Room #: 449-I ADM IN [facility]#: [id number] Admission: 12/18/18 ������������������ Attend Phys: Neil Tiwari MD Discharge: ������������������ Date of : 52 Report #: [id number] PHYSICAL EXAMINATION: VITAL SIGNS: At this time include temperature 36.6, pulse 90, respiratory rate 16, and blood pressure 120/60. GENERAL: This is a chronically ill-appearing female patient who appears to be in no distress. HEENT: Head normocephalic. Nose and throat clear. NECK: Supple. LUNGS: Clear. ABDOMEN: Positive bowel sounds present. EXTREMITIES: Examination of the sacral region demonstrates a stage 4 sacral pressure ulceration. There is some fibrinous material in the deep base and a very thin coating of granulation covering the bone, which is partially palpable. The lower extremities demonstrate some spasticity and flexion contracture of both lower extremities, but more so on the right than on the left. CLINICAL IMPRESSION: 1. Stage 4 sacral pressure ulceration with underlying wound infection. 2. Paraplegia secondary to previous spinal cord hemorrhage. 3. History of underlying sacral osteomyelitis. 4. Status post diverting colostomy. 5. Severe protein-calorie malnutrition with an albumin of 2.3. RECOMMENDATIONS: At this point in time, we will recommend and request surgical debridement of the area including bone if necessary. We will transition to a wound VAC following a few days of Dakin's moist gauze dressings. She will need low air loss surface, q. 2 hour turning and positioning. May need to consult rehabilitation for evaluation and recommendations for her lower extremity contractures that are developing and the persistent spasticity. I appreciate being asked to see her in consultation. ��������������������������������������������� <ELECTRONICALLY SIGNED> ���������������������������������������� By: Delano Castaneda MD ��������������������������������������������� 12/21/18 1742 [id number] Delano Castaneda MD /nt
[2018-12-21 19:50] VITALS: BP 103/50
--- NOTE | 2018-12-22 00:02 | NUR ---
Assumed care at 1845. Pt resting in bed. AOX4. VSS. Turn Q2H. Avery patent. Emptied ostomy bag. Pressure boots in place. 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 Call light within reach. Bed in lowest position. No identified needs at the moment. Will continue to monitor.
[2018-12-22 04:00] VITALS: BP 138/79
[2018-12-22 07:18] VITALS: BP 134/78
--- NOTE | 2018-12-22 13:00 | NUR ---
ASSUMED CARE 0700. ALERT X4, WOUND CARE PROVIDED PER ORDER. TURN Q2 HOURS TOLERATED. PT UNDERSTAND SHE MY DISCHARGE BACK TO FACILITY TOMORROW. FALL PRECAUTIONS IN PLACE. CALLS APPROPRIATLEY. CALL LIGHT IN REACH.
[2018-12-22 15:42] VITALS: BP 119/58
[2018-12-22 20:23] VITALS: BP 112/61
--- NOTE | 2018-12-23 03:27 | NUR ---
ASSUMED CARE AROUND 1900. AXOX4. NO S/S ACUTE DISTRESS NOTED OR REPORTED AT THIS TIME. SACRAL DRESSING CDI. WILL CONT TO MONITOR FOR ANY CHANGES IN CONDITION.
[2018-12-23 04:04] VITALS: BP 120/75
[2018-12-23 07:15] VITALS: BP 128/77
[2018-12-23 12:54] VITALS: BP 136/92
[2018-12-23] MEDS ORDERED: MEROPENEM-500 MG/50 IVPB (13:08)
--- NOTE | 2018-12-23 13:28 | NUR ---
CONSULTED TO REPLACE A MIDLINE THAT WAS PLACED 6/7- LINE IS LEAKING AT INSERTION SITE. DISCUSSED THIS WITH THE RN AND CONFIRMED THAT SHE MAY DISCHARGE ON HOME IV ANTIBIOTICS. A NEW MIDLINE WAS PLACED IN THE LEFT UPPER ARM BRACHIAL. LINE WAS TRIMMED TO 15CM AND ADVANCED TO 9CM INTERNAL. UNABLE TO ADVANCE THE FULL 15CM. +BR AND FLUSHED EASILY. LINE SECURED AND RELEASED FOR USE. THE RUE MIDLINE REMOVED AND DOCUMENTED
--- NOTE | 2018-12-23 14:29 | NUR ---
WOUND CARE FOLLOW UP; ROUNDING TODAY WITH DR VU MANCIA AND HEATHER SALES PROJECT COORDINATOR. WOUND BED IS MUCH PROFESSIONAL WRESTLER AFTER SURGICAL DECRIDEMENT. IT IS OK TO DISCHARGE BACK TO THE PATIENTS HEALTHCARE FACILITY TODAY. NO S/S OF INFECTION. RECOMMENDATIONS; CONTINUE CURRENT TREATMENT. DISCUSSED WITH HAMILTON
--- NOTE | 2018-12-23 14:30 | NUR ---
ASSUMED CARE 0700. WOUND CARE ROUNDED. DRESSING CHANGED BY THIS NURSE, PICTURE TAKEN PER DC PROTOCOL. DC BACK TO FACILITY LATER TODAY. A/OX4, ABLE TO MAKE NEEDS KNOWN. PAIN MANANAGBLE NO REQUEST FOR PRN MEDS. DC WITH MIDLINE FOR IV ANTIBIOTICS. FALL PRECAUTIONS REMAIN IN PLACE
--- NOTE | 2018-12-23 14:38 | NUR ---
PT IT TO DISCHARGE TO [facility] THIS DAY. CHART COPY MADE. ORDERS FAXED. PT IS AWARE AND AGREEABLE. DTR NOTIFIED. TRANSPORT SET UP FOR 3:30-4:00. REPORT TO BE CALLED TO . NO OTHER CM INTERVENTION INDICATED. CASE CLOSED.
[2018-12-23 14:47] VITALS: BP 114/65
== END 2018-12-23 16:24 | DRG 853 ==
LOC: ER 11:05 → EROBS 11:54 → 4W 11:54
PROVIDERS: Nurse Practitioner Family; ADMIT Hospitalist
DX: A41.9 Sepsis, unspecified organism (principal); L89.154 Pressure ulcer of sacral region, stage 4; E43 Unspecified severe protein-calorie malnutrition; K26.5 Chronic or unspecified duodenal ulcer with perforation; G82.20 Paraplegia, unspecified; I50.32 Chronic diastolic (congestive) heart failure; M46.28 Osteomyelitis of vertebra, sacral and sacrococcygeal region; E66.9 Obesity, unspecified; I11.0 Hypertensive heart disease with heart failure; M19.90 Unspecified osteoarthritis, unspecified site; I25.10 Atherosclerotic heart disease of native coronary artery without angina pectoris; E78.5 Hyperlipidemia, unspecified; Z86.718 Personal history of other venous thrombosis and embolism; Z86.711 Personal history of pulmonary embolism; Z68.28 Body mass index [BMI] 28.0-28.9, adult; Z98.891 History of uterine scar from previous surgery; Z95.5 Presence of coronary angioplasty implant and graft; Z88.0 Allergy status to penicillin; Z88.1 Allergy status to other antibiotic agents; Z88.8 Allergy status to other drugs, medicaments and biological substances
CPT/HCPCS: 10040; 27000; 50010; 50101; 50386; 50403; 57119; 57120; 62110; 62900; 70005

== ENCOUNTER → 2018-12-18 | Outpatient (CLI) | payer OTHER | LOC: HYPER 06:48 | DX: L89.154 Pressure ulcer of sacral region, stage 4 (principal); B36.9 Superficial mycosis, unspecified; G62.9 Polyneuropathy, unspecified; R54 Age-related physical debility; I25.2 Old myocardial infarction; K21.9 Gastro-esophageal reflux disease without esophagitis; M62.81 Muscle weakness (generalized) ==

== ENCOUNTER → 2019-02-06 | Outpatient (CLI) | payer OTHER | LOC: HYPER 07:02 | DX: L89.154 Pressure ulcer of sacral region, stage 4 (principal); B36.9 Superficial mycosis, unspecified; R54 Age-related physical debility; R26.2 Difficulty in walking, not elsewhere classified; I25.2 Old myocardial infarction; K21.9 Gastro-esophageal reflux disease without esophagitis; M62.81 Muscle weakness (generalized) ==

== ENCOUNTER 2019-03-06 06:55 | Inpatient (IN) | payer OTHER ==
[~2019-03-06] VITALS: Ht 162.6 cm; Wt 82.8 kg
[2019-03-06 18:48] LABS: ABSOLUTE NEUTROPHILS 7.8 thou/uL (1.4-8.2); EOSINOPHILS 2.7 % (0.0-3.0); HEMATOCRIT 33.1 % (37.0-47.0); HEMOGLOBIN 10.6 gm/dL (12.0-15.0); MCH 24.9 pg (26.0-34.0); MONOCYTES 6.8 % (1.0-8.0); PLATELET COUNT 482 thou/uL (150-400); POLYS 64.5 % (36.0-66.0); RBC 4.25 mil/uL (4.20-5.00); RDW 16.4 % (10.5-14.5); WBC 12.1 thou/uL (4.0-11.0)
[2019-03-06 19:00] LABS: ALBUMIN 2.6 g/dL (3.4-5.0); CALCIUM 10.1 mg/dL (8.5-10.1); MAGNESIUM 1.6 mg/dL (1.8-2.4); POTASSIUM 3.2 mmol/L (3.5-5.1); TOTAL BILIRUBIN 0.3 mg/dL (<0.1-1.0)
[2019-03-06 19:45] VITALS: BP 132/75
--- NOTE | 2019-03-06 19:54 | NUR ---
ASSUMED CARE OF PATIENT APPROX 1530. PATIENT A&OX4, VSS, PAIN IN COCCYX. ADMISSION ASSESSMENT COMPLETE, ISOLATION CART OUTSIDE ROOM, FALL PRECAUTIONS IN PLACE. ADMISSION PHOTO TAKEN AND IN CHART. PATIENT GIVEN NORCO FOR PAIN, AND IV ANTIBIOTICS HUNG ORDERED. DOCTOR AWARE PATIENT ON UNIT AND SNF, FELISA CHAVEZ CALLED FOR AN UPDATE.WILL CONTINUE TO MONITOR.
--- NOTE | 2019-03-07 02:16 | NUR ---
ASSUMED CARE OF PT AT 1900HRS. PT AOX4 AND LETS NEEDS BE KNOWN. FALL PRECAUTION IN PLACE. CONTACT ISOLATION CONTINUED. PT TURNED Q2 HOURS. PT REPORTED SOME PAIN AND WAS TREATED WITH PRN MEDICATION. PT WAS ABLE TO GET COMFORTABLE AND SLEEP PART OF THE SHIFT. NO S/S OF ACUTE DISTRESS. WILL CONTINUE TO MONITOR.
[2019-03-07 02:35] LABS: URINE BILIRUBIN NEGATIVE (Negative); URINE BLOOD 1+ (Negative); URINE CLARITY SL CLOUDY; URINE COLOR YELLOW; URINE GLUCOSE-RANDOM* NEGATIVE (Negative); URINE KETONES NEGATIVE (Negative); URINE NITRITE-REFLEX NEGATIVE (Negative); URINE PROTEIN (DIPSTICK) NEGATIVE (Negative); URINE SPECIFIC GRAVITY <= 1.005 (1.005-1.035); URINE UROBILINOGEN 0.2 E.U./dl (0.2-1.0)
[2019-03-07 02:36] LABS: URINE LEUKOCYTES-REFLEX 3+ (Negative)
[2019-03-07 02:54] LABS: CALCIUM OXALATE 0-3 Few /LPF (None Seen); CASTS None Seen /LPF (None Seen); MUCUS 0-3 Light strn/LPF (None Seen); SQUAMOUS 0-3 Few /LPF (0-3); URINE RBC 3-10 Few /HPF (0-2); URINE WBC-REFLEX >25 Many /HPF (0-5); WBC CLUMPS Rare (None Seen); YEAST-REFLEX Present (None Seen)
[2019-03-07 04:25] LABS: CALCIUM 9.9 mg/dL (8.5-10.1); MAGNESIUM 1.7 mg/dL (1.8-2.4); POTASSIUM 3.1 mmol/L (3.5-5.1)
[2019-03-07 04:41] LABS: BASOPHILS 0.9 % (0.0-2.0); EOSINOPHILS 4.9 % (0.0-3.0); HEMOGLOBIN 10.1 gm/dL (12.0-15.0); LYMPHOCYTES 33.3 % (24.0-44.0); MCH 25.4 pg (26.0-34.0); MCHC 32.6 g/dL (28.0-37.0); MONOCYTES 7.9 % (1.0-8.0); PLATELET COUNT 459 thou/uL (150-400); RBC 3.97 mil/uL (4.20-5.00); WBC 7.5 thou/uL (4.0-11.0)
[2019-03-07 08:03] VITALS: BP 121/63
--- NOTE | 2019-03-07 10:10 | NUR ---
Assess due to pt with stage IV chronic wound. Multiple admissions, readmitted and currently npo for debridement. Wts stays stable 182 lb. Pt able to verbalize importance of nutrition/protein for wound. Supplement preferances are juvn and Ensure Max which will start once diet advances. Does state appetite not as good as in past but still eats. B12 450, Vitamin D level pending. Low nutrition risk
--- NOTE | 2019-03-07 15:08 | NUR ---
PT ADMITTED REALTED TO WC/OV/INF SACRAL DECUB ULCER. CM REVIEWED CHART AND SPOKE WITH CARE TEAM. CM MET WITH PT AT BEDSIDE THIS DAY. PT IS A&O X4. CM ROLE INTRODUCED. PT INDICATED SHE LIVES IN LTC AT [facility]. PT INDICATED SHE HAD USED A WHEELCHAIR AND GLADYS LIFT TO ASSIST WITH MOBILITY COOK FROZEN DESSERT. PT'S HAS HER PERSONAL WC HERE IN ROOM. PT ALSO HAS HER WOUND VAC THAT SHE HAD BEEN WEARING AT THE [facility] HERE IN HER ROOM IT WAS ON HER BEDSIDE TABLE AT TIME OF ASSESSMENT. PT INDICATED SHE PLANS TO RETURN BACK TO [facility] ONCE MEDICALLY STABLE. IT IS ANTICPATED THAT PT WILL BE HERE OVER THE WEEKEND. CM TO FOLLOW INDICATED WITH DC PLANNING.
--- NOTE | 2019-03-07 16:46 | NUR ---
TURNED Q2H. WOUND CARE CHANGED DRESSING ON SACRUM. GOOD URINE OUTPUT NOTED. TOLERATED DIET. ABLE TO MAKE NEEDS KNOWN. PRESSURE RELIEF BOOTS APPLIED. HYDROCODONE GIVEN FOR LEG PAIN AND HELPFUL. LOW AIRLOSS MATTRESS INSTALLED. ON BEDREST. FALL PRECAUTIONS IN PLACE.
[2019-03-07 18:30] VITALS: BP 118/84
[2019-03-07 20:33] VITALS: BP 106/65
--- NOTE | 2019-03-08 05:08 | NUR ---
ASSUMED CARE OF PT AT 1900HRS. PT AOX4 AND LETS NEEDS ME KNOWN. FALL PRECAUTION IN PLACE. ABX TREATMENT CONTINUED. PT TURNED Q2H. PT REPORTED SOME PAIN AND WAS TREATED WITH PRN PAIN MEDS. NO S/S OF ACUTE DISTRESS. WILL CONTINUE TO MONITOR.
[2019-03-08 08:13] VITALS: BP 127/82
[2019-03-08 10:56] LABS: % SATURATION 10 % (20-39); IRON 31 ug/dL (50-170); TIBC 311 ug/dL (250-450)
--- NOTE | 2019-03-08 15:53 | NUR ---
AAOX4 PLEASANT AND COOPERATIVE. TURNED EVERY TWO HOURS. OSTOMY APPLIANCE CHANGED PER PATIENT REQUEST (SHE CHANGES HER APPLIANCE EVERY 72 HOURS). FED SELF WITH GOOD TOLERATION OF MEALS. LANIER TO DD WITH CLEAR YELLOW URINE OUTPUT. DRESSING CHANGE COMPLETED TO SACRAL WOUND - WOUND PINK AND CLEAN REPACKED WITH DAKINS SOAKED KERLIX AND COVERED WITH ABD. IV RIGHT UPPER ARM WITHOUT EYRTHEMA OR EDEMA.
[2019-03-08 16:39] VITALS: BP 121/78
[2019-03-09 05:18] LABS: ALBUMIN 2.1 g/dL (3.4-5.0); CALCIUM 8.7 mg/dL (8.5-10.1); CREATININE 1.1 mg/dL (0.6-1.0); MAGNESIUM 1.7 mg/dL (1.8-2.4); PHOSPHORUS 2.6 mg/dL (2.5-4.9)
--- NOTE | 2019-03-09 06:32 | NUR ---
Pt. rested quietly at short intervals during the night when checked on during frequent rounds. She has been given po pain meds for c/o buttocks pain (see emar) with some relief noted. Dressing changed to sacral wound. Bed alarm is on.
--- NOTE | 2019-03-09 17:50 | NUR ---
4FRDBLPICC PLACED FOR LT ABX. PLEASE SEE INSERTION NOTE FOR DETAILS
[2019-03-09 19:30] VITALS: BP 99/67
--- NOTE | 2019-03-09 20:36 | NUR ---
Assumed pt care this am, pt turned q2 and when requested. Refused dressing change. Colostomy care done and appliance replaced. FC patent drainig light yellow urine. PICC line on the right upper arm double lumen in place, consent signed. Surgeon saw pt, scheduled debriedment karen, explained to the pt the reasons for the procedure, pt signed the consent. Medication and diet is well tolerated, has a bout of nausea which was managed with medication. POC follwed, no signs or verbalizarions of distress have been noted.
--- NOTE | 2019-03-10 03:29 | NUR ---
patient aox4 makes needs known. patient turned q 2 hours while awake per patient request. patient calm and cooperative with care and meds. dressing done on the sacrum no odor, minimum drainage,wound bed is pink in color. pain controlled this shift. patient in bed asleep at this time breathing regular and unlaboured.
[2019-03-10 04:23] VITALS: BP 114/70
[2019-03-10 08:00] VITALS: BP 117/57
--- NOTE | 2019-03-10 08:31 | HC ---
[facility] [place] [address] CONSULTATION Name: NATALI UNGER Room #: 449-I ADM IN ..#: [id number] Admission: 03/06/19 Attend Phys: Caleb Mart MD Discharge: Date of : 52 Report #: [id number] THIS REPORT FOR: //name// CC: Caleb Peters DATE OF SERVICE: 03/07/2019 WOUND CARE CONSULTATION PERSONAL PHYSICIAN: Dr. Mart. CHIEF COMPLAINT: Infected sacral decubitus ulcer. HISTORY OF PRESENT ILLNESS: This is a 68-year-old white female who is well known to me for care of a chronic stage IV sacral decubitus ulcer, who was seen in my clinic yesterday and felt that the decubitus ulcer was infected and need of IV antibiotics. The patient was admitted from the clinic and started on IV antibiotics for the past 24 hours. The patient also is in need of further debridement of the ulcer. The patient denies any new ulcerations. The patient because of her paraplegia from a previous spinal hemorrhage evacuation surgery is insensate. The patient denies any other recent new wounds or concerns. PAST MEDICAL HISTORY: Significant for hyperlipidemia, hypertension, osteoarthritis, coronary artery disease. The history of spinal hemorrhage with evacuation of hematoma and subsequent paralysis, diastolic congestive heart failure, history of DVTs, previous IVC filter placed, chronic sacral decubitus ulcers, diverting colostomy. CURRENT MEDICATIONS: Multiple, I reviewed the patient's medication list. DRUG ALLERGIES: Include ERYTHROMYCIN, PENICILLIN AND COUMADIN. SOCIAL HISTORY: The patient denies smoking or alcohol use. Lives in a [facility]. FAMILY HISTORY: Not pertinent to current medical condition. REVIEW OF SYSTEMS: CONSTITUTIONAL: The patient denies fevers or chills. NEUROLOGIC: The patient denies new numbness, tingling or weakness in arms or legs. The patient is paralyzed. EYES: No complaints. ENT: No complaints. CARDIAC: The patient denies chest pain, palpitations or peripheral edema. [address] [address] CONSULTATION Name: NATALI UNGER Room #: 449-I [facility] IN [facility].#: [id number] Admission: 03/06/19 Attend Phys: Caleb Mart MD Discharge: Date of : 51 Report #: [id number] RESPIRATORY: The patient denies shortness of breath, cough or wheezes. GASTROINTESTINAL: The patient denies nausea, vomiting or abdominal pain. GENITOURINARY: The patient denies urgency or frequency. MUSCULOSKELETAL: No complaints. SKIN: There is a chronic stage IV sacral decubitus ulcer. PHYSICAL EXAMINATION: VITAL SIGNS: Temperature 37.3, pulse 84, respirations 18, BP 166/94. GENERAL: This is an alert and oriented x 3, pleasant white female who is in mild distress secondary to symptoms. HEENT: Normocephalic, atraumatic. Mucous membranes are somewhat dry. Pupils are round. Sclerae white. NECK: Supple, nontender. LUNGS: Clear. HEART: Regular. ABDOMEN: Soft, nontender. Colostomy is in place and functioning. EXTREMITIES: Evaluation of sacrococcygeal region reveals a chronic stage 4 decubitus ulcer, which is approximately 80% granulation tissue, 20% slough. There are small amount of exposed bone in the coccygeal region. There is no significant tunneling or undermining. Periwound is intact. There is moderate amount of serosanguineous drainage with xcau-jw-szuqspih odor. EXTREMITIES: Bilateral lower extremities are intact without any associated pressure ulcerations on the heels, foot or toes. NEUROLOGIC: Cranial nerves 2-12 are grossly intact. The patient is paralyzed below the waist. LABORATORY DATA: White count 12.1, hemoglobin 10.6 and albumin 2.1. IMPRESSION: 1. Stage 4 sacrococcygeal decubitus ulcer, infected. 2. Paralysis secondary to spinal surgery. 3. Protein-calorie malnutrition -- severe albumin 2.1. 4. Generalized debility. PLAN: General Surgery has been consulted for surgical debridement of the wound. We will continue with IV antibiotics. At this point in time, we will treat the wound with Dakin's quarter strength wet-to-dry dressings twice daily. The patient will be placed on low air loss mattress, have her turned every 2 hours. Once Surgery has been performed, we will consider a possible fdc placement for further wound care and rehabilitation. We will continue all other current medications including IV antibiotics and we will continue to follow the patient. <ELECTRONICALLY SIGNED> By: Isac Peters MD 03/10/19 0831 [id number] Isac Peters MD /nt
--- NOTE | 2019-03-10 13:12 | O ---
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 PROCEDURES PERFORMED: 1. Excisional debridement of skin, subcutaneous tissue, muscle and bone of a grossly infected stage IV sacral decubitus wound ultimately measuring 22.5 x 13.5 cm in dimension (303.75 square cm). Preoperative wound measurements were 20 x 12 cm in dimension with slight periwound necrosis and undermining. 2. Application of extracellular matrix tissue to the entire wound bed with surface area of 303.75 square cm. SURGEON: Tejas Nowak MD TITLE COORDINATOR: EDWARD student. ANESTHESIA: General endotracheal anesthesia. ESTIMATED BLOOD LOSS: Minimal (less than 5 mL). COMPLICATIONS: None appreciated. SPECIMENS: None. INDICATIONS: The patient is a 68-year-old female who is well known to me after suffering a spinal infarction with paraplegia and developing a stage 4 sacral decubitus wound that has necessitated multiple rounds of debridement as well as diverting colostomy. The patient was readmitted with worsening wound with periwound cellulitis and necrosis and gross infection and as such, indication was for the above-mentioned procedure today. DESCRIPTION OF PROCEDURE: After explaining the risks, benefits and alternatives of the procedure with the patient in the preoperative holding area and obtaining consent, the patient was brought to the operating room and placed supine on her hospital bed. After conducting a thorough timeout procedure verifying correct patient and procedure, the patient was given general endotracheal anesthesia. Once adequate anesthesia was obtained, her SCDs were hooked up to [address] [address] OPERATIVE REPORT Name: NATALI UNGER Room #: 449-I [facility].#: [id number] Admission: 03/06/19 Attend Phys: Caleb Mart MD Discharge: Date of : 52 Report #: [id number] compression device and she was given a preoperative dose of antibiotics in line with the SCIP protocol as she was already on an inpatient regimen of IV antibiotic therapy. The patient was now positioned in the prone position with all pressure points appropriately padded and her sacral wound was prepped and draped in standard surgical sterile fashion. Electrocautery was used to circumferentially debride all nonviable skin, subcutaneous tissue and muscle from the periphery of the wound, carried down to the bed of the wound. Rongeurs were used to excise a bony sacrum with jagged edges and a rasp was used to smooth out all bony exposure. The wound was copiously irrigated and the Melbossonix ultrasonic debridement tool was now used to remove all remaining nonviable tissue as well as biofilm from the entirety of the wound. Hemostasis was obtained with electrocautery and manual pressure. I then selected PriMatrix Ag mesh grafts to total of 303.75 square cm, which were applied to the bed of the wound throughout. These were stapled to the wound around the periphery and numerous sutures of 3-0 Vicryl were placed throughout the innermost portion of the mesh to hold the entire mesh in close approximation with the wound bed. The wound was then covered with Adaptic stapled to the skin and dressed with normal saline moistened Kerlix gauze, dressed with fluffs, ABDs and Medipore tape completing the procedure. At the end of the procedure, all instrument, needle and sponge counts were correct. The patient tolerated the procedure without incident, was awakened in the operating room and transitioned to the recovery room in stable condition with no apparent complications. <ELECTRONICALLY SIGNED> By: Tejas Nowak MD, FACS 03/10/19 1312 [id number] [id number] Tejas Nowak MD, FACS /nt
--- NOTE | 2019-03-10 14:35 | NUR ---
PATIENT RETURNED FROM SURGERY AT THIS TIME. DID COMPLAIN OF PAIN AND PRN PAIN MEDICATION ADMINISTERED. SHE IS AWAKE AND ALERT AT THIS TIME. WOUND DRESSING REMAINS DRY AND INTACT AT THIS TIME. PATIENT STATED SHE WANTS TO SLEEP. THAT SHE IS FEELING SLEEPY. REPOSITIONED IN BED. WILL CONT WITH PLAN OF CARE.
[2019-03-10 15:00] VITALS: BP 132/61
[2019-03-10 20:37] VITALS: BP 111/67
--- NOTE | 2019-03-11 05:19 | NUR ---
Pt. rested quietly at short intervals during the night when checked on during frequent rounds. She c/o buttocks pain and was given pain meds (see emar) with partial relief verbalized. Cepocal throat lozenges given (see emar) for c/o sore throat with relief noted. Dressing to buttocks has a moderate amount of serous drainage, but it is intact. She has been turned and re- positioned frequently during the shift. Bed alarm is on.
[2019-03-11 07:44] VITALS: BP 136/77
[2019-03-11 08:03] VITALS: BP 97/64
--- NOTE | 2019-03-11 11:33 | NUR ---
DISCHARGE PLANNING. PATIENT RESIDES AT [facility]. PLAN IS FOR PATIENT TO RETURN TO [facility] ONCE MEDICALLY READY FOR DISCHARGE. CLINICAL INFORMATION FAXED TO [facility] ADMISSIONS, VERIFIED RECEIVED. FOLLOWING.
[2019-03-11 14:00] VITALS: BP 138/71
--- NOTE | 2019-03-11 15:28 | NUR ---
DC SLITTER AND REWINDER FAXED CLINICAL UPDATE TO [facility]. CARE TEAM INDICATED POSSIBLE DC BACK TO FACILITY TOMORROW. CM TO FOLLOW INDICATED WITH DC PLANNING.
--- NOTE | 2019-03-11 19:53 | NUR ---
Assumed pt care this am, pt turned every 2 hours. Wound Vac was placed by the wound care team today. FC patent and draining light yellow urine, colostomy site in tact and free of infections producing brown formed stool. Pain manages tiwht medication partial relif was noted since pain is chronic, pt slept for most part of the day. Wound vac that she came in with was taken by personel from the facility she came from. Diet is well tolerated, POC followed, no signs or verbalizations of distress have been noted. VS stable, endorsed to [facility] night nurse.
[2019-03-11 20:02] VITALS: BP 123/63
--- NOTE | 2019-03-12 02:28 | NUR ---
ASSUMED CARE OF PT @1900. PT A&OX4. Q2TURN. PT C/O OF PAIN AND SPASM AND WAS MEDICATED APPROP. WOULD VAC IN PLACE AND DRAINING SMALL SEROSANGUINEOUS FLUID. LANIER AND COLOSTOMY IN PLACE AND PATENT. PLAN IS TO CONT. IVF, PAIN MANGAEMENT AND POSSIBLE DC BACK TO [facility]. FALL PREC IN PLACE. CALL PRATT WITHIN REACH
[2019-03-12 07:56] VITALS: BP 122/64
--- NOTE | 2019-03-12 12:29 | NUR ---
CARE TEAM INDICATED THAT PT IS MEDICALLY STABLE TO DC BACK TO [facility] THIS DAY. CHART COPY ORDERED. ORDERS FAXED. REPORT TO BE CALLED TO . TRANSPORT ARRANGE FOR [id number]. CM CALLED AND LEFT FOR PT'S DTR NOTIFYING HER OF PT'S RETURN. CM CALLED PT'S SON AND SPOKE WITH HIM, HE IS AWARE AND AGREEABLE. NO OTHER CM INTERVENTION INDICATED. CASE CLOSED.
[2019-03-12 13:30] VITALS: BP 114/55
--- NOTE | 2019-03-12 15:41 | NUR ---
PATIENT DISCHARGED AT THIS TIME LEFT [facility]. PT W/O PAIN OR RESP DISTRESS. ALL BELONGINGS PACKED AND SENT WITH PATIENT.
== END 2019-03-12 16:00 | DRG 981 ==
LOC: HYPER 06:55 → 4W 15:01
PROVIDERS: Hospitalist; Nurse Practitioner; ADMIT Hospitalist
PROC: 02HV33Z Insertion of Infusion Device into Superior Vena Cava, Percutaneous Approach (ICD-10-PCS; principal; 2019-03-09)
PROC: 0QB10ZZ Excision of Sacrum, Open Approach (ICD-10-PCS; 2019-03-10)
DX: L89.154 Pressure ulcer of sacral region, stage 4 (principal); E43 Unspecified severe protein-calorie malnutrition; K26.5 Chronic or unspecified duodenal ulcer with perforation; G82.20 Paraplegia, unspecified; I50.30 Unspecified diastolic (congestive) heart failure; I25.10 Atherosclerotic heart disease of native coronary artery without angina pectoris; F32.9 Major depressive disorder, single episode, unspecified; E66.9 Obesity, unspecified; E78.5 Hyperlipidemia, unspecified; M19.90 Unspecified osteoarthritis, unspecified site; M35.3 Polymyalgia rheumatica; G83.9 Paralytic syndrome, unspecified; I11.0 Hypertensive heart disease with heart failure; Z88.1 Allergy status to other antibiotic agents; Z88.0 Allergy status to penicillin; Z88.8 Allergy status to other drugs, medicaments and biological substances; Z68.31 Body mass index [BMI] 31.0-31.9, adult; Z86.14 Personal history of Methicillin resistant Staphylococcus aureus infection; Z86.718 Personal history of other venous thrombosis and embolism; Z87.81 Personal history of (healed) traumatic fracture; Z95.5 Presence of coronary angioplasty implant and graft; Z95.828 Presence of other vascular implants and grafts; Z93.3 Colostomy status
CPT/HCPCS: 10047; 27000; 50010; 50101; 50386; 50403; 51412; 56524; 57119; 57120; 57143; 65130; 70005

== ENCOUNTER → 2019-03-27 | Outpatient (CLI) | payer OTHER | LOC: HYPER 06:41 | DX: L89.154 Pressure ulcer of sacral region, stage 4 (principal); G82.22 Paraplegia, incomplete; M62.81 Muscle weakness (generalized); B36.9 Superficial mycosis, unspecified; G62.9 Polyneuropathy, unspecified; I25.2 Old myocardial infarction; R26.2 Difficulty in walking, not elsewhere classified; R54 Age-related physical debility ==

== ENCOUNTER → 2019-04-23 | Outpatient (CLI) | payer OTHER | LOC: HYPER 07:18 | DX: L89.154 Pressure ulcer of sacral region, stage 4 (principal); B36.9 Superficial mycosis, unspecified; G82.22 Paraplegia, incomplete; R54 Age-related physical debility; R26.2 Difficulty in walking, not elsewhere classified; I25.2 Old myocardial infarction; K21.9 Gastro-esophageal reflux disease without esophagitis; M62.81 Muscle weakness (generalized) ==

== ENCOUNTER → 2019-05-07 | Outpatient (CLI) | payer OTHER | LOC: HYPER 05:50 | DX: L89.154 Pressure ulcer of sacral region, stage 4 (principal); L89.309 Pressure ulcer of unspecified buttock, unspecified stage; G82.22 Paraplegia, incomplete; M62.81 Muscle weakness (generalized); B36.9 Superficial mycosis, unspecified; R26.2 Difficulty in walking, not elsewhere classified; I25.2 Old myocardial infarction; R54 Age-related physical debility ==